=== PATIENT | male | born 1935 | race Caucasian/White ===

== ENCOUNTER → 2016-08-11 | Outpatient (CLI) | payer MEDICARE, BC ==
[2016-08-11 12:25] LABS: ALT 37 U/L (21-72); AST 19 U/L (17-59); Alkaline Phosphatase 63 U/L (38-126); Anion Gap 11 mmol/L; Blood Urea Nitrogen 26 mg/dL (9-20); Calcium 9.8 mg/dL (8.4-10.2); Carbon Dioxide 27 mmol/L (22-30); Chloride 106 mmol/L (98-107); Cholesterol 154 mg/dL (<200); Glucose 106 mg/dL (74-99); HDL Cholesterol 40 mg/dL (40-60); Non-African American GFR(MDRD) >60 (>60 ml/min/1.73 sqM); Sodium 144 mmol/L (137-145); Total Bilirubin 0.6 mg/dL (0.2-1.3); Triglycerides 84 mg/dL (<150)
== END | disposition home or self-care (01) ==
LOC: LABWHC1 11:43
PROVIDERS: ATTEND Internal Medicine Interventional Cardiology
DX: E78.2 Mixed hyperlipidemia (principal)
CPT/HCPCS: 36415; 80053; 80061

== ENCOUNTER → 2017-02-22 | Outpatient (CLI) | payer MEDICARE, BC ==
[2017-02-22 10:30] LABS: ALT 33 U/L (21-72); Cholesterol 152 mg/dL (<200); HDL Cholesterol 39 mg/dL (40-60); Triglycerides 80 mg/dL (<150)
[2017-02-22 11:08] LABS: AST 19 U/L (17-59)
== END | disposition home or self-care (01) ==
LOC: LABWHC1 10:01
PROVIDERS: ATTEND Internal Medicine Interventional Cardiology
DX: E78.2 Mixed hyperlipidemia (principal)
CPT/HCPCS: 36415; 80061; 84450; 84460

== ENCOUNTER → 2018-03-07 | Outpatient (CLI) | payer MEDICARE, BC ==
[2018-03-07 11:34] LABS: Albumin 3.8 g/dL (3.5-5.0); Calcium 9.5 mg/dL (8.4-10.2); Total Bilirubin 0.5 mg/dL (0.2-1.3); Total Protein 6.4 g/dL (6.3-8.2)
[2018-03-07 11:39] LABS: Potassium 5.6 mmol/L (3.5-5.1)
== END | disposition home or self-care (01) ==
LOC: LABWHC1 10:40
PROVIDERS: ATTEND Internal Medicine Interventional Cardiology
DX: E78.2 Mixed hyperlipidemia (principal)
CPT/HCPCS: 36415; 80053; 80061

== ENCOUNTER → 2018-06-26 | Outpatient (CLI) | payer MEDICARE, BC ==
--- NOTE | 2018-06-26 16:39 | US ---
EXAMINATION TYPE: US duplex aorta DATE OF EXAM: 06/26/2018 COMPARISON: Correlation CT 06/06/2017 CLINICAL HISTORY: 83-year-old male I70.0 BLK JKT. Atherosclerosis of Aorta, nonsmoker, No hx ot high cholesterol TECHNIQUE: Multiple sonographic images of the abdominal aorta are obtained. FINDINGS: EXAM MEASUREMENTS: Abdominal Aorta: Proximal: 2.2 x 2.9 cm, ectatic Mid: 2.0 x 2.4 cm Distal: 1.5 x 2.0 cm Bifurcation: Right- 1.0 x 1.3 cm Left- 0.8 x 1.3 cm [employer]r [employer] notes:Portions of the Aorta are not seen due to overlying bowel gas. Atherosclerotic changes seen. Limited exam due to overlying bowel gas IMPRESSION: Bowel gas limits visualization of portions of the abdominal aorta. There is ectasia/borderline aneury sm of the proximal abdominal aorta at 2.9 cm. No visualized AAA.
== END ==
LOC: RADUSWWP 10:09
PROVIDERS: ATTEND Physician Assistant
DX: I71.4 Abdominal aortic aneurysm, without rupture (principal); I77.811 Abdominal aortic ectasia
CPT/HCPCS: 93979

== ENCOUNTER 2018-07-19 04:00 | Observation (INO) | payer MEDICARE, BC ==
[2018-07-19] MEDS ORDERED: ASPIRIN 81 MG PO STA (04:42)
--- NOTE | 2018-07-19 05:02 | ED ---
General Adult HPI - General Chief complaint: Abdominal Pain Stated complaint: Flank Pain Time Seen by Provider: 07/19/18 04:33 Source: patient, EMS Mode of arrival: EMS Limitations: no limitations, language barrier - History of Present Illness Initial comments: Otis is an 83-year-old male with a history of cardiac disease who presents to the emergency department today for evaluation of pain in his left flank and under his ribs on the left side. Patient reports intermittent he came pain in his left chest below his ribs. Patient reports over the past 2 weeks the pain is began occurring more frequently and more severely. Pain is associated with shortness of breath and occasional diaphoresis. Patient cannot identify any exacerbating or relieving factors. Patient reports this morning the pain happened and woke him from sleep which prompted him to come to ER for further evaluation. - Related Data Home Medications Medication Instructions Recorded Confirmed RX: Aspirin 81 mg PO HS 03/11/15 07/19/18 Atorvastatin [Lipitor] 40 mg PO HS 06/06/17 07/19/18 Previous Rx's Medication Instructions Recorded RX: Lisinopril [Zestril] 5 mg PO BID #180 tab 05/22/14 RX: Metoprolol Tartrate [Lopressor] 50 mg PO BID #180 tab 05/22/14 RX: Nitroglycerin Sl Tabs 0.4 mg SUBLINGUAL Q5M PRN #25 tab 05/22/14 [Nitrostat] RX: Spironolactone [Aldactone] 25 mg PO DAILY #90 tab 05/22/14 Allergies Allergy/AdvReac Type Severity Reaction Status Date / Time No Known Allergies Allergy Verified 07/19/18 08:22 Review of Systems ROS Statement: Those systems with pertinent positive or pertinent negative responses have been documented in the HPI. ROS Other: All systems not noted in ROS Statement are negative. Past Medical History Past Medical History: Hyperlipidemia, Hypertension, Myocardial Infarction (MD) Additional Past Medical History / Comment(s): 03/11/15 Pt presented to [facility] ER via EMS for L sided chest pain which has been episodic for about 2 weeks. Sometimes chest and throat pressure. He also notes upper L sided abdominal pain. He also has had headache and SOB as well as diaphoresis. Other HX: Anterior wall MD 05/18/14, ischemic cardiomyopathy with systolic dysfuction, Echo with mild LVH, left ventricular systolic function, moderate-severely impaired with EF 30-35%, mild tri/mitral regurg, A/s hypokinesis, apical anterior L ventricular wall hypokinesis, septal wall hypokinesis, spinal stenosis, numbness to bilateral legs and feet, BPH Last Myocardial Infarction Date:: 05/18/2014 History of Any Multi-Drug Resistant Organisms: None Reported Past Surgical History: Heart Catheterization With Stent Additional Past Surgical History / Comment(s): HEART CATH WITH 3 STENTS (2 stents to LAD) and 06/03/14 (1 stent to obtuse marginal), colonoscopy- normal Past Anesthesia/Blood Transfusion Reactions: No Reported Reaction Additional Past Anesthesia/Blood Transfusion Reaction / Comment(s): Pt states he has never had general anesthesia. He also has never recieved blood. Date of Last Stent Placement:: 06/03/14 Past Psychological History: No Psychological Hx Reported Smoking Status: Never smoker Past Alcohol Use History: None Reported Past Drug Use History: None Reported - Past Family History Father Family Medical History: No Reported History Additional Family Medical History / Comment(s): Father in his 80's. Mother Family Medical History: Coronary Artery Disease (CAD) Additional Family Medical History / Comment(s): Mother at age 63yrs and pt believes it may have been due to a heart problem. General Exam - General Exam Comments Initial Comments: Physical Exam GENERAL: Patient is well-developed and well-nourished. Patient is nontoxic and well- hydrated and is in no distress. HENT: Normocephalic, Atraumatic. EYES: PERRL, EOMI PULMONARY: Unlabored respirations. No audible rales rhonchi or wheezing was noted. CARDIOVASCULAR: There is a regular rate and rhythm Systolic murmur ABDOMEN: Soft and nontender with normal bowel sounds. SKIN: Skin is clear with no lesions or rashes and otherwise unremarkable. : Deferred NEUROLOGIC: Patient is alert and oriented x3. Moving all extremities spontaneously MUSCULOSKELETAL: Normal extremities with adequate strength and full range of motion. No lower extremity swelling or edema. No calf tenderness. PSYCHIATRIC: Normal psychiatric evaluation. Limitations: no limitations Limitations: no limitations, language barrier Course Vital Signs 07/19/18 07/19/18 07/19/18 04:02 06:46 07:49 Temperature 98.3 F 98.4 F 98.4 F Pulse Rate 87 70 70 Respiratory 19 19 18 Rate Blood Pressure 164/82 143/77 145/72 O2 Sat by Pulse 97 96 Oximetry EKG Findings - EKG Comments: EKG Findings:: EEG obtained at 4:10 AM, rate is 80, rhythm is sinus, normal axis , normal intervals, CO 200, QRS 108, QTC 452. No acute ST elevations or depressions no evidence of acute ischemia or infarction. Medical Decision Making - Medical Decision Making Patient was seen and evaluated history was obtained from patient and review of medical record sign patient describes this pain is left lateral flank below his ribs. Patient denies any chest pain but does complain of aching within his ribs. Patient reports his pain becoming more frequent and more severe. Patient does have a significant cardiac history. A cardiac was ordered, chest x-rays no acute findings, labs with no significant abnormalities, patient currently not on any antiplatelet or anticoagulant medication therefore CT pulmonary embolism study was ordered and revealed no acute pulmonary embolism. At this time I do feel there is a high risk of patient's discomfort being related to cardiac etiology therefore we'll plan to admit the patient with a consult to cardiology. Patient agreeable with this plan. - Lab Data Result diagrams: 07/19/18 04:06 07/19/18 04:06 Lab Results 07/19/18 07/19/18 07/19/18 Range/Units 04:06 04:06 04:06 WBC 9.4 (3.8-10.6) k/uL RBC 4.58 (4.30-5.90) m/uL Hgb 13.8 (13.0-17.5) gm/dL Hct 42.6 (39.0-53.0) % MCV 93.0 (80.0-100.0) fL MCH 30.2 (25.0-35.0) pg MCHC 32.4 (31.0-37.0) g/dL RDW 12.8 (11.5-15.5) % Plt Count 210 (150-450) k/uL Neutrophils % 55 % Lymphocytes % 32 % Monocytes % 6 % Eosinophils % 4 % Basophils % 1 % Neutrophils # 5.2 (1.3-7.7) k/uL Lymphocytes # 3.0 (1.0-4.8) k/uL Monocytes # 0.6 (0-1.0) k/uL Eosinophils # 0.4 (0-0.7) k/uL Basophils # 0.1 (0-0.2) k/uL PT (9.0-12.0) sec INR (<1.2) APTT (22.0-30.0) sec D-Dimer (<0.60) mg/L FEU Sodium 141 (137-145) mmol/L Potassium 4.3 (3.5-5.1) mmol/L Chloride 107 (98-107) mmol/L Carbon Dioxide 21 L (22-30) mmol/L Anion Gap 13 mmol/L BUN 36 H (9-20) mg/dL Creatinine 1.15 (0.66-1.25) mg/dL Est GFR (CKD-EPI)AfAm 67 (>60 ml/min/1.73 sqM) Est GFR (CKD-EPI)NonAf 58 (>60 ml/min/1.73 sqM) Glucose 104 H (74-99) mg/dL Calcium 9.1 (8.4-10.2) mg/dL Magnesium 2.0 (1.6-2.3) mg/dL Total Bilirubin 0.6 (0.2-1.3) mg/dL AST 24 (17-59) U/L ALT 38 (21-72) U/L Alkaline Phosphatase 69 (38-126) U/L Total Creatine Kinase 42 L (55-170) U/L CK-MB (CK-2) 0.5 (0.0-2.4) ng/mL CK-MB (CK-2) Rel Index 1.2 Troponin I <0.012 (0.000-0.034) ng/mL Total Protein 6.8 (6.3-8.2) g/dL Albumin 3.9 (3.5-5.0) g/dL Urine Color Urine Appearance (Clear) Urine pH (5.0-8.0) Ur Specific [place] (1.001-1.035) Urine Protein (Negative) Urine Glucose (UA) (Negative) Urine Ketones (Negative) Urine Blood (Negative) Urine Nitrite (Negative) Urine Bilirubin (Negative) Urine Urobilinogen (<2.0) mg/dL Ur Leukocyte Esterase (Negative) 07/19/18 07/19/18 Range/Units 04:06 06:00 WBC (3.8-10.6) k/uL RBC (4.30-5.90) m/uL Hgb (13.0-17.5) gm/dL Hct (39.0-53.0) % MCV (80.0-100.0) fL MCH (25.0-35.0) pg MCHC (31.0-37.0) g/dL RDW (11.5-15.5) % Plt Count (150-450) k/uL Neutrophils % % Lymphocytes % % Monocytes % % Eosinophils % % Basophils % % Neutrophils # (1.3-7.7) k/uL Lymphocytes # (1.0-4.8) k/uL Monocytes # (0-1.0) k/uL Eosinophils # (0-0.7) k/uL Basophils # (0-0.2) k/uL PT 11.0 (9.0-12.0) sec INR 1.0 (<1.2) APTT 24.6 (22.0-30.0) sec D-Dimer 0.54 (<0.60) mg/L FEU Sodium (137-145) mmol/L Potassium (3.5-5.1) mmol/L Chloride (98-107) mmol/L Carbon Dioxide (22-30) mmol/L Anion Gap mmol/L BUN (9-20) mg/dL Creatinine (0.66-1.25) mg/dL Est GFR (CKD-EPI)AfAm (>60 ml/min/1.73 sqM) Est GFR (CKD-EPI)NonAf (>60 ml/min/1.73 sqM) Glucose (74-99) mg/dL Calcium (8.4-10.2) mg/dL Magnesium (1.6-2.3) mg/dL Total Bilirubin (0.2-1.3) mg/dL AST (17-59) U/L ALT (21-72) U/L Alkaline Phosphatase (38-126) U/L Total Creatine Kinase (55-170) U/L CK-MB (CK-2) (0.0-2.4) ng/mL CK-MB (CK-2) Rel Index Troponin I (0.000-0.034) ng/mL Total Protein (6.3-8.2) g/dL Albumin (3.5-5.0) g/dL Urine Color Yellow Urine Appearance Clear (Clear) Urine pH 6.5 (5.0-8.0) Ur Specific [place] 1.015 (1.001-1.035) Urine Protein Negative (Negative) Urine Glucose (UA) Negative (Negative) Urine Ketones 1+ H (Negative) Urine Blood Negative (Negative) Urine Nitrite Negative (Negative) Urine Bilirubin Negative (Negative) Urine Urobilinogen <2.0 (<2.0) mg/dL Ur Leukocyte Esterase Negative (Negative) Disposition Clinical Impression: Chest pain Disposition: ADMITTED IP TO THIS HOSP Condition: Stable Is patient prescribed a controlled substance at d/c from ED?: No Referrals: Travon Larios MD [Primary Care Provider] - 1-2 days
--- NOTE | 2018-07-19 05:11 | XR ---
EXAM: XR Chest, 2 Views CLINICAL HISTORY: ITS.REASON XR Reason: Chest Pain TECHNIQUE: Frontal and lateral views of the chest. COMPARISON: 05/24/16 chest x-ray IMPRESSION: Cardiomegaly. No consolidation or pleural effusion.
[2018-07-19 06:24] LABS: Basophils # (A) 0.1 k/uL (0-0.2); Basophils % (A) 1 %; Eosinophils # (A) 0.4 k/uL (0-0.7); Eosinophils % (A) 4 %; HCT 42.6 % (39.0-53.0); HGB 13.8 gm/dL (13.0-17.5); Lymphocytes % (A) 32 %; MCH 30.2 pg (25.0-35.0); MCHC 32.4 g/dL (31.0-37.0); Mean Platelet Volume 7.9; Monocytes # (A) 0.6 k/uL (0-1.0); Monocytes % (A) 6 %; Neutrophils # (A) 5.2 k/uL (1.3-7.7); Neutrophils % (A) 55 %; Platelet Count 210 k/uL (150-450); RBC 4.58 m/uL (4.30-5.90); RDW 12.8 % (11.5-15.5); WBC 9.4 k/uL (3.8-10.6)
[2018-07-19 06:37] LABS: Albumin 3.9 g/dL (3.5-5.0); Calcium 9.1 mg/dL (8.4-10.2); Potassium 4.3 mmol/L (3.5-5.1); Total Bilirubin 0.6 mg/dL (0.2-1.3); Total Protein 6.8 g/dL (6.3-8.2)
[2018-07-19 06:38] LABS: D-Dimer 0.54 mg/L FEU (<0.60); Partial Thromboplastin Time 24.6 sec (22.0-30.0)
[2018-07-19 06:44] LABS: Appearance,Urine Clear (Clear); Bilirubin,Urine Negative (Negative); Blood,Urine Negative (Negative); Color,Urine Yellow; Glucose,Urine (UA) Negative (Negative); Ketones,Urine 1+ (Negative); Leukocyte Esterase,Urine Negative (Negative); Nitrite,Urine Negative (Negative); PH, Urine 6.5 (5.0-8.0); Protein,Urine Negative (Negative); Specific Gravity,Urine 1.015 (1.001-1.035); Urobilinogen,Urine <2.0 mg/dL (<2.0)
[2018-07-19 06:51] LABS: Creatine Kinase 42 U/L (55-170)
[2018-07-19 07:03] LABS: Creatine Kinase MB 0.5 ng/mL (0.0-2.4); Troponin I <0.012 ng/mL (0.000-0.034)
--- NOTE | 2018-07-19 08:04 | CT ---
CT CHEST FOR PULMONARY EMBOLISM. EXAMINATION TYPE: CT chest angio for PE DATE OF EXAM: 07/19/2018 INDICATION: Pleuritic pain, left side CT DLP: 367.8 mGycm, Automated exposure control for dose reduction was used. CONTRAST: Patient injected with 100 ml mL of Isovue 370. COMPARISON: None TECHNIQUE: CT of the chest is performed on a spiral scan at 2 mm thick sections. Study is performed with intravenous contrast timed for evaluation for pulmonary embolism. This will limit additional po rtions of the evaluation. 3-D MIP images reconstructed by the technologist are reviewed on the compu ter in the coronal and sagittal planes. FINDINGS: No persistent filling defects are evident to suggest an acute pulmonary embolism. No mediastinal or hilar adenopathy enlarged by CT criteria is evident. The ascending aorta diameter at the level of the main pulmonary artery is 3.8 cm. The main pulmonary artery diameter at the bifur cation is 2.7 cm. Very minimal pneumonitis changes are present within the dependent portions of the lungs, likely on th e basis of atelectasis. Limited CT section through the upper abdomen are unremarkable. IMPRESSIONS: 1. No acute pulmonary embolism.
[2018-07-19] MEDS ORDERED: NITROGLYCERIN SL TABS 0.4 MG TAB SUBLINGUAL PRN (08:26)
[2018-07-19] MEDS: METOPROLOL TARTRATE 50 MG TAB PO SCH ×2 (10:18→20:28)
[2018-07-19] MEDS: SPIRONOLACTONE 25 MG TAB PO SCH (10:18)
[2018-07-19] MEDS: LISINOPRIL 5 MG TAB PO SCH ×2 (10:18→20:28)
--- NOTE | 2018-07-19 11:12 | ECHOF ---
Referral Reason:pain MEASUREMENTS -------- HEIGHT: 180.3 cm WEIGHT: 93.0 kg BP: 145/72 RVIDd: 3.5 cm (< 3.3) IVSd: 1.3 cm (0.6 - 1.1) LVIDd: 4.0 cm (3.9 - 5.3) LVPWd: 1.3 cm (0.6 - 1.1) IVSs: 1.7 cm LVIDs: 2.9 cm LVPWs: 1.6 cm LA Diam: 2.8 cm (2.7 - 3.8) LAESV Index (A-L): 24.13 ml/m Ao Diam: 4.6 cm (2.0 - 3.7) AV Cusp: 2.0 cm (1.5 - 2.6) EPSS: 1.8 cm MV E Clay: 0.79 m/s MV DecT: 265 ms MV A Clay: 1.23 m/s MV E/A Ratio: 0.64 AR PHT: 317 ms MV EF SLOPE: 227.24 mm/s (70 - 150) MV EXCURSION: 1.93 cm (> 18.000) FINDINGS -------- Sinus rhythm. This was a technically difficult study with suboptimal views. The left ventricular size is normal. There is mild concentric left ventricular hypertrophy. Overa ll left ventricular systolic function is mild-moderately impaired with, an EF between 40 - 45 %. Mi d anterior LV wall motion is hypokinetic. Apical anterior LV wall motion is hypokinetic. Apical lateral LV wall motion is hypokinetic. Apical inferior LV wall motion is normal. Apical septum LV wall motion is hypokinetic. The right ventricle is mildly enlarged. The left atrial size is normal. The right atrial size is normal. 3 ml of Lumason was utilized for enhancement of images. The aortic valve is trileaflet and appears structurally normal. There is mild aortic regurgitation. Mild mitral annular calcification present. Mild mitral regurgitation is present. The tricuspid valve appears structurally normal. Trace tricuspid regurgitation present. Trace/mild (physiologic) pulmonic regurgitation. 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 IVC Not well visulized. There is no pericardial effusion. CONCLUSIONS -------- 1. Sinus rhythm. 2. This was a technically difficult study with suboptimal views. 3. The left ventricular size is normal. 4. There is mild concentric left ventricular hypertrophy. 5. Overall left ventricular systolic function is mild-moderately impaired with, an EF between 40 - 45 %. 6. Mid anterior LV wall motion is hypokinetic. 7. Apical anterior LV wall motion is hypokinetic. 8. Apical lateral LV wall motion is hypokinetic. 9. Apical inferior LV wall motion is normal. 10. Apical septum LV wall motion is hypokinetic. 11. The right ventricle is mildly enlarged. 12. The left atrial size is normal. 13. 3 ml of Lumason was utilized for enhancement of images. 14. The aortic valve is trileaflet and appears structurally normal. 15. There is mild aortic regurgitation. 16. Mild mitral annular calcification present. 17. Mild mitral regurgitation is present. 18. The tricuspid valve appears structurally normal. 19. Trace/mild (physiologic) pulmonic regurgitation. 20. 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 21. IVC Not well visulized. 22. There is no pericardial effusion. HOG TENDER: LAURENCE Peace
[2018-07-19 12:24] LABS: Creatine Kinase 48 U/L (55-170)
[2018-07-19 12:34] LABS: Creatine Kinase MB 0.5 ng/mL (0.0-2.4); Troponin I <0.012 ng/mL (0.000-0.034)
--- NOTE | 2018-07-19 14:26 | P.CRDCN ---
History of Present Illness History of present illness: This is a pleasant 83-year-old male past medical history significant for coronary artery disease status post multiple angioplasties, ischemic cardiomyopathy, chronic systolic heart failure, hypertension, dyslipidemia, diverticulitis, proximal aortic aneurysm and BPH. He follows with Dr. Alford in the office. We have been asked to see him in consultation for chest pain. He states for the previous 3-4 weeks he has been feeling a pain at the base of his ribs on the left torso/flank region. He denies any trauma or specific reason for the pain to have started. The pain comes when he takes a deep breath or lays a certain way. He states during the day he doesn't feel the pain as much when he is up and moving around. When he lays down at night on his right side is when he feels the pain. When he rolls to his left side the pain subsides. While he is having he pain sometimes he feels mild nausea but no vomiting. He denies shortness of breath, dizziness or palpitations. EKG reveals sinus mechanism with poor R-wave progression, no acute ST or T-wave abnormalities. Chest xray negative for an acute cardiopulmonary process. CTA negative for PE. Laboratory data reviewed, WBC 9.4, hemoglobin 13.8, platelets 210, d-dimer 0.54 , sodium 141, potassium 4.3, magnesium 2.0, creatinine 1.15, GFR 58, cardiac enzymes negative 1. Current cardiac medications include aspirin 81 mg daily, atorvastatin 40 mg daily, lisinopril 5 mg twice a day, Lopressor 50 mg twice a day and Aldactone 25 mg daily. Most recent echocardiogram performed in the office February 2018 reveals mildly impaired left ventricular function with ejection fraction 45%, mild to moderate aortic regurgitation, mild MR and mild TR. Most recent cardiac catheterization performed 2014 revealed a patent stent in the left circumflex and LAD arteries. Prior to that he underwent stenting of the proximal OM, 2 stents to mid LAD in 1 to the proximal LAD in 2013. He also had a 20% lesion noted in the mid RCA at that time. At the time of my exam: CONSTITUTIONAL: Denies fever. Denies chills. EYES: Denies blurred vision. Denies vision changes. Denies eye pain. EARS, NOSE, MOUTH & THROAT: Denies headache. Denies sore throat. Denies ear pain. CARDIOVASCULAR: Denies chest pain. Denies shortness of breath. Denies orthopnea. Denies PND. Denies palpitations. RESPIRATORY: Denies cough. GASTROINTESTINAL: Denies abdominal pain. Denies diarrhea. Denies constipation. Denies nausea. Denies vomiting. MUSCULOSKELETAL: Denies myalgias. INTEGUMENTARY: Denies pruitis. Denies rash. NEUROLOGIC: Denies numbness. Denies tingling. Denies weakness. PSYCHIATRIC: Denies anxiety. Denies depression. ENDOCRINE: Denies fatigue. Denies weight change. Denies polydipsia. Denies polyurina. GENITOURINARY: Denies burning, hematuria or urgency with micturation. HEMATOLOGIC: Denies history of anemia. Denies bleeding. Blood pressure 145/72 heart rate 70 afebrile maintaining oxygen saturation on room air GENERAL: This is a 83-year-old male in no apparent distress at the time of my examination. HEENT: Head is atraumatic, normocephalic. Pupils are equal, round. Sclerae anicteric. Conjunctivae are clear. Mucous membranes of the mouth are moist. Neck is supple. There is no jugular venous distention. No carotid bruit is heard. LUNGS: Clear to auscultation no wheezes, rales or rhonchi. No chest wall tenderness is noted on palpation or with deep breathing. HEART: Regular rate and rhythm with systolic ejection murmur at the base, no rubs or gallops. S1 and S2 heard. ABDOMEN: Soft, nontender. Bowel sounds are heard. No organomegaly noted. EXTREMITIES: No evidence of peripheral edema and no calf tenderness noted. VASCULAR: Radial and dorsalis pedis pulses palpated, no evidence of clubbing. NEUROLOGIC: Patient is awake, alert and oriented x3. ASSESSMENT Pleuritic left torso and flank pain History of coronary artery disease s/p multiple angioplasties 2014, patent stents noted on catheterization in 2015 Ischemic cardiomyopathy Chronic systolic heart failure, currently euvolemic Hypertension Dyslipidemia PLAN Obtain 2D echocardiogram and doppler study to assess cardiac structure and function. Check sedimentation rate and c-reactive protein. Consider possible imaging of the abdomen. Otherwise, pain is atypical for angina and most likely related to muscular type pain. Follow up with Dr. Alford in 2-3 weeks post discharge. Thank you kindly for this consultation. Nurse Practitioner note has been reviewed, I agree with a documented findings and plan of care. Patient was seen and examined. Past Medical History Past Medical History: Hypertension, Myocardial Infarction ([place]) Additional Past Medical History / Comment(s): Anterior wall IN 05/18/14, ischemic cardiomyopathy, spinal stenosis, numbness to bilateral legs and feet, BPH, pt denies hyperlipidemia-takes lipitor. Last Myocardial Infarction Date:: 05/18/2014 History of Any Multi-Drug Resistant Organisms: None Reported Past Surgical History: Heart Catheterization, Heart Catheterization With Stent Additional Past Surgical History / Comment(s): HEART CATH WITH 3 STENTS (2 stents to LAD) and 06/03/14 (1 stent to obtuse marginal), cardiac cath 2014, colonoscopy-normal Past Anesthesia/Blood Transfusion Reactions: No Reported Reaction Additional Past Anesthesia/Blood Transfusion Reaction / Comment(s): Pt states he has never had general anesthesia. He also has never recieved blood. Date of Last Stent Placement:: 06/03/14 Smoking Status: Never smoker - Past Family History Father Family Medical History: No Reported History Additional Family Medical History / Comment(s): Father in his 80's. Mother Family Medical History: Coronary Artery Disease (CAD) Additional Family Medical History / Comment(s): Mother at age 63yrs and pt believes it may have been due to a heart problem. Medications and Allergies Home Medications Medication Instructions Recorded Confirmed Type Lisinopril [Zestril] 5 mg PO BID #180 tab 05/22/14 07/19/18 Rx Metoprolol Tartrate [Lopressor] 50 mg PO BID #180 tab 05/22/14 07/19/18 Rx Nitroglycerin Sl Tabs [Nitrostat] 0.4 mg SUBLINGUAL Q5M PRN #25 tab 05/22/14 Rx Spironolactone [Aldactone] 25 mg PO DAILY #90 tab 05/22/14 07/19/18 Rx Aspirin 81 mg PO HS 03/11/15 07/19/18 History Atorvastatin [Lipitor] 40 mg PO HS 06/06/17 07/19/18 History Allergies Allergy/AdvReac Type Severity Reaction Status Date / Time No Known Allergies Allergy Verified 07/19/18 08:22 Physical Exam Vitals: Vital Signs Temp Pulse Resp BP Pulse Ox 07/19/18 07:49 98.4 F 70 18 145/72 07/19/18 06:46 98.4 F 70 19 143/77 96 07/19/18 04:02 98.3 F 87 19 164/82 97 Intake and Output 07/18/18 07/19/18 07/19/18 22:59 06:59 14:59 Other: Weight 92.986 kg Results 07/19/18 04:06 07/19/18 04:06 Cardiac Enzymes 07/19/18 07/19/18 Range/Units 04:06 04:06 AST 24 (17-59) U/L CK-MB (CK-2) 0.5 (0.0-2.4) ng/mL Troponin I <0.012 (0.000-0.034) ng/mL Coagulation 07/19/18 Range/Units 04:06 PT 11.0 (9.0-12.0) sec APTT 24.6 (22.0-30.0) sec CBC 07/19/18 Range/Units 04:06 WBC 9.4 (3.8-10.6) k/uL RBC 4.58 (4.30-5.90) m/uL Hgb 13.8 (13.0-17.5) gm/dL Hct 42.6 (39.0-53.0) % Plt Count 210 (150-450) k/uL Comprehensive Metabolic Panel 07/19/18 Range/Units 04:06 Sodium 141 (137-145) mmol/L Potassium 4.3 (3.5-5.1) mmol/L Chloride 107 (98-107) mmol/L Carbon Dioxide 21 L (22-30) mmol/L BUN 36 H (9-20) mg/dL Creatinine 1.15 (0.66-1.25) mg/dL Glucose 104 H (74-99) mg/dL Calcium 9.1 (8.4-10.2) mg/dL AST 24 (17-59) U/L ALT 38 (21-72) U/L Alkaline Phosphatase 69 (38-126) U/L Total Protein 6.8 (6.3-8.2) g/dL Albumin 3.9 (3.5-5.0) g/dL Current Medications Generic Name Dose Route Start Last Admin Trade Name Freq PRN Reason Stop Dose Admin Aspirin 325 mg 07/20/18 09:00 Aspirin PO DAILY [facility] Atorvastatin Calcium 40 mg 07/19/18 21:00 Lipitor PO HS MARJAN Lisinopril 5 mg 07/19/18 09:00 Zestril PO BID [facility] Metoprolol Tartrate 50 mg 07/19/18 09:00 Lopressor PO BID [facility] Nitroglycerin 0.4 mg 07/19/18 08:26 Nitrostat SUBLINGUAL Q5M PRN Chest Pain Spironolactone 25 mg 07/19/18 09:00 Aldactone PO DAILY [facility] Intake and Output 07/18/18 07/19/18 07/19/18 22:59 06:59 14:59 Other: Weight 92.986 kg 07/19/18 04:06 07/19/18 04:06
[2018-07-19] MEDS ORDERED: HYDROcodone/APAP 5-325MG 1 EACH TAB PO PRN (15:13)
[2018-07-19 16:54] LABS: Creatine Kinase 67 U/L (55-170)
[2018-07-19 17:07] LABS: Creatine Kinase MB 0.6 ng/mL (0.0-2.4); Troponin I <0.012 ng/mL (0.000-0.034)
[2018-07-19] MEDS ORDERED: ATORVASTATIN 40 MG TAB PO SCH (21:00)
[2018-07-20] MEDS: SODIUM CHLORIDE 0.9% 1,000 ML IV SCH ×2 (04:45→12:20)
[2018-07-20 07:24] LABS: Calcium 8.9 mg/dL (8.4-10.2); Potassium 4.6 mmol/L (3.5-5.1)
[2018-07-20 08:15] VITALS: RESP 16
[2018-07-20] MEDS: LISINOPRIL 5 MG TAB PO SCH (08:21)
[2018-07-20] MEDS: SPIRONOLACTONE 25 MG TAB PO SCH (08:21)
[2018-07-20] MEDS: METOPROLOL TARTRATE 50 MG TAB PO SCH (08:21)
[2018-07-20] MEDS ORDERED: ASPIRIN 325 MG TAB PO SCH (09:00)
[2018-07-20] MEDS ORDERED: ASPIRIN 81 MG PO SCH (09:00)
--- NOTE | 2018-07-20 12:59 | P.HPIM ---
History of Present Illness Date of service 07/19/2018. Patient seen and examined by me at bedside This is a pleasant 83 years old male with past medical history of hypertension, coronary artery disease, spinal stenosis stenosis, numbness in both legs and feet, BPH, hyperlipidemia, who presents because of progressively worsening left side abdominal pain thought processes due to the related to the chest however cost estimating engineer evaluated him and cleared him however he recommended abdominal imaging. Patient states the pain is slowly progressive over 2-3 weeks, and his maximum sutures 7/10. Nonspecific nonradiating but only on the left side. No associated nausea vomiting, no change in bowel or urine habits. Review of Systems CONSTITUTIONAL: No fever, no malaise, no fatigue. HEENT: No recent visual problems or hearing problems. Denied any sore throat. CARDIOVASCULAR: No orthopnea, PND, no palpitations, no syncope. PULMONARY: No shortness of breath, no cough, no hemoptysis. GASTROINTESTINAL: No diarrhea, no nausea, no vomiting, no abdominal pain. Normoactive bowel sounds. NEUROLOGICAL: No headaches, no weakness, no numbness. HEMATOLOGICAL: Denies any bleeding or petechiae. GENITOURINARY: Denies any burning micturition, frequency, or urgency. MUSCULOSKELETAL/RHEUMATOLOGICAL: Denies any joint pain, swelling, or any muscle pain. ENDOCRINE: Denies any polyuria or polydipsia. Past Medical History Past Medical History: Hypertension, Myocardial Infarction (PA) Additional Past Medical History / Comment(s): Anterior wall PA 05/18/14, ischemic cardiomyopathy, spinal stenosis, numbness to bilateral legs and feet, BPH, pt denies hyperlipidemia-takes lipitor. Last Myocardial Infarction Date:: 05/18/2014 History of Any Multi-Drug Resistant Organisms: None Reported Past Surgical History: Heart Catheterization, Heart Catheterization With Stent Additional Past Surgical History / Comment(s): HEART CATH WITH 3 STENTS (2 stents to LAD) and 06/03/14 (1 stent to obtuse marginal), cardiac cath 2014, colonoscopy-normal Past Anesthesia/Blood Transfusion Reactions: No Reported Reaction Additional Past Anesthesia/Blood Transfusion Reaction / Comment(s): Pt states he has never had general anesthesia. He also has never recieved blood. Date of Last Stent Placement:: 06/03/14 Smoking Status: Never smoker - Past Family History Father Family Medical History: No Reported History Additional Family Medical History / Comment(s): Father in his 80's. Mother Family Medical History: Coronary Artery Disease (CAD) Additional Family Medical History / Comment(s): Mother at age 63yrs and pt believes it may have been due to a heart problem. Medications and Allergies Home Medications Medication Instructions Recorded Confirmed Type RX: Lisinopril [Zestril] 5 mg PO BID #180 tab 05/22/14 07/19/18 Rx RX: Metoprolol Tartrate [Lopressor] 50 mg PO BID #180 tab 05/22/14 07/19/18 Rx RX: Nitroglycerin Sl Tabs 0.4 mg SUBLINGUAL Q5M PRN #25 tab 05/22/14 07/19/18 Rx [Nitrostat] RX: Spironolactone [Aldactone] 25 mg PO DAILY #90 tab 05/22/14 07/19/18 Rx RX: Aspirin 81 mg PO HS 03/11/15 07/19/18 History Atorvastatin [Lipitor] 40 mg PO HS 06/06/17 07/19/18 History Allergies Allergy/AdvReac Type Severity Reaction Status Date / Time No Known Allergies Allergy Verified 07/19/18 08:22 Physical Exam Vitals: Vital Signs Temp Pulse Pulse Resp BP BP Pulse Ox 07/20/18 12:00 97.6 F 59 L 16 103/56 97 07/20/18 08:00 98.3 F 66 16 142/74 95 07/20/18 04:00 97.6 F 64 18 119/66 96 07/20/18 00:00 97.7 F 71 18 116/65 96 07/19/18 20:00 76 18 07/19/18 19:59 98.4 F 76 18 128/67 96 07/19/18 14:14 98.4 F 79 18 143/69 97 07/19/18 13:47 98 F 77 20 106/76 97 Intake and Output 07/19/18 07/20/18 07/20/18 22:59 06:59 14:59 Intake Total 200 Balance 200 Intake: Oral 200 Other: Voiding Method Toilet Toilet Toilet # Voids 1 1 Weight 100.1 kg GENERAL: The patient is alert and oriented x3, not in any acute distress. Well developed, well nourished. HEENT: Pupils are round and equally reacting to light. EOMI. No scleral icterus. No conjunctival pallor. Normocephalic, atraumatic. No pharyngeal erythema. No thyromegaly. CARDIOVASCULAR: S1 and S2 present. No murmurs, rubs, or gallops. PULMONARY: Chest is clear to auscultation, no wheezing or crackles. ABDOMEN: Soft, nontender, nondistended, normoactive bowel sounds. No palpable organomegaly. MUSCULOSKELETAL: No joint swelling or deformity. EXTREMITIES: No cyanosis, clubbing, or pedal edema. NEUROLOGICAL: Gross neurological examination did not reveal any focal deficits. SKIN: No rashes. Results CBC & Chem 7: 07/19/18 04:06 07/20/18 06:42 Labs: Abnormal Lab Results - Last 24 Hours (Table) 07/20/18 Range/Units 06:42 Chloride 108 H (98-107) mmol/L BUN 28 H (9-20) mg/dL HDL Cholesterol 26 L (40-60) mg/dL Thrombosis Risk Factor Assmnt - Choose All That Apply Any of the Below Risk Factors Present?: Yes Each Factor Represents 1 point: Obesity (BMI >25) Each Risk Factor Represents 3 Points: Age 75 years or older Other congenital or acquired thrombophilia - If yes, enter type in comment: No Thrombosis Risk Factor Assessment Total Risk Factor Score: 4 Thrombosis Risk Factor Assessment Level: Moderate Risk Assessment and Plan Assessment: Left sided abdominal pain Left-sided chest pain, cardiology cleared the patient for discharge and follow- up in 3 weeks History of coronary artery disease History of ischemic cardiomyopathy History of hypertension Hyperlipidemia Numbness in both lower extremities. Plan: This is a pleasant 83 years old male who presents because of the left side abdominal pain. Continue with IV fluids, continue with pain medication. Cardiology consult is appreciated. Monitoring Labs and medication were reviewed.. Continue same treatment. Continue with symptomatic treatment. Resume home medication. Monitor lytes and vitals. DVT and GI prophylaxis. Further recommendations of the clinical course of the patient Prognosis is guarded
--- NOTE | 2018-07-20 13:07 | P.PN ---
Subjective This is a pleasant 83 years old male with past medical history of hypertension, coronary artery disease, spinal stenosis stenosis, numbness in both legs and feet, BPH, hyperlipidemia, who presents because of progressively worsening left side abdominal pain thought processes due to the related to the chest however hydro station operator evaluated him and cleared him however he recommended abdominal imaging. Patient states the pain is slowly progressive over 2-3 weeks, and his maximum sutures 7/10. Nonspecific nonradiating but only on the left side. No associated nausea vomiting, no change in bowel or urine habits. 07/20/2018, date of service Patient is seen and examined by me at bedside. Patient states that he has this pain last night about 7/10 in severity, however it came down to 3/10 this morning. However patient, first immediate is a slowly progressive over 2-3 weeks. Patient recommended to have a CAT scan of the abdomen without contrast. Patient preferred to be without contrast for now. Also we will call Surgical evaluation. We checked ESR today and is 8. Creatinine is 1.0. Sodium and potassium are within normal limits. Objective - Vital Signs Vital signs: Vital Signs Temp 97.6 F 07/20/18 12:00 Pulse 59 L 07/20/18 12:00 Resp 16 07/20/18 12:00 BP 103/56 07/20/18 12:00 Pulse Ox 97 07/20/18 12:00 Intake & Output 07/19/18 07/20/18 07/20/18 18:59 06:59 18:59 Intake Total 200 Balance 200 Weight 100.1 kg 100.1 kg Intake: Oral 200 Other: Voiding Method Toilet Toilet # Voids 1 1 - Exam GENERAL: The patient is alert and oriented x3, not in any acute distress. Well developed, well nourished. HEENT: Pupils are round and equally reacting to light. EOMI. No scleral icterus. No conjunctival pallor. Normocephalic, atraumatic. No pharyngeal erythema. No thyromegaly. CARDIOVASCULAR: S1 and S2 present. No murmurs, rubs, or gallops. PULMONARY: Chest is clear to auscultation, no wheezing or crackles. ABDOMEN: Soft, nontender, nondistended, normoactive bowel sounds. No palpable organomegaly. MUSCULOSKELETAL: No joint swelling or deformity. EXTREMITIES: No cyanosis, clubbing, or pedal edema. NEUROLOGICAL: Gross neurological examination did not reveal any focal deficits. SKIN: No rashes. - Labs CBC & Chem 7: 07/19/18 04:06 07/20/18 06:42 Labs: Abnormal Lab Results - Last 24 Hours (Table) 07/20/18 Range/Units 06:42 Chloride 108 H (98-107) mmol/L BUN 28 H (9-20) mg/dL HDL Cholesterol 26 L (40-60) mg/dL Assessment and Plan Assessment: Left sided abdominal pain Left-sided chest pain, cardiology cleared the patient for discharge and follow- up in 3 weeks History of coronary artery disease History of ischemic cardiomyopathy History of hypertension Hyperlipidemia Numbness in both lower extremities. Plan: This is a pleasant 83 years old male who presents because of the left side abdominal pain. Continue with IV fluids, continue with pain medication. Cardiology consult is appreciated. keep Monitoring. Call surgical consult. CAT scan of the abdomen Labs and medication were reviewed.. Continue same treatment. Continue with symptomatic treatment. Resume home medication. Monitor lytes and vitals. DVT and GI prophylaxis. Further recommendations of the clinical course of the patient Prognosis is guarded
--- NOTE | 2018-07-20 14:22 | CT ---
EXAMINATION TYPE: CT abdomen pelvis w con DATE OF EXAM: 07/20/2018 COMPARISON: 06/06/2017 HISTORY: Left sided flank pain CT DLP: 1313.6 mGycm Automated exposure control for dose reduction was used. TECHNIQUE: Helical acquisition of images was performed from the lung bases through the pelvis. CONTRAST: Performed without Oral Contrast and with IV Contrast, patient injected with 80 mL of Isovue 300. FINDINGS: There is mild subsegmental atelectasis at the left lung base. There is no pleural effusion. Heart siz e is normal. There is no pericardial effusion. Liver shows no focal defect. Gallbladder appears normal. Bile ducts are not dilated. There is 1 0 m c yst in the superior spleen. Stomach appears normal. There is no adrenal mass. There is no evidence of pancreatic mass. There is vascular calcification. There is no hydronephrosis. Kidneys show satisfactory contrast opacification. Ureters are not dilated . There is no retroperitoneal adenopathy. Bladder distends smoothly. Prostate is enlarged and measure s 5 cm. There is no inguinal hernia. There is no free fluid in the pelvis. There are multiple sigmoid diverticula. There is no sign of diverticulitis. There is no evidence of a bowel obstruction. Append ix appears normal. There is no mesenteric edema or adenopathy. There is no evidence of a bowel obstruction. There is spondylotic changes in the lumbar spine and multilevel severe lumbar spinal stenosis from L1 to L5. 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 IMPRESSION: MILD SIGMOID DIVERTICULOSIS WITHOUT DIVERTICULITIS. MULTILEVEL LUMBAR MODERATELY SEVERE SPINAL STENOS IS. NO SIGNIFICANT CHANGE COMPARED TO OLD EXAM.
[2018-07-20] MEDS ORDERED: ACETAMINOPHEN TAB 325 MG TAB PO PRN (15:41)
[2018-07-20] MEDS ORDERED: LIDOCAINE 5% PATCH TOPICAL SCH (16:00)
[2018-07-20 16:15] VITALS: BP 132/69; PULSE 67; TEMP 97.5
[2018-07-20] MEDS ORDERED: FAMOTIDINE 20 MG/2 ML VIAL IV SCH (21:00)
[2018-07-20] MEDS ORDERED: HEPARIN SODIUM,PORCINE 5,000 UNIT/ML 1 ML VIAL SQ SCH (21:00)
--- NOTE | 2018-07-26 07:31 | P.DS ---
Providers Date of admission: 07/19/18 08:26 Attending physician: Tiesha Landin Consults: 07/19/18 08:26 Consult Physician Urgent Consulting Provider: [facility] Consult Reason/Comments: chest pain Do you want consulting provider notified?: Yes 07/20/18 15:27 Consult Physician Routine Consulting Provider: Travon Eddy Consult Reason/Comments: flank pain Do you want consulting provider notified?: Already Contacted Primary care physician: Travon Larios [facility] Course: This is a pleasant 83 years old male with past medical history of hypertension, coronary artery disease, spinal stenosis stenosis, numbness in both legs and feet, BPH, hyperlipidemia, who presents because of progressively worsening left side abdominal pain thought processes due to the related to the chest however lead fire protection engineer evaluated him and cleared him however he recommended abdominal imaging. Patient states the pain is slowly progressive over 2-3 weeks, pain was Nonspecific nonradiating but only on the left side on both chest and abdomen, the pain it self got worse with movement , and when pt was lying on one side. No associated nausea vomiting, no change in bowel or urine habits. pain was 7/10 in severity, however it came down to 3/10, and it was improving. we consulted surgeon who recommended CT of contrast, pt initially rejected to do contrast for risk of nephrotoxicity , however he agreed after the surgeon also recommended it. risks , including but not limited to risk of nephrotoxicity , benefits and alternative are explained for the pt and he verbalized understanding and acceptance. i also contacted the radioliologist who reviewed the case with me and he recommended benefits are more than risks to do the new CT with iv contrast. the CT of abd/Pelvis is reviewed in detail with the surgeon , it is very unlikely for the spleenic cyst to cause pt s/s. pain medication is provided for the pt upon discharge he was improving, he wanted to be discharged home and he agrees to do the follow up. pt also states he is aware of his spinal stenosis and back pain problem and that he is going to f/u with the orthopedic and contact info is provided for him as ravindra. he was cleared for discharge by all consultants, problems and management plan was discussed with the pt and he verbalized understanding and acceptance. pt is found stable and could be discharged however he needs follow up as outpt. he agrees with appointmetn that was made with his pcp. Discharge exam Gen.: Patient alert awake and oriented X 3, NOT IN DISTRESS CVS: s1-s2, RRR, no murmur CHEST:bilateral CTA, no wheezing or crepitation Abdomen: Soft, no tenderness, no distention, positive bowel sounds Extremities: No leg edema or induration time spent : more than 35 min Patient Condition at Discharge: Stable Plan - Discharge Summary Discharge Rx Participant: No New Discharge Prescriptions: New Acetaminophen Tab [Tylenol] 650 mg PO Q6HR PRN #50 tab PRN Reason: Fever And/ Or Pain Lidocaine 5% Patch [Lidoderm 5% Patch] 1 patch TOPICAL DAILY #30 patch Continue Lisinopril [Zestril] 5 mg PO BID #180 tab Metoprolol Tartrate [Lopressor] 50 mg PO BID #180 tab Nitroglycerin Sl Tabs [Nitrostat] 0.4 mg SUBLINGUAL Q5M PRN #25 tab PRN Reason: Chest Pain Spironolactone [Aldactone] 25 mg PO DAILY #90 tab Aspirin 81 mg PO HS Atorvastatin [Lipitor] 40 mg PO HS Discharge Medication List Lisinopril [Zestril] 5 mg PO BID #180 tab 05/22/14 [Rx] Metoprolol Tartrate [Lopressor] 50 mg PO BID #180 tab 05/22/14 [Rx] Nitroglycerin Sl Tabs [Nitrostat] 0.4 mg SUBLINGUAL Q5M PRN #25 tab 05/22/14 [Rx ] Spironolactone [Aldactone] 25 mg PO DAILY #90 tab 05/22/14 [Rx] Aspirin 81 mg PO HS 03/11/15 [History] Atorvastatin [Lipitor] 40 mg PO HS 06/06/17 [History] Acetaminophen Tab [Tylenol] 650 mg PO Q6HR PRN #50 tab 07/20/18 [Rx] Lidocaine 5% Patch [Lidoderm 5% Patch] 1 patch TOPICAL DAILY #30 patch 07/20/18 [Rx] Follow up Appointment(s)/Referral(s): Travon Larios MD [Primary Care Provider] - 07/26/18 9:30 am Angelina Alford MD [STAFF PHYSICIAN] - 2 Weeks ([employer] Custodian) Dick Martin DO [Doctor of Osteopathic Medicine] - 1 Week (spinal stenosis) Activity/Diet/Wound Care/Special Instructions: cardiac diet activity is limited till you see your doctor avoid NSAIDS, like abuprofbrynn gregorio ponstan Discharge Disposition: HOME SELF-CARE
== END 2018-07-20 17:30 | disposition home or self-care (01) ==
LOC: EC 04:00 → 1SOBS 08:26
PROVIDERS: ADMIT Hospitalist; ATTEND Hospitalist
DX: R07.89 Other chest pain (principal); R10.9 Unspecified abdominal pain; R11.0 Nausea; R20.0 Anesthesia of skin; R61 Generalized hyperhidrosis; K57.30 Diverticulosis of large intestine without perforation or abscess without bleeding; I11.0 Hypertensive heart disease with heart failure; I50.22 Chronic systolic (congestive) heart failure; I25.10 Atherosclerotic heart disease of native coronary artery without angina pectoris; E78.5 Hyperlipidemia, unspecified; N40.0 Benign prostatic hyperplasia without lower urinary tract symptoms; I25.5 Ischemic cardiomyopathy; I08.3 Combined rheumatic disorders of mitral, aortic and tricuspid valves; I71.9 Aortic aneurysm of unspecified site, without rupture; M48.061 Spinal stenosis, lumbar region without neurogenic claudication; E66.9 Obesity, unspecified; Z68.30 Body mass index [BMI] 30.0-30.9, adult; Z79.82 Long term (current) use of aspirin; Z79.899 Other long term (current) drug therapy; I25.2 Old myocardial infarction; Z95.5 Presence of coronary angioplasty implant and graft; Z82.49 Family history of ischemic heart disease and other diseases of the circulatory system
CPT/HCPCS: 99285; 36415; 93005; 85379; 80061; 80053; 80048; 85652; 82550; 82553; 83735; 84484; 85025; 85610; 85730; 86140; 81003; 71046; 71275; 74177; G0378 ×2; C8929; Q9950; Q9967 ×2; 93306

== ENCOUNTER → 2018-09-26 | Outpatient (CLI) | payer MEDICARE, BC ==
[2018-09-26 18:23] LABS: Albumin 3.9 g/dL (3.80-4.90); Albumin/Globulin Ratio 1.95 (1.60-3.17); Anion Gap 10.7 mmol/L (4.00-12.00); Calcium 9.3 mg/dL (8.7-10.3); Carbon Dioxide 22.3 mmol/L (21.6-31.8); LDL Cholesterol,Calculated 50.6 mg/dL (0.0-131.0); Potassium 4.7 mmol/L (3.5-5.5); Total Bilirubin 0.6 mg/dL (0.2-1.2); Total Protein 5.9 g/dL (6.2-8.2); VLDL Calculation 12.4 mg/dL (5.00-40.00)
== END ==
LOC: LABWHC1 11:19
PROVIDERS: ATTEND Internal Medicine Interventional Cardiology
DX: E78.2 Mixed hyperlipidemia (principal)
CPT/HCPCS: 36415; 80053; 80061

== ENCOUNTER → 2019-04-05 | Outpatient (CLI) | payer MEDICARE, BC ==
[2019-04-05 17:19] LABS: Chol/HDL Ratio 2.9; LDL Cholesterol,Calculated 45.6 mg/dL (0.0-131.0); VLDL Calculation 13.4 mg/dL (5.00-40.00)
== END | disposition home or self-care (01) ==
LOC: LABWHC1 11:15
PROVIDERS: ATTEND Nurse Practitioner Adult Health
DX: E78.2 Mixed hyperlipidemia (principal)
CPT/HCPCS: 36415; 80061; 84450; 84460

== ENCOUNTER → 2019-06-12 | Outpatient (CLI) | payer MEDICARE, BC ==
--- NOTE | 2019-06-12 14:03 | MR ---
EXAMINATION TYPE: MR lumbar spine wo/w con DATE OF EXAM: 06/12/2019 COMPARISON: CT abdomen and pelvis July 20, 2018. HISTORY: Spinal stenosis TECHNIQUE: Multiplanar, multisequence images of the lumbar spine is performed without and with IV contrast, util izing 10 mL intravenous Gadavist FINDINGS: Sagittal images of the lumbar spine show vertebral body heights to remain satisfactory. Spi ne is straightened on sagittal images. There is dextro convex scoliotic curvature centered near lumbo sacral junction redemonstrated. Multilevel disc desiccation and disc space narrowing more prominent L 2-L3 and L5-S1 levels. Moderate 2 severe multilevel anterior spurring is redemonstrated. The bone mar row signal intensity is overall heterogeneous with some endplate Modic type II changes L3-L4 level. N o suspicious enhancement. Hemangioma noted involving L1 vertebra sagittal image 5. Axial images at T12-L1 level shows mild/moderate broad-based disc bulge effacing the anterior thecal sac with mild facet degenerative changes and ligamentum flavum hypertrophy effacing right posterior l ateral thecal sac. Bilateral neural foramina are patent. Axial images L1-L2 level show moderate broad disc bulge effacing the anterior thecal sac with moderat e facet degenerative changes and ligament hypertrophy effacing posterior lateral thecal sac. Diminish ed AP diameter spinal canal. [id number] left-sided anterior inferior neural foraminal narrowing . Axial images at the L2-L3 level show moderate to advanced broad disc bulge and moderate to advanced f acet degenerative changes and ligamentum flavum hypertrophy effacing the anterior and posterior later al thecal sac on axial image 17 with [id number] bilateral anterior inferior neural foraminal na rrowing. Axial images at L3-L4 level show severe facet arthropathy and ligament flavum hypertrophy effacing la teral thecal sac axial image 13 with advanced broad disc bulge effacing the anterior thecal sac. Spin al canal stenosis thought present. Moderate to severe bilateral neural foraminal narrowing encroachin g on both L3 nerves most prominent on the left sagittal image 7. Axial images at L4-L5 level show advanced facet arthropathy and ligament flavum hypertrophy effacing posterior lateral thecal sac axial image 7 with advanced broad disc bulge effacing anterior thecal sa c. There is advanced left sided neural foraminal narrowing. Right-sided neural foramina is patent wit h inferior positioning of the exiting right L4 nerve noted on sagittal images. Axial images at L5-S1 level show moderate to advanced facet degenerative changes. There is moderate b road disc bulge. Spinal canal is preserved. There is moderate left-sided neural foraminal narrowing. Right-sided neural foramen is patent. No suspicious incidental retroperitoneal finding. IMPRESSION: Multilevel fairly advanced degenerative changes with most prominent spinal canal stenosis noted L3-L4 level as detailed above.
== END | disposition home or self-care (01) ==
LOC: RADMRIMAIN 12:37
PROVIDERS: ATTEND Family Medicine
DX: M48.061 Spinal stenosis, lumbar region without neurogenic claudication (principal); M47.816 Spondylosis without myelopathy or radiculopathy, lumbar region
CPT/HCPCS: 72158; A9585

== ENCOUNTER → 2019-08-27 | Outpatient (CLI) | payer MEDICARE, BC ==
--- NOTE | 2019-08-27 23:28 | MR ---
EXAMINATION TYPE: MR cspine/tspine wo con DATE OF EXAM: 08/27/2019 COMPARISON: None HISTORY: Stenosis of thoracic and cervical spine Multiplanar multiecho imaging of the cervical and thoracic spine was performed without contrast. There is apparent old anterior fusion surgery at C4-5. There is posterior endplate spur formation and disc herniation at C3-4 and C5-6 with narrowing of the spinal canal. There is flattening of the cerv ical spinal cord and the spinal canal is 3 mm at C3-4. Canal measures 5 mm at C5-6. There is very mi nimal edema in the cord at C3-4. The brainstem is intact. There is no compression fracture. There is hypertrophic multilevel facet arthropathy. There is no cervical paraspinal mass. Thoracic vertebra have normal alignment. Disc spaces are fairly normal. There is no compression fract ure. There is posterior endplate spur formation at T10-11 with narrowing of the spinal canal. There i s small disc herniation and endplate spur formation at T12-L1. Thoracic spinal cord shows no evidence of a mass. There is no thoracic compression fracture. Posterior elements are intact. There is no tho racic paraspinal mass. There is no focal bone destruction. IMPRESSION: There is very severe cervical spinal stenosis due to posterior disc herniation and spur formation at C3-4. There is moderately severe spinal stenosis at C5-6 due to disc herniation and posterior spur formatio n. Mild posterior disc herniations at T10-11 and T12-L1 with a mild relative spinal stenosis. No fracture seen.
== END | disposition home or self-care (01) ==
LOC: RADMRIMAIN 10:23
PROVIDERS: ATTEND Neurological Surgery
DX: M48.02 Spinal stenosis, cervical region (principal); M48.04 Spinal stenosis, thoracic region; M48.05 Spinal stenosis, thoracolumbar region; M50.21 Other cervical disc displacement, high cervical region; M51.24 Other intervertebral disc displacement, thoracic region; M51.25 Other intervertebral disc displacement, thoracolumbar region
CPT/HCPCS: 72141; 72146

== ENCOUNTER 2020-02-07 09:59 | Emergency (ER) | payer MEDICARE, BC ==
[2020-02-07 10:11] VITALS: RESP 18; TEMP 98.7
[2020-02-07] MEDS ORDERED: ASPIRIN 81 MG PO STA (10:40)
[2020-02-07] MEDS ORDERED: NITROGLYCERIN OINT 1 INCH/GM PACKET TOPICAL STA (10:40)
--- NOTE | 2020-02-07 10:43 | ED ---
General Adult HPI - General Chief complaint: Arrhythmia/Palpitations Stated complaint: rapid heart/SOB/cough Time Seen by Provider: 02/07/20 10:00 Source: patient, family, RN notes reviewed, old records reviewed Mode of arrival: wheelchair Limitations: no limitations - History of Present Illness Initial comments: This is an 84-year-old male who presents emergency Department complaining of multiple complaints. Patient states yesterday he exerted himself which she doesn't a daily basis and he became very short of breath and had some chest pressure. Patient states when he rests it dissipated. Patient states this morning an episode of a rapid heart rate greater than 100 beats a minute for about 20 minutes and then subsided. Patient also states since beginning of October is a very bad dry cough and he has had no fevers and only minimal sputum production. Patient currently denies any chest pain or shortness of breath while in bed. Patient denies any increase in swelling of the legs even though he always has some swelling the right is always greater than the left. Patient denies any lightheadedness dizziness. Patient denies any headache patient denies numbness weakness. - Related Data Home Medications Medication Instructions Recorded Confirmed Aspirin 81 mg PO HS 03/11/15 07/19/18 Atorvastatin [Lipitor] 40 mg PO HS 06/06/17 07/19/18 Previous Rx's Medication Instructions Recorded Lisinopril [Zestril] 5 mg PO BID #180 tab 05/22/14 Metoprolol Tartrate [Lopressor] 50 mg PO BID #180 tab 05/22/14 Nitroglycerin Sl Tabs [Nitrostat] 0.4 mg SUBLINGUAL Q5M PRN #25 tab 05/22/14 Spironolactone [Aldactone] 25 mg PO DAILY #90 tab 05/22/14 Acetaminophen Tab [Tylenol] 650 mg PO Q6HR PRN #50 tab 07/20/18 Lidocaine 5% Patch [Lidoderm 5% 1 patch TOPICAL DAILY #30 patch 07/20/18 Patch] Allergies Allergy/AdvReac Type Severity Reaction Status Date / Time No Known Allergies Allergy Verified 02/07/20 10:07 Review of Systems ROS Statement: Those systems with pertinent positive or pertinent negative responses have been documented in the HPI. ROS Other: All systems not noted in ROS Statement are negative. 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 Last Myocardial Infarction Date:: 05/18/2014 History of Any Multi-Drug Resistant Organisms: None Reported Past Surgical History: Heart Catheterization, Heart Catheterization With Stent Additional Past Surgical History / Comment(s): HEART CATH WITH 3 STENTS 05/18/14 (2 stents to LAD) and 06/03/14 (1 stent to obtuse marginal), cardiac cath 2014, colonoscopy-normal Past Anesthesia/Blood Transfusion Reactions: No Reported Reaction Additional Past Anesthesia/Blood Transfusion Reaction / Comment(s): Pt states he has never had general anesthesia. He also has never recieved blood. Date of Last Stent Placement:: 06/03/14 Past Psychological History: No Psychological Hx Reported Smoking Status: Never smoker Past Alcohol Use History: None Reported Past Drug Use History: None Reported - Past Family History Father Family Medical History: No Reported History Additional Family Medical History / Comment(s): Father in his 80's. Mother Family Medical History: Coronary Artery Disease (CAD) Additional Family Medical History / Comment(s): Mother at age 63yrs and pt believes it may have been due to a heart problem. General Exam - General Exam Comments Initial Comments: GENERAL: Patient is well-developed and well-nourished. Patient is nontoxic and well- hydrated and is in mild distress. ENT: Neck is soft and supple. No significant lymphadenopathy is noted. Oropharynx is clear. Moist mucous membranes. Neck has full range of motion without eliciting any pain. EYES: The sclera were anicteric and conjunctiva were pink and moist. Extraocular movements were intact and pupils were equal round and reactive to light. Eyelids were unremarkable. PULMONARY: Unlabored respirations. Good breath sounds bilaterally. No audible rales rhonchi or wheezing was noted. CARDIOVASCULAR: There is a regular rate and rhythm without any murmurs gallops or rubs. ABDOMEN: Soft and nontender with normal bowel sounds. SKIN: Skin is clear with no lesions or rashes and otherwise unremarkable. NEUROLOGIC: Patient is alert and oriented x3. Cranial nerves II through XII are grossly intact. Motor and sensory are also intact. Normal speech, volume and content. Symmetrical smile. MUSCULOSKELETAL: Normal extremities with adequate strength and full range of motion. 2+ left smaller than right LYMPHATICS: No significant lymphadenopathy is noted PSYCHIATRIC: Normal psychiatric evaluation. Limitations: no limitations Course Vital Signs 02/07/20 02/07/20 02/07/20 10:07 11:02 12:00 Temperature 98.7 F Pulse Rate 64 60 58 L Respiratory 18 18 18 Rate Blood Pressure 139/73 117/59 126/101 O2 Sat by Pulse 98 98 98 Oximetry Medical Decision Making - Medical Decision Making EKG shows sinus rhythm at a rate of 65 bpm TX interval is 240 QRS is under 10 Q- T intervals 400 QTC is 416. Patient's EKG shows no ST segment elevation or depression. Chest x-ray shows no acute abnormality. I spoke with the patient and his daughter. I indicated to the patient I think he should stay because of the palpitations as well as the chest pain he had while working out yesterday but after thinking about it he decided to follow-up as an outpatient and did not want to stay. - Lab Data Result diagrams: 02/07/20 10:55 02/07/20 10:55 Lab Results 02/07/20 02/07/20 02/07/20 Range/Units 10:55 10:55 10:55 WBC 8.3 (3.8-10.6) k/uL RBC 4.64 (4.30-5.90) m/uL Hgb 13.8 (13.0-17.5) gm/dL Hct 43.2 (39.0-53.0) % MCV 93.2 (80.0-100.0) fL MCH 29.8 (25.0-35.0) pg MCHC 32.0 (31.0-37.0) g/dL RDW 12.7 (11.5-15.5) % Plt Count 214 (150-450) k/uL Neutrophils % 66 % Lymphocytes % 21 % Monocytes % 7 % Eosinophils % 4 % Basophils % 1 % Neutrophils # 5.4 (1.3-7.7) k/uL Lymphocytes # 1.7 (1.0-4.8) k/uL Monocytes # 0.5 (0-1.0) k/uL Eosinophils # 0.3 (0-0.7) k/uL Basophils # 0.1 (0-0.2) k/uL PT 10.3 (9.0-12.0) sec INR 1.0 (<1.2) APTT 23.7 (22.0-30.0) sec D-Dimer 0.68 H (<0.60) mg/L FEU Sodium 139 (137-145) mmol/L Potassium 5.1 (3.5-5.1) mmol/L Chloride 108 H (98-107) mmol/L Carbon Dioxide 23 (22-30) mmol/L Anion Gap 8 mmol/L BUN 30 H (9-20) mg/dL Creatinine 1.10 (0.66-1.25) mg/dL Est GFR (CKD-EPI)AfAm 70 (>60 ml/min/1.73 sqM) Est GFR (CKD-EPI)NonAf 61 (>60 ml/min/1.73 sqM) Glucose 120 H (74-99) mg/dL Calcium 9.5 (8.4-10.2) mg/dL Magnesium 1.9 (1.6-2.3) mg/dL Total Bilirubin 0.5 (0.2-1.3) mg/dL AST 30 (17-59) U/L ALT 36 (4-49) U/L Alkaline Phosphatase 70 (38-126) U/L Troponin I (0.000-0.034) ng/mL NT-Pro-B Natriuret Pep pg/mL Total Protein 6.6 (6.3-8.2) g/dL Albumin 3.7 (3.5-5.0) g/dL 02/07/20 02/07/20 Range/Units 10:55 10:55 WBC (3.8-10.6) k/uL RBC (4.30-5.90) m/uL Hgb (13.0-17.5) gm/dL Hct (39.0-53.0) % MCV (80.0-100.0) fL MCH (25.0-35.0) pg MCHC (31.0-37.0) g/dL RDW (11.5-15.5) % Plt Count (150-450) k/uL Neutrophils % % Lymphocytes % % Monocytes % % Eosinophils % % Basophils % % Neutrophils # (1.3-7.7) k/uL Lymphocytes # (1.0-4.8) k/uL Monocytes # (0-1.0) k/uL Eosinophils # (0-0.7) k/uL Basophils # (0-0.2) k/uL PT (9.0-12.0) sec INR (<1.2) APTT (22.0-30.0) sec D-Dimer (<0.60) mg/L FEU Sodium (137-145) mmol/L Potassium (3.5-5.1) mmol/L Chloride (98-107) mmol/L Carbon Dioxide (22-30) mmol/L Anion Gap mmol/L BUN (9-20) mg/dL Creatinine (0.66-1.25) mg/dL Est GFR (CKD-EPI)AfAm (>60 ml/min/1.73 sqM) Est GFR (CKD-EPI)NonAf (>60 ml/min/1.73 sqM) Glucose (74-99) mg/dL Calcium (8.4-10.2) mg/dL Magnesium (1.6-2.3) mg/dL Total Bilirubin (0.2-1.3) mg/dL AST (17-59) U/L ALT (4-49) U/L Alkaline Phosphatase (38-126) U/L Troponin I <0.012 (0.000-0.034) ng/mL NT-Pro-B Natriuret Pep 237 pg/mL Total Protein (6.3-8.2) g/dL Albumin (3.5-5.0) g/dL Disposition Clinical Impression: Chest pain, Palpitations, Chronic cough Disposition: HOME SELF-CARE Instructions (If sedation given, give patient instructions): Heart Palpitations (ED), Chronic Cough (ED) Is patient prescribed a controlled substance at d/c from ED?: No Referrals: Travon Larios MD [Primary Care Provider] - 1-2 days Time of Disposition: 12:31
[2020-02-07 11:03] LABS: Basophils # (A) 0.1 k/uL (0-0.2); Basophils % (A) 1 %; Eosinophils # (A) 0.3 k/uL (0-0.7); Eosinophils % (A) 4 %; HCT 43.2 % (39.0-53.0); HGB 13.8 gm/dL (13.0-17.5); Lymphocytes # (A) 1.7 k/uL (1.0-4.8); Lymphocytes % (A) 21 %; MCH 29.8 pg (25.0-35.0); MCV 93.2 fL (80.0-100.0); Mean Platelet Volume 7.8; Monocytes # (A) 0.5 k/uL (0-1.0); Monocytes % (A) 7 %; Neutrophils # (A) 5.4 k/uL (1.3-7.7); Neutrophils % (A) 66 %; Platelet Count 214 k/uL (150-450); RBC 4.64 m/uL (4.30-5.90); RDW 12.7 % (11.5-15.5); WBC 8.3 k/uL (3.8-10.6)
[2020-02-07 11:16] LABS: Partial Thromboplastin Time 23.7 sec (22.0-30.0); Prothrombin Time 10.3 sec (9.0-12.0)
[2020-02-07 11:17] LABS: Albumin 3.7 g/dL (3.5-5.0); Calcium 9.5 mg/dL (8.4-10.2); Magnesium 1.9 mg/dL (1.6-2.3); Potassium 5.1 mmol/L (3.5-5.1); Total Bilirubin 0.5 mg/dL (0.2-1.3); Total Protein 6.6 g/dL (6.3-8.2)
[2020-02-07 11:22] LABS: D-Dimer 0.68 mg/L FEU (<0.60)
--- NOTE | 2020-02-07 11:25 | XR ---
EXAMINATION TYPE: XR chest 2V DATE OF EXAM: 02/07/2020 COMPARISON: 07/19/2018 INDICATION: Chest pain, cough x4 days TECHNIQUE: Frontal and lateral views of the chest are obtained. FINDINGS: The heart size is normal. The pulmonary vasculature is normal. The lungs are clear. IMPRESSION: 1. No acute pulmonary process.
[2020-02-07 12:54] VITALS: BP 115/60; PULSE 72
== END 2020-02-07 12:50 | disposition home or self-care (01) ==
LOC: EC 09:59
DX: R00.2 Palpitations (principal); R05 Cough; R07.9 Chest pain, unspecified; R06.02 Shortness of breath; I10 Essential (primary) hypertension; I25.2 Old myocardial infarction; Z79.82 Long term (current) use of aspirin; Z79.899 Other long term (current) drug therapy; Z95.5 Presence of coronary angioplasty implant and graft
CPT/HCPCS: 36415; 71046; 80053; 83735; 83880; 84484; 85025; 85379; 85610; 85730; 93005; 99285

== ENCOUNTER 2021-03-20 04:59 | Inpatient (IN) | payer MEDICARE, BC ==
[2021-03-20] MEDS ORDERED: SODIUM CHLORIDE 0.9% 1,000 ML IV STA (05:01)
[2021-03-20] MEDS ORDERED: SODIUM CHLORIDE 0.9% 500 ML 500 ML IV STA (05:01)
--- NOTE | 2021-03-20 05:04 | ED ---
Weakness HPI - General Stated complaint: Dizziness Time Seen by Provider: 03/20/21 05:01 Source: RN notes reviewed, old records reviewed Limitations: no limitations - History of Present Illness Initial comments: This is an 85-year-old male who presents today for evaluation regards to severe episode of dizziness lightheadedness diaphoresis shortness of breath and felt like his heart was racing. Patient like he may pass out. Symptoms are still going on here in the ER although improving. He has no travel history no sick contacts no fevers currently no chest pain or shortness of breath he still rohan ins nauseous with vomiting and symptoms that he may pass out. Feels very dizzy lightheaded and continually puking. Patient does have history of heart disease MD Complaint: generalized weakness, lack of energy -: days(s) Location: generalized Severity: moderate Severity scale (1-10): 4 Quality: tingling, aching Consistency: constant Improves with: none Worsens with: none Context: recent illness Associated Symptoms: loss of appetite, nausea/vomiting - Related Data Home Medications Medication Instructions Recorded Confirmed Atorvastatin [Lipitor] 40 mg PO HS 06/06/17 03/20/21 Fluticasone Nasal [place] [Flonase 2 spr EA NOSTRIL DAILY 03/20/21 03/20/21 Nasal [place]] Losartan Potassium [Cozaar] 25 mg PO BID 03/20/21 03/20/21 Previous Rx's Medication Instructions Recorded Metoprolol Tartrate [Lopressor] 50 mg PO BID #180 tab 05/22/14 Nitroglycerin Sl Tabs [Nitrostat] 0.4 mg SUBLINGUAL Q5M PRN #25 tab 05/22/14 Spironolactone [Aldactone] 25 mg PO DAILY #90 tab 05/22/14 Amoxicillin/Potassium Clav 1 tab PO BID 5 Days #10 tab 03/23/21 [Augmentin 875-125 Tablet] Allergies Allergy/AdvReac Type Severity Reaction Status Date / Time No Known Allergies Allergy Verified 03/20/21 09:54 Review of Systems ROS Statement: Those systems with pertinent positive or pertinent negative responses have been documented in the HPI. ROS Other: All systems not noted in ROS Statement are negative. Past Medical History Past Medical History: Hypertension, Myocardial Infarction (AK) Additional Past Medical History / Comment(s): Anterior wall [place] 05/18/14, ischemic cardiomyopathy, spinal stenosis, numbness to bilateral legs and feet, BPH, pt denies hyperlipidemia-takes lipitor. Last Myocardial Infarction Date:: 05/18/2014 History of Any Multi-Drug Resistant Organisms: None Reported Past Surgical History: Heart Catheterization, Heart Catheterization With Stent Additional Past Surgical History / Comment(s): HEART CATH WITH 3 STENTS 05/18/14 (2 stents to LAD) and 06/03/14 (1 stent to obtuse marginal), cardiac cath 2014, colonoscopy-normal Past Anesthesia/Blood Transfusion Reactions: No Reported Reaction Additional Past Anesthesia/Blood Transfusion Reaction / Comment(s): Pt states he has never had general anesthesia. He also has never recieved blood. Date of Last Stent Placement:: 06/03/14 Past Psychological History: No Psychological Hx Reported Past Alcohol Use History: None Reported Past Drug Use History: None Reported - Past Family History Father Family Medical History: No Reported History Additional Family Medical History / Comment(s): Father in his 80's. Mother Family Medical History: Coronary Artery Disease (CAD) Additional Family Medical History / Comment(s): Mother at age 63yrs and pt believes it may have been due to a heart problem. General Exam General appearance: alert, in no apparent distress Head exam: Present: atraumatic, normocephalic, normal inspection Eye exam: Present: normal appearance, PERRL, EOMI. Absent: scleral icterus, conjunctival injection, periorbital swelling ENT exam: Present: normal exam, mucous membranes moist Neck exam: Present: normal inspection. Absent: tenderness, meningismus, ly mphadenopathy Respiratory exam: Present: normal lung sounds bilaterally. Absent: respiratory distress, wheezes, rales, rhonchi, stridor Cardiovascular Exam: Present: regular rate, normal rhythm, normal heart sounds. Absent: systolic murmur, diastolic murmur, rubs, gallop, clicks GI/Abdominal exam: Present: soft, normal bowel sounds. Absent: distended, tenderness, guarding, rebound, rigid Extremities exam: Present: normal inspection, full ROM, normal capillary refill. Absent: tenderness, pedal edema, joint swelling, calf tenderness Back exam: Present: normal inspection Neurological exam: Present: alert, oriented X3, CN II-XII intact Psychiatric exam: Present: normal affect, normal mood Skin exam: Present: warm, dry, intact, normal color. Absent: rash Course Vital Signs 03/20/21 03/20/21 03/20/21 05:05 06:53 07:00 Temperature 97.6 F 96.1 F L Pulse Rate 99 108 H Pulse Rate [ 103 H Right] Respiratory 20 18 17 Rate Blood Pressure 136/77 150/82 Blood Pressure 157/82 [Right Arm] O2 Sat by Pulse 97 97 97 Oximetry - Reevaluation(s) Reevaluation #1: 03/20/21 05:32 medical record is reviewed Reevaluation #2: 03/20/21 06:41 Has no improvement in symptoms here in the ER Reevaluation #3: Patient informed of results and questions answered Patient is in no acute distress Medical Decision Making - Medical Decision Making 85 male to the ER with weakness and heart racing. Patient is found to have significant dehydration persistent symptoms of vertigo and dizziness, patient does not fill comfortable on a single be admitted for resuscitation - Lab Data Result diagrams: 03/23/21 08:17 03/23/21 08:17 Lab Results 03/20/21 03/20/21 03/20/21 Range/Units 05:13 05:13 05:13 WBC 9.7 (3.8-10.6) k/uL RBC 4.13 L (4.30-5.90) m/uL Hgb 13.2 (13.0-17.5) gm/dL Hct 39.9 (39.0-53.0) % MCV 96.6 (80.0-100.0) fL MCH 31.9 (25.0-35.0) pg MCHC 33.0 (31.0-37.0) g/dL RDW 13.1 (11.5-15.5) % Plt Count 232 (150-450) k/uL MPV 8.3 Neutrophils % 49 % Lymphocytes % 37 % Monocytes % 7 % Eosinophils % 3 % Basophils % 1 % Neutrophils # 4.7 (1.3-7.7) k/uL Lymphocytes # 3.6 (1.0-4.8) k/uL Monocytes # 0.7 (0-1.0) k/uL Eosinophils # 0.3 (0-0.7) k/uL Basophils # 0.1 (0-0.2) k/uL Hypochromasia PT 10.7 (9.0-12.0) sec INR 1.0 (<1.2) APTT 20.3 L (22.0-30.0) sec Sodium (137-145) mmol/L Potassium (3.5-5.1) mmol/L Chloride (98-107) mmol/L Carbon Dioxide (22-30) mmol/L Anion Gap mmol/L BUN (9-20) mg/dL Creatinine (0.66-1.25) mg/dL Est GFR (CKD-EPI)AfAm (>60 ml/min/1.73 sqM) Est GFR (CKD-EPI)NonAf (>60 ml/min/1.73 sqM) Glucose (74-99) mg/dL Lactic Ac Sepsis Rflx Plasma Lactic Acid Geraldo (0.7-2.0) mmol/L Calcium (8.4-10.2) mg/dL Phosphorus (2.5-4.5) mg/dL Magnesium (1.6-2.3) mg/dL Total Bilirubin (0.2-1.3) mg/dL AST (17-59) U/L ALT (4-49) U/L Alkaline Phosphatase (38-126) U/L Creatine Kinase (55-170) U/L Troponin I (0.000-0.034) ng/mL Total Protein (6.3-8.2) g/dL Albumin (3.5-5.0) g/dL TSH (0.465-4.680) mIU/L Free T4 (0.78-2.19) ng/dL Urine Color Light Yellow Urine Appearance Clear (Clear) Urine pH 5.5 (5.0-8.0) Ur Specific [place] 1.012 (1.001-1.035) Urine Protein Negative (Negative) Urine Glucose (UA) 3+ H (Negative) Urine Ketones 1+ H (Negative) Urine Blood Negative (Negative) Urine Nitrite Negative (Negative) Urine Bilirubin Negative (Negative) Urine Urobilinogen <2.0 (<2.0) mg/dL Ur Leukocyte Esterase Negative (Negative) 03/20/21 03/20/21 03/20/21 Range/Units 05:13 05:13 05:13 WBC (3.8-10.6) k/uL RBC (4.30-5.90) m/uL Hgb (13.0-17.5) gm/dL Hct (39.0-53.0) % MCV (80.0-100.0) fL MCH (25.0-35.0) pg MCHC (31.0-37.0) g/dL RDW (11.5-15.5) % Plt Count (150-450) k/uL MPV Neutrophils % % Lymphocytes % % Monocytes % % Eosinophils % % Basophils % % Neutrophils # (1.3-7.7) k/uL Lymphocytes # (1.0-4.8) k/uL Monocytes # (0-1.0) k/uL Eosinophils # (0-0.7) k/uL Basophils # (0-0.2) k/uL Hypochromasia PT (9.0-12.0) sec INR (<1.2) APTT (22.0-30.0) sec Sodium 140 (137-145) mmol/L Potassium 3.4 L (3.5-5.1) mmol/L Chloride 111 H (98-107) mmol/L Carbon Dioxide 17 L (22-30) mmol/L Anion Gap 12 mmol/L BUN 27 H (9-20) mg/dL Creatinine 0.95 (0.66-1.25) mg/dL Est GFR (CKD-EPI)AfAm 83 (>60 ml/min/1.73 sqM) Est GFR (CKD-EPI)NonAf 72 (>60 ml/min/1.73 sqM) Glucose 207 H (74-99) mg/dL Lactic Ac Sepsis Rflx Plasma Lactic Acid Geraldo 4.3 H* (0.7-2.0) mmol/L Calcium 9.1 (8.4-10.2) mg/dL Phosphorus 3.0 (2.5-4.5) mg/dL Magnesium 1.7 (1.6-2.3) mg/dL Total Bilirubin 0.3 (0.2-1.3) mg/dL AST 37 (17-59) U/L ALT 42 (4-49) U/L Alkaline Phosphatase 70 (38-126) U/L Creatine Kinase 37 L (55-170) U/L Troponin I <0.012 (0.000-0.034) ng/mL Total Protein 5.9 L (6.3-8.2) g/dL Albumin 3.3 L (3.5-5.0) g/dL TSH (0.465-4.680) mIU/L Free T4 (0.78-2.19) ng/dL Urine Color Urine Appearance (Clear) Urine pH (5.0-8.0) Ur Specific [place] (1.001-1.035) Urine Protein (Negative) Urine Glucose (UA) (Negative) Urine Ketones (Negative) Urine Blood (Negative) Urine Nitrite (Negative) Urine Bilirubin (Negative) Urine Urobilinogen (<2.0) mg/dL Ur Leukocyte Esterase (Negative) 03/20/21 03/20/21 03/20/21 Range/Units 07:54 08:05 08:05 WBC (3.8-10.6) k/uL RBC (4.30-5.90) m/uL Hgb (13.0-17.5) gm/dL Hct (39.0-53.0) % MCV (80.0-100.0) fL MCH (25.0-35.0) pg MCHC (31.0-37.0) g/dL RDW (11.5-15.5) % Plt Count (150-450) k/uL MPV Neutrophils % % Lymphocytes % % Monocytes % % Eosinophils % % Basophils % % Neutrophils # (1.3-7.7) k/uL Lymphocytes # (1.0-4.8) k/uL Monocytes # (0-1.0) k/uL Eosinophils # (0-0.7) k/uL Basophils # (0-0.2) k/uL Hypochromasia PT (9.0-12.0) sec INR (<1.2) APTT (22.0-30.0) sec Sodium (137-145) mmol/L Potassium (3.5-5.1) mmol/L Chloride (98-107) mmol/L Carbon Dioxide (22-30) mmol/L Anion Gap mmol/L BUN (9-20) mg/dL Creatinine (0.66-1.25) mg/dL Est GFR (CKD-EPI)AfAm (>60 ml/min/1.73 sqM) Est GFR (CKD-EPI)NonAf (>60 ml/min/1.73 sqM) Glucose (74-99) mg/dL Lactic Ac Sepsis Rflx Y Plasma Lactic Acid Geraldo 6.1 H* (0.7-2.0) mmol/L Calcium (8.4-10.2) mg/dL Phosphorus (2.5-4.5) mg/dL Magnesium (1.6-2.3) mg/dL Total Bilirubin (0.2-1.3) mg/dL AST (17-59) U/L ALT (4-49) U/L Alkaline Phosphatase (38-126) U/L Creatine Kinase (55-170) U/L Troponin I <0.012 (0.000-0.034) ng/mL Total Protein (6.3-8.2) g/dL Albumin (3.5-5.0) g/dL TSH (0.465-4.680) mIU/L Free T4 (0.78-2.19) ng/dL Urine Color Urine Appearance (Clear) Urine pH (5.0-8.0) Ur Specific [place] (1.001-1.035) Urine Protein (Negative) Urine Glucose (UA) (Negative) Urine Ketones (Negative) Urine Blood (Negative) Urine Nitrite (Negative) Urine Bilirubin (Negative) Urine Urobilinogen (<2.0) mg/dL Ur Leukocyte Esterase (Negative) 03/20/21 03/20/21 03/20/21 Range/Units 09:03 11:58 11:58 WBC (3.8-10.6) k/uL RBC (4.30-5.90) m/uL Hgb (13.0-17.5) gm/dL Hct (39.0-53.0) % MCV (80.0-100.0) fL MCH (25.0-35.0) pg MCHC (31.0-37.0) g/dL RDW (11.5-15.5) % Plt Count (150-450) k/uL MPV Neutrophils % % Lymphocytes % % Monocytes % % Eosinophils % % Basophils % % Neutrophils # (1.3-7.7) k/uL Lymphocytes # (1.0-4.8) k/uL Monocytes # (0-1.0) k/uL Eosinophils # (0-0.7) k/uL Basophils # (0-0.2) k/uL Hypochromasia PT (9.0-12.0) sec INR (<1.2) APTT (22.0-30.0) sec Sodium (137-145) mmol/L Potassium (3.5-5.1) mmol/L Chloride (98-107) mmol/L Carbon Dioxide (22-30) mmol/L Anion Gap mmol/L BUN (9-20) mg/dL Creatinine (0.66-1.25) mg/dL Est GFR (CKD-EPI)AfAm (>60 ml/min/1.73 sqM) Est GFR (CKD-EPI)NonAf (>60 ml/min/1.73 sqM) Glucose (74-99) mg/dL Lactic Ac Sepsis Rflx Y Plasma Lactic Acid Geraldo 7.5 H* (0.7-2.0) mmol/L Calcium (8.4-10.2) mg/dL Phosphorus (2.5-4.5) mg/dL Magnesium (1.6-2.3) mg/dL Total Bilirubin (0.2-1.3) mg/dL AST (17-59) U/L ALT (4-49) U/L Alkaline Phosphatase (38-126) U/L Creatine Kinase (55-170) U/L Troponin I 0.069 H* (0.000-0.034) ng/mL Total Protein (6.3-8.2) g/dL Albumin (3.5-5.0) g/dL TSH (0.465-4.680) mIU/L Free T4 (0.78-2.19) ng/dL Urine Color Urine Appearance (Clear) Urine pH (5.0-8.0) Ur Specific [place] (1.001-1.035) Urine Protein (Negative) Urine Glucose (UA) (Negative) Urine Ketones (Negative) Urine Blood (Negative) Urine Nitrite (Negative) Urine Bilirubin (Negative) Urine Urobilinogen (<2.0) mg/dL Ur Leukocyte Esterase (Negative) 03/20/21 03/20/21 03/20/21 Range/Units 12:40 15:12 15:12 WBC 14.0 H (3.8-10.6) k/uL RBC 4.20 L (4.30-5.90) m/uL Hgb 13.4 (13.0-17.5) gm/dL Hct 41.0 (39.0-53.0) % MCV 97.6 (80.0-100.0) fL MCH 31.8 (25.0-35.0) pg MCHC 32.6 (31.0-37.0) g/dL RDW 13.0 (11.5-15.5) % Plt Count 205 (150-450) k/uL MPV 8.3 Neutrophils % % Lymphocytes % % Monocytes % % Eosinophils % % Basophils % % Neutrophils # (1.3-7.7) k/uL Lymphocytes # (1.0-4.8) k/uL Monocytes # (0-1.0) k/uL Eosinophils # (0-0.7) k/uL Basophils # (0-0.2) k/uL Hypochromasia Slight PT (9.0-12.0) sec INR (<1.2) APTT (22.0-30.0) sec Sodium 140 (137-145) mmol/L Potassium 4.3 (3.5-5.1) mmol/L Chloride 108 H (98-107) mmol/L Carbon Dioxide 16 L (22-30) mmol/L Anion Gap 16 mmol/L BUN 20 (9-20) mg/dL Creatinine 0.87 (0.66-1.25) mg/dL Est GFR (CKD-EPI)AfAm 90 (>60 ml/min/1.73 sqM) Est GFR (CKD-EPI)NonAf 78 (>60 ml/min/1.73 sqM) Glucose 138 H (74-99) mg/dL Lactic Ac Sepsis Rflx Y Plasma Lactic Acid Geraldo (0.7-2.0) mmol/L Calcium 8.4 (8.4-10.2) mg/dL Phosphorus (2.5-4.5) mg/dL Magnesium (1.6-2.3) mg/dL Total Bilirubin 0.2 (0.2-1.3) mg/dL AST 43 (17-59) U/L ALT 47 (4-49) U/L Alkaline Phosphatase 77 (38-126) U/L Creatine Kinase (55-170) U/L Troponin I (0.000-0.034) ng/mL Total Protein 6.1 L (6.3-8.2) g/dL Albumin 3.4 L (3.5-5.0) g/dL TSH (0.465-4.680) mIU/L Free T4 (0.78-2.19) ng/dL Urine Color Urine Appearance (Clear) Urine pH (5.0-8.0) Ur Specific [place] (1.001-1.035) Urine Protein (Negative) Urine Glucose (UA) (Negative) Urine Ketones (Negative) Urine Blood (Negative) Urine Nitrite (Negative) Urine Bilirubin (Negative) Urine Urobilinogen (<2.0) mg/dL Ur Leukocyte Esterase (Negative) 03/20/21 03/20/21 03/20/21 Range/Units 15:12 15:57 18:53 WBC (3.8-10.6) k/uL RBC (4.30-5.90) m/uL Hgb (13.0-17.5) gm/dL Hct (39.0-53.0) % MCV (80.0-100.0) fL MCH (25.0-35.0) pg MCHC (31.0-37.0) g/dL RDW (11.5-15.5) % Plt Count (150-450) k/uL MPV Neutrophils % % Lymphocytes % % Monocytes % % Eosinophils % % Basophils % % Neutrophils # (1.3-7.7) k/uL Lymphocytes # (1.0-4.8) k/uL Monocytes # (0-1.0) k/uL Eosinophils # (0-0.7) k/uL Basophils # (0-0.2) k/uL Hypochromasia PT (9.0-12.0) sec INR (<1.2) APTT (22.0-30.0) sec Sodium (137-145) mmol/L Potassium (3.5-5.1) mmol/L Chloride (98-107) mmol/L Carbon Dioxide (22-30) mmol/L Anion Gap mmol/L BUN (9-20) mg/dL Creatinine (0.66-1.25) mg/dL Est GFR (CKD-EPI)AfAm (>60 ml/min/1.73 sqM) Est GFR (CKD-EPI)NonAf (>60 ml/min/1.73 sqM) Glucose (74-99) mg/dL Lactic Ac Sepsis Rflx Y Plasma Lactic Acid Geraldo 6.8 H* 3.7 H* (0.7-2.0) mmol/L Calcium (8.4-10.2) mg/dL Phosphorus (2.5-4.5) mg/dL Magnesium (1.6-2.3) mg/dL Total Bilirubin (0.2-1.3) mg/dL AST (17-59) U/L ALT (4-49) U/L Alkaline Phosphatase (38-126) U/L Creatine Kinase (55-170) U/L Troponin I (0.000-0.034) ng/mL Total Protein (6.3-8.2) g/dL Albumin (3.5-5.0) g/dL TSH (0.465-4.680) mIU/L Free T4 (0.78-2.19) ng/dL Urine Color Urine Appearance (Clear) Urine pH (5.0-8.0) Ur Specific [place] (1.001-1.035) Urine Protein (Negative) Urine Glucose (UA) (Negative) Urine Ketones (Negative) Urine Blood (Negative) Urine Nitrite (Negative) Urine Bilirubin (Negative) Urine Urobilinogen (<2.0) mg/dL Ur Leukocyte Esterase (Negative) 03/20/21 03/20/21 03/20/21 Range/Units 19:47 22:19 22:44 WBC (3.8-10.6) k/uL RBC (4.30-5.90) m/uL Hgb (13.0-17.5) gm/dL Hct (39.0-53.0) % MCV (80.0-100.0) fL MCH (25.0-35.0) pg MCHC (31.0-37.0) g/dL RDW (11.5-15.5) % Plt Count (150-450) k/uL MPV Neutrophils % % Lymphocytes % % Monocytes % % Eosinophils % % Basophils % % Neutrophils # (1.3-7.7) k/uL Lymphocytes # (1.0-4.8) k/uL Monocytes # (0-1.0) k/uL Eosinophils # (0-0.7) k/uL Basophils # (0-0.2) k/uL Hypochromasia PT (9.0-12.0) sec INR (<1.2) APTT (22.0-30.0) sec Sodium (137-145) mmol/L Potassium (3.5-5.1) mmol/L Chloride (98-107) mmol/L Carbon Dioxide (22-30) mmol/L Anion Gap mmol/L BUN (9-20) mg/dL Creatinine (0.66-1.25) mg/dL Est GFR (CKD-EPI)AfAm (>60 ml/min/1.73 sqM) Est GFR (CKD-EPI)NonAf (>60 ml/min/1.73 sqM) Glucose (74-99) mg/dL Lactic Ac Sepsis Rflx Y Y Plasma Lactic Acid Geraldo 2.6 H* (0.7-2.0) mmol/L Calcium (8.4-10.2) mg/dL Phosphorus (2.5-4.5) mg/dL Magnesium (1.6-2.3) mg/dL Total Bilirubin (0.2-1.3) mg/dL AST (17-59) U/L ALT (4-49) U/L Alkaline Phosphatase (38-126) U/L Creatine Kinase (55-170) U/L Troponin I (0.000-0.034) ng/mL Total Protein (6.3-8.2) g/dL Albumin (3.5-5.0) g/dL TSH (0.465-4.680) mIU/L Free T4 (0.78-2.19) ng/dL Urine Color Urine Appearance (Clear) Urine pH (5.0-8.0) Ur Specific [place] (1.001-1.035) Urine Protein (Negative) Urine Glucose (UA) (Negative) Urine Ketones (Negative) Urine Blood (Negative) Urine Nitrite (Negative) Urine Bilirubin (Negative) Urine Urobilinogen (<2.0) mg/dL Ur Leukocyte Esterase (Negative) 03/21/21 03/21/21 03/21/21 Range/Units 03:06 03:06 03:06 WBC 11.4 H (3.8-10.6) k/uL RBC 3.95 L (4.30-5.90) m/uL Hgb 13.1 (13.0-17.5) gm/dL Hct 37.5 L (39.0-53.0) % MCV 95.1 (80.0-100.0) fL MCH 33.2 (25.0-35.0) pg MCHC 34.9 (31.0-37.0) g/dL RDW 13.4 (11.5-15.5) % Plt Count 206 (150-450) k/uL MPV 7.3 Neutrophils % 84 % Lymphocytes % 9 % Monocytes % 4 % Eosinophils % 2 % Basophils % 0 % Neutrophils # 9.6 H (1.3-7.7) k/uL Lymphocytes # 1.0 (1.0-4.8) k/uL Monocytes # 0.4 (0-1.0) k/uL Eosinophils # 0.2 (0-0.7) k/uL Basophils # 0.0 (0-0.2) k/uL Hypochromasia PT (9.0-12.0) sec INR (<1.2) APTT (22.0-30.0) sec Sodium 134 L (137-145) mmol/L Potassium 4.9 (3.5-5.1) mmol/L Chloride 109 H (98-107) mmol/L Carbon Dioxide 19 L (22-30) mmol/L Anion Gap 6 mmol/L BUN 21 H (9-20) mg/dL Creatinine 0.89 (0.66-1.25) mg/dL Est GFR (CKD-EPI)AfAm 89 (>60 ml/min/1.73 sqM) Est GFR (CKD-EPI)NonAf 77 (>60 ml/min/1.73 sqM) Glucose 142 H (74-99) mg/dL Lactic Ac Sepsis Rflx Plasma Lactic Acid Geraldo 2.5 H* (0.7-2.0) mmol/L Calcium 8.3 L (8.4-10.2) mg/dL Phosphorus 2.4 L (2.5-4.5) mg/dL Magnesium 1.5 L (1.6-2.3) mg/dL Total Bilirubin 0.3 (0.2-1.3) mg/dL AST 41 (17-59) U/L ALT 35 (4-49) U/L Alkaline Phosphatase 63 (38-126) U/L Creatine Kinase (55-170) U/L Troponin I (0.000-0.034) ng/mL Total Protein 5.5 L (6.3-8.2) g/dL Albumin 2.9 L (3.5-5.0) g/dL TSH (0.465-4.680) mIU/L Free T4 (0.78-2.19) ng/dL Urine Color Urine Appearance (Clear) Urine pH (5.0-8.0) Ur Specific [place] (1.001-1.035) Urine Protein (Negative) Urine Glucose (UA) (Negative) Urine Ketones (Negative) Urine Blood (Negative) Urine Nitrite (Negative) Urine Bilirubin (Negative) Urine Urobilinogen (<2.0) mg/dL Ur Leukocyte Esterase (Negative) 03/21/21 03/21/21 03/21/21 Range/Units 03:06 03:32 07:28 WBC (3.8-10.6) k/uL RBC (4.30-5.90) m/uL Hgb (13.0-17.5) gm/dL Hct (39.0-53.0) % MCV (80.0-100.0) fL MCH (25.0-35.0) pg MCHC (31.0-37.0) g/dL RDW (11.5-15.5) % Plt Count (150-450) k/uL MPV Neutrophils % % Lymphocytes % % Monocytes % % Eosinophils % % Basophils % % Neutrophils # (1.3-7.7) k/uL Lymphocytes # (1.0-4.8) k/uL Monocytes # (0-1.0) k/uL Eosinophils # (0-0.7) k/uL Basophils # (0-0.2) k/uL Hypochromasia PT (9.0-12.0) sec INR (<1.2) APTT (22.0-30.0) sec Sodium (137-145) mmol/L Potassium (3.5-5.1) mmol/L Chloride (98-107) mmol/L Carbon Dioxide (22-30) mmol/L Anion Gap mmol/L BUN (9-20) mg/dL Creatinine (0.66-1.25) mg/dL Est GFR (CKD-EPI)AfAm (>60 ml/min/1.73 sqM) Est GFR (CKD-EPI)NonAf (>60 ml/min/1.73 sqM) Glucose (74-99) mg/dL Lactic Ac Sepsis Rflx Y Plasma Lactic Acid Geraldo 2.0 (0.7-2.0) mmol/L Calcium (8.4-10.2) mg/dL Phosphorus (2.5-4.5) mg/dL Magnesium (1.6-2.3) mg/dL Total Bilirubin (0.2-1.3) mg/dL AST (17-59) U/L ALT (4-49) U/L Alkaline Phosphatase (38-126) U/L Creatine Kinase (55-170) U/L Troponin I (0.000-0.034) ng/mL Total Protein (6.3-8.2) g/dL Albumin (3.5-5.0) g/dL TSH 0.382 L (0.465-4.680) mIU/L Free T4 1.03 (0.78-2.19) ng/dL Urine Color Urine Appearance (Clear) Urine pH (5.0-8.0) Ur Specific [place] (1.001-1.035) Urine Protein (Negative) Urine Glucose (UA) (Negative) Urine Ketones (Negative) Urine Blood (Negative) Urine Nitrite (Negative) Urine Bilirubin (Negative) Urine Urobilinogen (<2.0) mg/dL Ur Leukocyte Esterase (Negative) - Radiology Data Radiology results: report reviewed (Chest x-ray and CT brain are negative for acute disease, CT abdomen and pelvis are negative for acute disease), image reviewed Disposition Clinical Impression: Chest pain, Dehydration, Vertigo, Dizziness Disposition: ADMITTED IP TO THIS [facility] Condition: Fair
[2021-03-20 05:23] LABS: Basophils # (A) 0.1 k/uL (0-0.2); Basophils % (A) 1 %; Eosinophils # (A) 0.3 k/uL (0-0.7); Eosinophils % (A) 3 %; HCT 39.9 % (39.0-53.0); HGB 13.2 gm/dL (13.0-17.5); Lymphocytes # (A) 3.6 k/uL (1.0-4.8); Lymphocytes % (A) 37 %; MCH 31.9 pg (25.0-35.0); MCV 96.6 fL (80.0-100.0); Mean Platelet Volume 8.3; Monocytes # (A) 0.7 k/uL (0-1.0); Monocytes % (A) 7 %; Neutrophils # (A) 4.7 k/uL (1.3-7.7); Neutrophils % (A) 49 %; Platelet Count 232 k/uL (150-450); RBC 4.13 m/uL (4.30-5.90); RDW 13.1 % (11.5-15.5); WBC 9.7 k/uL (3.8-10.6)
[2021-03-20 05:31] LABS: Prothrombin Time 10.7 sec (9.0-12.0)
[2021-03-20 05:38] LABS: Partial Thromboplastin Time 20.3 sec (22.0-30.0)
[2021-03-20 05:45] LABS: Albumin 3.3 g/dL (3.5-5.0); Calcium 9.1 mg/dL (8.4-10.2); Magnesium 1.7 mg/dL (1.6-2.3); Potassium 3.4 mmol/L (3.5-5.1); Total Bilirubin 0.3 mg/dL (0.2-1.3); Total Protein 5.9 g/dL (6.3-8.2)
--- NOTE | 2021-03-20 06:02 | XR ---
EXAMINATION TYPE: XR chest 2V DATE OF EXAM: 03/20/2021 COMPARISON: 02/07/2020 HISTORY: Weakness TECHNIQUE: 2 view FINDINGS: There is some mild atelectasis at the lung bases. There is no gross heart failure. Heart si ze is fairly normal. Thoracic aorta is atheromatous. There is no pleural effusion. IMPRESSION: Mild subsegmental atelectasis at the lung bases increased compared to old exam. No heart failure.
[2021-03-20] MEDS ORDERED: ONDANSETRON 4 MG/2 ML VIAL IVP STA (06:11)
[2021-03-20] MEDS ORDERED: diphenhydrAMINE 50 MG/ML 1 ML VIAL IVP STA (06:11)
[2021-03-20] MEDS ORDERED: MORPHINE SULFATE 4 MG/ML SYRINGE IV PRN (06:38)
[2021-03-20] MEDS ORDERED: NALOXONE 0.4 MG/ML 1 ML VIAL IV PRN (06:38)
[2021-03-20] MEDS ORDERED: ONDANSETRON 4 MG/2 ML VIAL IVP PRN (06:39)
[2021-03-20] MEDS ORDERED: diphenhydrAMINE 50 MG/ML 1 ML VIAL IVP PRN (06:39)
[2021-03-20] MEDS: SODIUM CHLORIDE 0.9% 1,000 ML IV SCH ×2 (06:48→15:10)
--- NOTE | 2021-03-20 07:20 | CT ---
EXAMINATION TYPE: CT brain wo con DATE OF EXAM: 03/20/2021 COMPARISON: None HISTORY: nausea and vomiting TECHNIQUE: CT scan of the brain without contrast CT DLP: 1200.4 mGycm Automated exposure control for dose reduction was used. FINDINGS: No evidence of acute intracranial hemorrhage midline shift or mass effect. Valdes-white matter differen tiation is preserved. Patchy low-attenuation in the deep white matter periventricular region. Low attenuating foci scattere d in the bilateral basal ganglia. Bilateral basal ganglia calcifications. Brain volume atrophy with associated prominence of the CSF spaces and ventricular system. There are sclerotic calcifications in the internal carotid arteries and vertebral arteries. No acute intraorbital, osseous or soft tissue abnormality. Surgical changes are seen in both orbits. Paranasal sinuses and mastoid air cells are radiated. Mild mucosal sinus disease noted. IMPRESSION: NO EVIDENCE OF ACUTE INTRACRANIAL HEMORRHAGE OR MASS EFFECT. BRAIN VOLUME LOSS AND LACUNAR INFARCTS. MILD MUCOSAL SINUS DISEASE.
[2021-03-20] MEDS ORDERED: PANTOPRAZOLE 40 MG/10 ML VIAL IV SCH (09:00)
[2021-03-20] MEDS ORDERED: POTASSIUM CHLORIDE ER 20 MEQ TAB.ER PO STA (09:59)
[2021-03-20 10:13] LABS: Appearance,Urine Clear (Clear); Bilirubin,Urine Negative (Negative); Blood,Urine Negative (Negative); Color,Urine Light Yellow; Glucose,Urine (UA) 3+ (Negative); Ketones,Urine 1+ (Negative); Leukocyte Esterase,Urine Negative (Negative); Nitrite,Urine Negative (Negative); PH, Urine 5.5 (5.0-8.0); Protein,Urine Negative (Negative); Specific Gravity,Urine 1.012 (1.001-1.035); Urobilinogen,Urine <2.0 mg/dL (<2.0)
[2021-03-20] MEDS ORDERED: SODIUM CHLORIDE 0.9% 1,000 ML IV ONE (10:27)
[2021-03-20] MEDS ORDERED: NITROGLYCERIN SL TABS 0.4 MG TAB SUBLINGUAL PRN (10:45)
--- NOTE | 2021-03-20 10:54 | P.HPIM ---
History of Present Illness 03/20/2021 Patient is a pleasant 85-year-old male came in with compensative severe dizziness and extreme fatigue which started yesterday patient was also having nausea vomiting. Patient the doesn't have any fevers but was hypothermic at the 96 patient is also found to have lactic is doses of 6. Patient was also complained of palpitations. Patient denied any dysuria denied any cough chest x-ray showed mild atelectasis urine analysis is not available. Blood cultures will be obtained UA and urine cultures will be up and patient will be started empirically on Rocephin although there is no clear source of infection or evidence of infection. Patient's dizziness is extremely lightheadedness denied any vertigo. Patient was also complaining of a crampy abdominal pain. 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 REVIEW OF SYSTEMS: CONSTITUTIONAL: As mentioned in HPI HEENT: No recent visual problems or hearing problems. Denied any sore throat. CARDIOVASCULAR: No chest pain, orthopnea, PND, no palpitations, no syncope. PULMONARY: No shortness of breath, no cough, no hemoptysis. GASTROINTESTINAL: No diarrhea, no nausea, no vomiting, no abdominal pain. NEUROLOGICAL: No headaches, no weakness, no numbness. HEMATOLOGICAL: Denies any bleeding or petechiae. GENITOURINARY: Denies any burning micturition, frequency, or urgency. MUSCULOSKELETAL/RHEUMATOLOGICAL: Denies any joint pain, swelling, or any muscle pain. ENDOCRINE: Denies any polyuria or polydipsia. The rest of the 14-point review of systems is negative. PHYSICAL EXAMINATION: GENERAL: The patient is alert and oriented x3, not in any acute distress. Well developed, well nourished. Patient is extremely fatigued cold and clammy extremities HEENT: Pupils are round and equally reacting to light. EOMI. No scleral icterus. No conjunctival pallor. Normocephalic, atraumatic. No pharyngeal erythema. No thyromegaly. CARDIOVASCULAR: S1 and S2 present. No murmurs, rubs, or gallops. PULMONARY: Chest is clear to auscultation, no wheezing or crackles. ABDOMEN: Soft, nontender, nondistended, normoactive bowel sounds. No palpable organomegaly. MUSCULOSKELETAL: No joint swelling or deformity. EXTREMITIES: No cyanosis, clubbing, or pedal edema. NEUROLOGICAL: Gross neurological examination did not reveal any focal deficits. SKIN: No rashes. Assessment and plan -Hypothermia, dizziness and extreme fatigue: Sepsis cannot be ruled out although source is not clear at this time patient will be started empirically on Rocephin after obtaining blood cultures, urinalysis and urine cultures. Patient is complaining of abdominal pain do a CT of the abdomen to rule out any intra- abdominal source of infection. Chest x-ray showed atelectasis will use incentive spirometry. -Tachycardia: Probably secondary to systemic inflammatory response -Lactic acidosis as mentioned above sepsis cannot be ruled out patient will be given a bolus of IV fluids and after that patient will be continued on normal saline at 1 30 mL per hour patient is not on metformin . -Hypertension -Coronary artery disease with stents in the past DVT prophylaxis: Lovenox Past Medical History Past Medical History: Hypertension, Myocardial Infarction ([place]) Additional Past Medical History / Comment(s): Anterior wall [place] 05/18/14, ischemic cardiomyopathy, spinal stenosis, numbness to bilateral legs and feet, BPH, pt denies hyperlipidemia-takes lipitor. Last Myocardial Infarction Date:: 05/18/2014 History of Any Multi-Drug Resistant Organisms: None Reported Past Surgical History: Heart Catheterization, Heart Catheterization With Stent Additional Past Surgical History / Comment(s): HEART CATH WITH 3 STENTS 05/18/14 (2 stents to LAD) and 06/03/14 (1 stent to obtuse marginal), cardiac cath 2014, colonoscopy-normal Past Anesthesia/Blood Transfusion Reactions: No Reported Reaction Additional Past Anesthesia/Blood Transfusion Reaction / Comment(s): Pt states he has never had general anesthesia. He also has never recieved blood. Date of Last Stent Placement:: 06/03/14 Past Psychological History: No Psychological Hx Reported Additional Psychological History / Comment(s): Pt resides alone. He is independent. He uses a walker to ambulate due to spinal stenosis making bi lateral legs and feet numb. He performs his own ADLs and no longer has any home care. He did use [facility] after his [place] discharge 05/19. He drives. Smoking Status: Never smoker Past Alcohol Use History: None Reported Past Drug Use History: None Reported - Past Family History Father Family Medical History: No Reported History Additional Family Medical History / Comment(s): Father in his 80's. Mother Family Medical History: Coronary Artery Disease (CAD) Additional Family Medical History / Comment(s): Mother at age 63yrs and pt believes it may have been due to a heart problem. Medications and Allergies Home Medications Medication Instructions Recorded Confirmed Type Metoprolol Tartrate [Lopressor] 50 mg PO BID #180 tab 05/22/14 03/20/21 Rx Nitroglycerin Sl Tabs [Nitrostat] 0.4 mg SUBLINGUAL Q5M PRN #25 tab 05/22/14 03/20/21 Rx Spironolactone [Aldactone] 25 mg PO DAILY #90 tab 05/22/14 03/20/21 Rx Atorvastatin [Lipitor] 40 mg PO HS 06/06/17 03/20/21 History Fluticasone Nasal [place] [Flonase 2 spr EA NOSTRIL DAILY 03/20/21 03/20/21 History Nasal [place]] Losartan Potassium [Cozaar] 25 mg PO BID 03/20/21 03/20/21 History Allergies Allergy/AdvReac Type Severity Reaction Status Date / Time No Known Allergies Allergy Verified 03/20/21 09:54 Physical Exam Vitals: Vital Signs Temp Pulse Pulse Resp BP BP Pulse Ox 03/20/21 10:32 97.3 F L 109 H 17 170/84 97 03/20/21 07:00 96.1 F L 103 H 17 157/82 97 03/20/21 06:53 108 H 18 150/82 97 03/20/21 05:05 97.6 F 99 20 136/77 97 Intake and Output 03/19/21 03/20/21 03/20/21 22:59 06:59 14:59 Other: Voiding Method Urinal Weight 92.986 kg 92.986 kg Results CBC & Chem 7: 03/20/21 05:13 03/20/21 05:13 Labs: Abnormal Lab Results - Last 24 Hours (Table) 03/20/21 03/20/21 03/20/21 Range/Units 05:13 05:13 05:13 RBC 4.13 L (4.30-5.90) m/uL APTT 20.3 L (22.0-30.0) sec Potassium (3.5-5.1) mmol/L Chloride (98-107) mmol/L Carbon Dioxide (22-30) mmol/L BUN (9-20) mg/dL Glucose (74-99) mg/dL Plasma Lactic Acid Geraldo (0.7-2.0) mmol/L Creatine Kinase (55-170) U/L Total Protein (6.3-8.2) g/dL Albumin (3.5-5.0) g/dL Urine Glucose (UA) 3+ H (Negative) Urine Ketones 1+ H (Negative) 03/20/21 03/20/21 03/20/21 Range/Units 05:13 05:13 08:05 RBC (4.30-5.90) m/uL APTT (22.0-30.0) sec Potassium 3.4 L (3.5-5.1) mmol/L Chloride 111 H (98-107) mmol/L Carbon Dioxide 17 L (22-30) mmol/L BUN 27 H (9-20) mg/dL Glucose 207 H (74-99) mg/dL Plasma Lactic Acid Geraldo 4.3 H* 6.1 H* (0.7-2.0) mmol/L Creatine Kinase 37 L (55-170) U/L Total Protein 5.9 L (6.3-8.2) g/dL Albumin 3.3 L (3.5-5.0) g/dL Urine Glucose (UA) (Negative) Urine Ketones (Negative) Thrombosis Risk Factor Assmnt - Choose All That Apply Any of the Below Risk Factors Present?: No Other Risk Factors: Yes Each Risk Factor Represents 3 Points: Age 75 years or older Thrombosis Risk Factor Assessment Total Risk Factor Score: 3 Thrombosis Risk Factor Assessment Level: Moderate Risk
[2021-03-20] MEDS: METOPROLOL TARTRATE 50 MG TAB PO SCH ×2 (11:09→20:24)
--- NOTE | 2021-03-20 12:56 | CT ---
EXAMINATION TYPE: CT abdomen pelvis w con DATE OF EXAM: 03/20/2021 COMPARISON: 07/20/2018 HISTORY: generalized pain CT DLP: 2211.4 mGycm, Automated Exposure Control for Dose Reduction was Utilized. CONTRAST: CT scan of the abdomen and pelvis is performed with oral and with IV Contrast, patient injected with 100 mL of Isovue 300. FINDINGS: LUNG BASES: Subsegmental atelectasis. Trace left pleural effusion. INCLUDED CARDIAC STRUCTURES: Intracardiac calcifications. No cardiomegaly. LIVER: No significant abnormality is appreciated. GALLBLADDER : Tiny gallbladder calculus series 4 image 32. BILIARY TREE: No abnormal biliary tree dilation. PANCREAS: No significant abnormality is seen. SPLEEN: No significant abnormality is seen. ADRENALS: No significant abnormality is seen. KIDNEYS AND URETERS: Kidneys are normal in appearance. There is no hydronephrosis. There is a calculu s in the expected location of the distal ureter just proximal to the left ureterovesical junction. Th ere is no dilatation of the left ureter. URINARY BLADDER: Partially distended, unremarkable as seen. PROSTATE: Prominent prostate gland. There is a small right hydrocele ESOPHAGUS: No significant abnormality is seen. STOMACH: High density layering material is seen in the gastric body. Slight irregularity is seen in t he posterior gastric wall seen on series 4 image 16. SMALL BOWEL: There is an apparent element of bowel malrotation as the duodenum does not cross the mid line at the expected location this is likely congenital and has not changed in appearance since prior CT. The small bowel loops are normal in caliber. Lack of oral contrast limits evaluation of the sofie l LARGE BOWEL: There is no evidence of intestinal obstruction. Descending and sigmoid diverticulosis is seen with no evidence of complicated acute diverticulitis. APPENDIX: Normal HERNIAS: No evidence of hernia. PERITONEUM/MESENTRY: No pneumoperitoneum or ascites. LYMPH NODES: No enlarged retroperitoneal or pelvic lymph nodes are appreciated. MAJOR VASCULAR STRUCTURES: Nonaneurysmal aorta. Scattered atherosclerotic calcifications seen in the wall of the aorta and its major branches proximally. OSSEOUS STRUCTURES: Scoliotic curvature seen in the thoracolumbar spine. Moderate to advanced degener ative changes are seen in the thoracic and lumbar spine. Degenerative changes in bilateral hip joints and sacroiliac joints. No acute fracture or dislocation seen. IMPRESSION: 1. HIGH DENSITY MATERIAL LAYERING IN THE GASTRIC LUMEN WITH IRREGULARITY IN THE POSTERIOR GASTRIC WAL L, CORRELATE FOR ACUTE GASTRIC HEMORRHAGE/ULCER. 2. DESCENDING AND SIGMOID DIVERTICULOSIS WITH NO EVIDENCE OF COMPLICATED ACUTE DIVERTICULITIS. EARLY OR VERY MILD DIVERTICULITIS CANNOT BE ENTIRELY EXCLUDED. 3. OTHER INCIDENTAL FINDINGS, SEE BODY OF REPORT 4. QUESTIONABLE 3 MM LEFT DISTAL URETER NONOBSTRUCTING CALCULUS. CRITICAL RESULT : I CALLED DR. SERRA WITH ABOVE RESULTS AT 12:52 PM 03/20/2021. CLINICAL INDICATIONS ACKNOWLEDGED.
[2021-03-20] MEDS ORDERED: VANCOMYCIN IV PER PHARMACY 1 EACH MISC MISCELLANE PRN (14:29)
[2021-03-20] MEDS: VANCOMYCIN 1,500 MG in SODIUM CHLORIDE 0.9% 250 ML IVPB SCH (15:10)
[2021-03-20] MEDS: PIPERACILLIN-TAZOBACTAM 3.375 GM in SODIUM CHLORIDE 0.9% 100 ML IVPB SCH (15:10)
[2021-03-20 15:25] LABS: HGB 13.4 gm/dL (13.0-17.5); Hypochromasia Slight; MCH 31.8 pg (25.0-35.0); MCHC 32.6 g/dL (31.0-37.0); MCV 97.6 fL (80.0-100.0); Mean Platelet Volume 8.3; Platelet Count 205 k/uL (150-450)
[2021-03-20 15:39] LABS: Albumin 3.4 g/dL (3.5-5.0); Calcium 8.4 mg/dL (8.4-10.2); Potassium 4.3 mmol/L (3.5-5.1); Total Bilirubin 0.2 mg/dL (0.2-1.3); Total Protein 6.1 g/dL (6.3-8.2)
[2021-03-20] MEDS: PANTOPRAZOLE 40 MG/10 ML VIAL IV SCH (20:24)
[2021-03-20] MEDS: ATORVASTATIN 40 MG TAB PO SCH (20:24)
[2021-03-20] MEDS ORDERED: LOSARTAN 25 MG TAB PO SCH (21:00)
[2021-03-21] MEDS: PIPERACILLIN-TAZOBACTAM 3.375 GM in SODIUM CHLORIDE 0.9% 100 ML IVPB SCH ×3 (00:31→15:41)
[2021-03-21 03:17] LABS: Basophils % (A) 0 %; Eosinophils # (A) 0.2 k/uL (0-0.7); Eosinophils % (A) 2 %; HCT 37.5 % (39.0-53.0); HGB 13.1 gm/dL (13.0-17.5); Lymphocytes % (A) 9 %; MCH 33.2 pg (25.0-35.0); MCHC 34.9 g/dL (31.0-37.0); MCV 95.1 fL (80.0-100.0); Mean Platelet Volume 7.3; Monocytes # (A) 0.4 k/uL (0-1.0); Monocytes % (A) 4 %; Neutrophils # (A) 9.6 k/uL (1.3-7.7); Neutrophils % (A) 84 %; Platelet Count 206 k/uL (150-450); RBC 3.95 m/uL (4.30-5.90); RDW 13.4 % (11.5-15.5); WBC 11.4 k/uL (3.8-10.6)
[2021-03-21 03:33] LABS: Albumin 2.9 g/dL (3.5-5.0); Calcium 8.3 mg/dL (8.4-10.2); Magnesium 1.5 mg/dL (1.6-2.3); Phosphorus 2.4 mg/dL (2.5-4.5); Potassium 4.9 mmol/L (3.5-5.1); Total Bilirubin 0.3 mg/dL (0.2-1.3); Total Protein 5.5 g/dL (6.3-8.2)
[2021-03-21] MEDS: VANCOMYCIN 1,500 MG in SODIUM CHLORIDE 0.9% 250 ML IVPB SCH ×2 (06:30→22:55)
[2021-03-21] MEDS: SODIUM CHLORIDE 0.9% 1,000 ML IV SCH ×3 (06:30→14:49)
[2021-03-21] MEDS ORDERED: Magnesium Replacement Protocol 1 EACH MISC MISCELLANE PRN (08:29)
[2021-03-21] MEDS: MAGNESIUM SULFATE-D5W PMX 1 GM in DEXTROSE/WATER 1 100ML.BAG IVPB SCH ×2 (09:09→11:29)
[2021-03-21] MEDS: ENOXAPARIN 40 MG/0.4 ML SYRINGE SQ SCH (09:09)
[2021-03-21] MEDS: PANTOPRAZOLE 40 MG/10 ML VIAL IV SCH ×2 (09:10→20:16)
[2021-03-21] MEDS: METOPROLOL TARTRATE 25 MG TAB PO SCH ×2 (09:10→20:16)
--- NOTE | 2021-03-21 10:45 | P.CRDCN ---
History of Present Illness History of present illness: HISTORY OF PRESENTING ILLNESS This is a pleasant 85-year-old male past medical history significant for coronary artery disease s/p PCI LAD and circumflex 2013 and 2014, ischemic cardiomyopathy, chronic systolic heart failure, hypertension and dyslipidemia. He follows in the office with Dr Alford. We have been asked to see in consultation for palpitations and weakness. He states yesterday while laying in bed he started feeling very weak, tired and lightheaded like he was going to pass out. He felt some associated palpitations, nausea and vomiting. He states it felt like his heart was racing. The symptoms continued to progress prompting him to call 911. EKG on arrival revealed sinus mechanism heart rate of 95 inferior Q wave and poor R-wave progression, consistent with previous EKGs. Telemetry tracings reviewed. Last evening he had an episode of paroxysmal atrial fibrillation that was very brief in nature and spontaneously converted to sinus. He does recall feeling dizzy last evening. He states again this morning while laying in bed he had similar episode of dizziness and palpitations. Telemetry tracings this morning were unremarkable and reveal sinus mechanism. He has barely touched his breakfast and he states it is because after he eats he gets epigastric pain. Chest x-ray reveals subsegmental atelectasis at the lung bases. Brain CT unremarkable. CT of abdomen and pelvis revealed high density material layering in the gastric lumen with irregularity in the posterior gastric wall, correlate for acute gastric hemorrhage/ulcer. Laboratory data reviewed, WBC on admission 14 repeat today 11.4, hemoglobin 13.1, platelets 206, sodium 134, potassium 4.9, creatinine 0.89, peak lactic acid 6. 8 repeat today 2.0, 2 troponins negative, third 0.069, TSH 0.382 and magnesium 1.5. Current daily cardiac medications include Aldactone 25 mg daily, Lopressor 50 mg twice a day, losartan 25 mg twice a day and atorvastatin 40 mg daily. Most recent echoc ardiogram obtained July 2018 reveals mildly impaired LV systolic function with ejection fraction 45%, mild mitral regurgitation and mild tricuspid regurgitation. REVIEW OF SYSTEMS At the time of my exam: CONSTITUTIONAL: Denies fever or chills. CARDIOVASCULAR: Denies chest pain, shortness of breath, orthopnea, PND or palpitations. RESPIRATORY: Denies cough. GASTROINTESTINAL: Denies abdominal pain, diarrhea, constipation, nausea or vomiting. MUSCULOSKELETAL: Denies myalgias. NEUROLOGIC: Denies numbness, tingling, headache or weakness. ENDOCRINE: Denies fatigue, weight change, polydipsia or polyurina. GENITOURINARY: Denies burning, hematuria or urgency with micturation. HEMATOLOGIC: Denies history of anemia or bleeding. PHYSICAL EXAMINATION Blood pressure 131/64 heart rate 81 afebrile and maintaining oxygen saturation on room air. CONSTITUTIONAL: No apparent distress. HEENT: Head is normocephalic. Pupils are equal, round. Sclerae anicteric. Mucous membranes of the mouth are moist. No JVD. No carotid bruit. CHEST EXAMINATION: Lungs are clear to auscultation. No chest wall tenderness is noted on palpation or with deep breathing. HEART EXAMINATION: Regular rate and rhythm. S1, S2 heard. Systolic ejection murmur at the base, no gallops or rub. ABDOMEN: Soft, nontender. EXTREMITIES: 2+ peripheral pulses, no lower extremity edema and no calf tenderness. NEUROLOGIC EXAMINATION: Patient is awake, alert and oriented x3. ASSESSMENT Generalized weakness Possible gastric bleeding Paroxysmal atrial fibrillation, brief. New onset Leukocytosis Lactic acidosis Hypomagnesemia Coronary artery disease Chronic systolic heart failure, clinically euvolemic Hypertension Dyslipidemia PLAN Decrease losartan to daily at noontime. Increase lopressor to 75 mg BID. Replace magnesium per protocol. Obtain 2D echocardiogram and doppler study to assess cardiac structure and function. Check for orthostatic changes. Hold on anticoagulation at this time due to possible gastric bleeding. Await GI evaluation. Palpitations and atrial fibrillation do not seem to be the cause for his symptoms. Further medical evaluation by the primary medical team. We will continue to follow and make recommendations accordingly. Thank you kindly for this consultation. Nurse Practitioner note has been reviewed, I agree with a documented findings and plan of care. Patient was seen and examined. Past Medical History Past Medical History: Hypertension, Myocardial Infarction ([place]) Additional Past Medical History / Comment(s): Anterior wall [place] 05/18/14, ischemic cardiomyopathy, spinal stenosis, numbness to bilateral legs and feet, BPH, pt denies hyperlipidemia-takes lipitor. Last Myocardial Infarction Date:: 05/18/2014 History of Any Multi-Drug Resistant Organisms: None Reported Past Surgical History: Heart Catheterization, Heart Catheterization With Stent Additional Past Surgical History / Comment(s): HEART CATH WITH 3 STENTS 05/18/14 (2 stents to LAD) and 06/03/14 (1 stent to obtuse marginal), cardiac cath 2014, colonoscopy-normal Past Anesthesia/Blood Transfusion Reactions: No Reported Reaction Additional Past Anesthesia/Blood Transfusion Reaction / Comment(s): Pt states he has never had general anesthesia. He also has never recieved blood. Date of Last Stent Placement:: 06/03/14 Past Psychological History: No Psychological Hx Reported Additional Psychological History / Comment(s): Pt resides alone. He is independent. He uses a walker to ambulate due to spinal stenosis making bi lateral legs and feet numb. He performs his own ADLs and no longer has any home care. He did use [facility] after his [facility] discharge 05/19. He drives. Smoking Status: Never smoker Past Alcohol Use History: None Reported Past Drug Use History: None Reported - Past Family History Father Family Medical History: No Reported History Additional Family Medical History / Comment(s): Father in his 80's. Mother Family Medical History: Coronary Artery Disease (CAD) Additional Family Medical History / Comment(s): Mother at age 63yrs and pt believes it may have been due to a heart problem. Medications and Allergies Home Medications Medication Instructions Recorded Confirmed Type Metoprolol Tartrate [Lopressor] 50 mg PO BID #180 tab 05/22/14 03/20/21 Rx Nitroglycerin Sl Tabs [Nitrostat] 0.4 mg SUBLINGUAL Q5M PRN #25 tab 05/22/14 03/20/21 Rx Spironolactone [Aldactone] 25 mg PO DAILY #90 tab 05/22/14 03/20/21 Rx Atorvastatin [Lipitor] 40 mg PO HS 06/06/17 03/20/21 History Fluticasone Nasal [place] [Flonase 2 spr EA NOSTRIL DAILY 03/20/21 03/20/21 History Nasal [place]] Losartan Potassium [Cozaar] 25 mg PO BID 03/20/21 03/20/21 History Allergies Allergy/AdvReac Type Severity Reaction Status Date / Time No Known Allergies Allergy Verified 03/20/21 09:54 Physical Exam Vitals: Vital Signs Temp Pulse Resp BP Pulse Ox 03/21/21 04:00 98.5 F 77 18 130/69 93 L 03/20/21 23:16 98.6 F 90 16 117/60 92 L 03/20/21 19:53 97.9 F 98 18 141/80 98 03/20/21 16:00 97.6 F 108 H 16 171/86 96 03/20/21 14:00 110 H 16 03/20/21 12:46 97.8 F 110 H 16 144/72 96 03/20/21 10:32 97.3 F L 109 H 17 170/84 97 Intake and Output 03/20/21 03/21/21 03/21/21 22:59 06:59 14:59 Output Total 425 700 Balance -425 -700 Output: Urine 425 700 Other: Voiding Method Urinal Urinal # Voids 1 # Bowel Movements 1 Weight 81.5 kg Results 03/21/21 03:06 03/21/21 03:06 Cardiac Enzymes 03/20/21 03/20/21 03/20/21 Range/Units 08:05 11:58 15:12 AST 43 (17-59) U/L Troponin I <0.012 0.069 H* (0.000-0.034) ng/mL 03/21/21 Range/Units 03:06 AST 41 (17-59) U/L Troponin I (0.000-0.034) ng/mL CBC 03/20/21 03/21/21 Range/Units 15:12 03:06 WBC 14.0 H 11.4 H (3.8-10.6) k/uL RBC 4.20 L 3.95 L (4.30-5.90) m/uL Hgb 13.4 13.1 (13.0-17.5) gm/dL Hct 41.0 37.5 L (39.0-53.0) % Plt Count 205 206 (150-450) k/uL Comprehensive Metabolic Panel 03/20/21 03/21/21 Range/Units 15:12 03:06 Sodium 140 134 L (137-145) mmol/L Potassium 4.3 4.9 (3.5-5.1) mmol/L Chloride 108 H 109 H (98-107) mmol/L Carbon Dioxide 16 L 19 L (22-30) mmol/L BUN 20 21 H (9-20) mg/dL Creatinine 0.87 0.89 (0.66-1.25) mg/dL Glucose 138 H 142 H (74-99) mg/dL Calcium 8.4 8.3 L (8.4-10.2) mg/dL AST 43 41 (17-59) U/L ALT 47 35 (4-49) U/L Alkaline Phosphatase 77 63 (38-126) U/L Total Protein 6.1 L 5.5 L (6.3-8.2) g/dL Albumin 3.4 L 2.9 L (3.5-5.0) g/dL Current Medications Generic Name Dose Route Start Last Admin Trade Name Freq PRN Reason Stop Dose Admin Atorvastatin Calcium 40 mg 03/20/21 21:00 03/20/21 20:24 Atorvastatin 40 Mg Tab PO 40 mg HS MARJAN Administration Enoxaparin Sodium 40 mg 03/21/21 09:00 Enoxaparin 40 Mg/0.4 Ml Syringe SQ DAILY MARJAN Fluticasone Propionate 2 spray 03/21/21 09:00 Fluticasone 50mcg/[place] Nasal 16gm EA NOSTRIL DAILY MARJAN Sodium Chloride 1,000 mls @ 130 mls/hr 03/20/21 06:45 03/21/21 06:52 Saline 0.9% IV Not Given .[id number] MARJAN Piperacillin Sod/Tazobactam 100 mls @ 25 mls/hr 03/20/21 16:00 03/21/21 00:31 Sod 3.375 gm/ Sodium Chloride IVPB 25 mls/hr Q8HR MARJAN Administration Vancomycin HCl 1,500 mg/ 250 mls @ 125 mls/hr 03/20/21 15:00 03/21/21 06:30 Sodium Chloride IVPB 125 mls/hr Q16H MARJAN Administration Losartan Potassium 25 mg 03/20/21 21:00 03/20/21 20:24 Losartan 25 Mg Tab PO 25 mg BID MARJAN Administration Metoprolol Tartrate 50 mg 03/20/21 11:00 03/20/21 20:24 Metoprolol Tartrate 50 Mg Tab PO 50 mg BID MARJAN Administration Naloxone HCl 0.2 mg 03/20/21 06:38 Naloxone 0.4 Mg/Ml 1 Ml Vial IV Q2M PRN Opioid Reversal Nitroglycerin 0.4 mg 03/20/21 10:45 Nitroglycerin Sl Tabs 0.4 Mg Tab SUBLINGUAL Q5M PRN Chest Pain Ondansetron HCl 4 mg 03/20/21 06:39 Ondansetron 4 Mg/2 Ml Vial IVP Q6HR PRN Nausea And Vomiting Pantoprazole Sodium 40 mg 03/20/21 21:00 03/20/21 20:24 Pantoprazole 40 Mg/10 Ml Vial IV 40 mg BID MARJAN Administration Intake and Output 03/20/21 03/21/21 03/21/21 22:59 06:59 14:59 Output Total 425 700 Balance -425 -700 Output: Urine 425 700 Other: Voiding Method Urinal Urinal # Voids 1 # Bowel Movements 1 Weight 81.5 kg 03/21/21 03:06 03/21/21 03:06
[2021-03-21] MEDS: LOSARTAN 25 MG TAB PO SCH (11:29)
[2021-03-21] MEDS: FLUTICASONE 50MCG/SPRAY NASAL 16GM EA NOSTRIL SCH (11:30)
--- NOTE | 2021-03-21 11:38 | P.PN ---
Subjective 03/20/2021 Patient is a pleasant 85-year-old male came in with compensative severe dizziness and extreme fatigue which started yesterday patient was also having nausea vomiting. Patient the doesn't have any fevers but was hypothermic at the 96 patient is also found to have lactic is doses of 6. Patient was also complained of palpitations. Patient denied any dysuria denied any cough chest x-ray showed mild atelectasis urine analysis is not available. Blood cultures will be obtained UA and urine cultures will be up and patient will be started empirically on Rocephin although there is no clear source of infection or evidence of infection. Patient's dizziness is extremely lightheadedness denied any vertigo. Patient was also complaining of a crampy abdominal pain. 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 03/21/2021 I was called multiple times as yesterday because of his lactic acidosis is a multiple boluses of IV fluids and patient was continued on the normal saline at 1 30 mL per hour. Because of continued lactic acidosis and hyperkalemia I consulted patient has sepsis and patient was started on broad-spectrum a ntibiotic although no source of infection was identified. Patient did tell me that he was in garage sale for 3 days without drinking much water which may have resulted in severe dehydration and lactic acidosis. For now we'll can you with the IV antibiotics until patient is evaluated by infectious disease was consulted.. Patient had a CT of the abdomen which did not show any infection. There is a concern about the possible peptic ulcer disease or drug GI bleed. Although patient doesn't have any blood in the stools or dark stools, attempted NG tube placement we're unable to place an NG tube to evaluate for any retained blood in the stomach. Patient the has orthostatic vitals negative today. Patient to dizziness improved significantly lactic acidosis improved to 2 but patient started retaining fluid of believe because of which are pending a chest x-ray which is showing some pulmonary congestion, holding off IV fluids. Cardiology is following the patient as well. Dehydration does explain all his symptoms and clinical course, antibiotics probably can be discontinued if infectious disease is agreeable with that. Delay will will be obtained Constitutional: Denied any fatigue denied any fever. Cardio vascular: denied any chest pain, palpitations Gastrointestinal denied any nausea vomiting Pulmonary: Denied any shortness of breath cough Neurologic denied any new focal deficits All inpatient medications were reviewed and appropriate changes in these medications as dictated in the interval history and assessment and plan. PHYSICAL EXAMINATION: GENERAL: The patient is alert and oriented x3, not in any acute distress. Well developed, well nourished. HEENT: Pupils are round and equally reacting to light. EOMI. No scleral icterus. No conjunctival pallor. Normocephalic, atraumatic. No pharyngeal erythema. No thyromegaly. CARDIOVASCULAR: S1 and S2 present. No murmurs, rubs, or gallops. PULMONARY: Chest is clear to auscultation, no wheezing or crackles. ABDOMEN: Soft, nontender, nondistended, normoactive bowel sounds. No palpable organomegaly. MUSCULOSKELETAL: No joint swelling or deformity. EXTREMITIES: No cyanosis, clubbing, or pedal edema. NEUROLOGICAL: Gross neurological examination did not reveal any focal deficits. SKIN: No rashes. Assessment and plan -Hypothermia, dizziness and extreme fatigue: Be due to severe dehydration, improved with IV fluids because of some pulmonary congestion I'm stopping the fluids at this time. Lactic acidosis improved at this time. Sepsis cannot be ruled out although source is not clear at this time patient will be started empirically on Rocephin after obtaining blood cultures, urinalysis and urine cultures pending are not significant. Abdomen is mentioned above. Patient has mildly elevated TSH T4 will be obtained. Chest x-ray showed atelectasis will use incentive spirometry. -Tachycardia: Secondary to dehydration improved Mild elevation of troponins probably secondary to dehydration cardiology is evaluating the patient patient probably will get an echocardiogram. -Lactic acidosis improved probably secondary to dehydration. -Hypertension -Coronary artery disease with stents in the past DVT prophylaxis: Lovenox Objective - Vital Signs Vital signs: Vital Signs Temp 97.8 F 03/21/21 11:23 Pulse 74 03/21/21 11:23 Resp 16 03/21/21 11:23 BP 133/64 03/21/21 11:23 Pulse Ox 94 L 03/21/21 11:23 Intake & Output 03/20/21 03/21/21 03/21/21 18:59 06:59 18:59 Intake Total 240 Output Total 525 700 Balance -525 -700 240 Weight 92.986 kg 81.5 kg Intake: Oral 240 Output: Urine 525 700 Other: Voiding Method Urinal Urinal Urinal # Voids 4 1 # Bowel Movements 1 - Labs CBC & Chem 7: 03/21/21 03:06 03/21/21 03:06 Labs: Abnormal Lab Results - Last 24 Hours (Table) 03/20/21 03/20/21 03/20/21 Range/Units 11:58 11:58 15:12 WBC 14.0 H (3.8-10.6) k/uL RBC 4.20 L (4.30-5.90) m/uL Hct (39.0-53.0) % Neutrophils # (1.3-7.7) k/uL Sodium (137-145) mmol/L Chloride (98-107) mmol/L Carbon Dioxide (22-30) mmol/L BUN (9-20) mg/dL Glucose (74-99) mg/dL Plasma Lactic Acid Geraldo 7.5 H* (0.7-2.0) mmol/L Calcium (8.4-10.2) mg/dL Phosphorus (2.5-4.5) mg/dL Magnesium (1.6-2.3) mg/dL Troponin I 0.069 H* (0.000-0.034) ng/mL Total Protein (6.3-8.2) g/dL Albumin (3.5-5.0) g/dL TSH (0.465-4.680) mIU/L 03/20/21 03/20/21 03/20/21 Range/Units 15:12 15:12 18:53 WBC (3.8-10.6) k/uL RBC (4.30-5.90) m/uL Hct (39.0-53.0) % Neutrophils # (1.3-7.7) k/uL Sodium (137-145) mmol/L Chloride 108 H (98-107) mmol/L Carbon Dioxide 16 L (22-30) mmol/L BUN (9-20) mg/dL Glucose 138 H (74-99) mg/dL Plasma Lactic Acid Geraldo 6.8 H* 3.7 H* (0.7-2.0) mmol/L Calcium (8.4-10.2) mg/dL Phosphorus (2.5-4.5) mg/dL Magnesium (1.6-2.3) mg/dL Troponin I (0.000-0.034) ng/mL Total Protein 6.1 L (6.3-8.2) g/dL Albumin 3.4 L (3.5-5.0) g/dL TSH (0.465-4.680) mIU/L 03/20/21 03/21/21 03/21/21 Range/Units 22:19 03:06 03:06 WBC 11.4 H (3.8-10.6) k/uL RBC 3.95 L (4.30-5.90) m/uL Hct 37.5 L (39.0-53.0) % Neutrophils # 9.6 H (1.3-7.7) k/uL Sodium 134 L (137-145) mmol/L Chloride 109 H (98-107) mmol/L Carbon Dioxide 19 L (22-30) mmol/L BUN 21 H (9-20) mg/dL Glucose 142 H (74-99) mg/dL Plasma Lactic Acid Geraldo 2.6 H* (0.7-2.0) mmol/L Calcium 8.3 L (8.4-10.2) mg/dL Phosphorus 2.4 L (2.5-4.5) mg/dL Magnesium 1.5 L (1.6-2.3) mg/dL Troponin I (0.000-0.034) ng/mL Total Protein 5.5 L (6.3-8.2) g/dL Albumin 2.9 L (3.5-5.0) g/dL TSH (0.465-4.680) mIU/L 03/21/21 03/21/21 Range/Units 03:06 03:06 WBC (3.8-10.6) k/uL RBC (4.30-5.90) m/uL Hct (39.0-53.0) % Neutrophils # (1.3-7.7) k/uL Sodium (137-145) mmol/L Chloride (98-107) mmol/L Carbon Dioxide (22-30) mmol/L BUN (9-20) mg/dL Glucose (74-99) mg/dL Plasma Lactic Acid Geraldo 2.5 H* (0.7-2.0) mmol/L Calcium (8.4-10.2) mg/dL Phosphorus (2.5-4.5) mg/dL Magnesium (1.6-2.3) mg/dL Troponin I (0.000-0.034) ng/mL Total Protein (6.3-8.2) g/dL Albumin (3.5-5.0) g/dL TSH 0.382 L (0.465-4.680) mIU/L
[2021-03-21 11:57] LABS: T4, Free (Free Thyroxine) 1.03 ng/dL (0.78-2.19)
--- NOTE | 2021-03-21 12:18 | XR ---
EXAMINATION TYPE: XR chest 1V portable DATE OF EXAM: 03/21/2021 Comparison: 03/20/2021 Clinical History: 85-year-old male crackles auscultated in bilateral lower lobes Findings: Heart borderline to mildly enlarged. Diffuse interstitial density increase. Small left pleural effusi on with patchy left basilar opacity. Impression: 1. Mild cardiomegaly with increased interstitial prominence. Correlate for CHF with mild pulmonary va scular congestion. 2. Small left pleural effusion with adjacent atelectasis and/or consolidation.
[2021-03-21] MEDS: ATORVASTATIN 40 MG TAB PO SCH (20:16)
--- NOTE | 2021-03-21 23:10 | P.CONS ---
History of Present Illness - Reason for Consult Consult date: 03/21/21 sepsis unknown source Requesting physician: Rolando Lainez - Chief Complaint weakness and dizziness x 1 day - History of Present Illness History of present illness : Patient is 85-year-old male presenting to the ER yesterday morning for evaluation of episode of dizziness lightheadedness and diaphoresis and the patient felt like his heart was racing patient felt like he may pass out but he did not passed out with the symptom the patient presented to the hospital on arrival to the ER the patient was afebrile and no fever has been recorded subsequently patient did have a normal white count which was subsequent up to 14,000 yesterday down to 11.4 today did have elevated lactic acid troponins were mildly elevated urine has been negative patient did have a chest x-ray subsegmental atelectasis lung bases compared to old exam patient also have a CT of abdominal pelvis with some normality on the gastric lumen concerning for possible ulcer hemorrhage diverticulosis with no diverticulitis however mild early diverticulitis not excluded patient has been admitted to hospital infectious disease was consulted today with concern for possible sepsis of unknown source patient has been feeling better since being admitted to hospital and currently denies having any headache no chest pain shortness of breath and cough no vomiting or diarrhea Review of system: Positive point has been mentioned in HPI rest of the systems are negative Past medical history : Reviewed, documented below Past surgical history : Reviewed, documented below Social history: Reviewed, documented below Medications: Reviewed, as documented below GENERAL DESCRIPTION: Elderly male lying in bed, no distress. No tachypnea or accessory muscle of respiration use. HEENT: Shows Pallor , no scleral icterus. Oral mucous membrane is dry. NECK: Trachea central, no thyromegaly. LUNGS: Unlabored breathing. Clear to auscultation anteriorly. No wheeze or crackle. HEART: S1, S2, regular rate and rhythm. ABDOMEN: Soft, no tenderness , guarding or rigidity EXTREMITIES: No edema of feet. SKIN: No rash, no masses palpable. NEUROLOGICAL: The patient is awake, alert, oriented x3, mood and affect normal. LABS AND RADIOLOGY: Reviewed results see below Assessment : Patient presented to hospital with dizziness weakness and almost passed out and diaphoresis and this patient did have elevated lactic acid patient did have abnormal CT with concern for possible gastric hemorrhage versus ulcer and mild acute diverticulitis would like to explain his symptomatology and possible source of infection is currently not behaving as a pneumonia no evidence of any cellulitis urine was negative Plan: 1-patient to continue with the Zosyn 3.375 g every 8 hours 2-discontinue vancomycin 3-gentle IV fluid We will follow on clinical condition and cultures to further adjust medication if needed Thank you for this consultation we will follow the patient along with you Past Medical History Past Medical History: Hypertension, Myocardial Infarction ([place]) Additional Past Medical History / Comment(s): Anterior wall [place] 05/18/14, ischemic cardiomyopathy, spinal stenosis, numbness to bilateral legs and feet, BPH, pt denies hyperlipidemia-takes lipitor. Last Myocardial Infarction Date:: 05/18/2014 History of Any Multi-Drug Resistant Organisms: None Reported Past Surgical History: Heart Catheterization, Heart Catheterization With Stent Additional Past Surgical History / Comment(s): HEART CATH WITH 3 STENTS 05/18/14 (2 stents to LAD) and 06/03/14 (1 stent to obtuse marginal), cardiac cath 2014, colonoscopy-normal Past Anesthesia/Blood Transfusion Reactions: No Reported Reaction Additional Past Anesthesia/Blood Transfusion Reaction / Comm: Pt states he has never had general anesthesia. He also has never recieved blood. Date of Last Stent Placement:: 06/03/14 Past Psychological History: No Psychological Hx Reported Additional Psychological History / Comment(s): Pt resides alone. He is independent. He uses a walker to ambulate due to spinal stenosis making bilateral legs and feet numb. He performs his own ADLs and no longer has any home care. He did use [facility] after his [place] discharge 05/19. He drives. Smoking Status: Never smoker Past Alcohol Use History: None Reported Past Drug Use History: None Reported - Past Family History Father Family Medical History: No Reported History Additional Family Medical History / Comment(s): Father in his 80's. Mother Family Medical History: Coronary Artery Disease (CAD) Additional Family Medical History / Comment(s): Mother at age 63yrs and pt believes it may have been due to a heart problem. Medications and Allergies Home Medications Medication Instructions Recorded Confirmed Type Metoprolol Tartrate [Lopressor] 50 mg PO BID #180 tab 05/22/14 03/20/21 Rx Nitroglycerin Sl Tabs [Nitrostat] 0.4 mg SUBLINGUAL Q5M PRN #25 tab 05/22/14 03/20/21 Rx Spironolactone [Aldactone] 25 mg PO DAILY #90 tab 05/22/14 03/20/21 Rx Atorvastatin [Lipitor] 40 mg PO HS 06/06/17 03/20/21 History Fluticasone Nasal [place] [Flonase 2 spr EA NOSTRIL DAILY 03/20/21 03/20/21 History Nasal [place]] Losartan Potassium [Cozaar] 25 mg PO BID 03/20/21 03/20/21 History Allergies Allergy/AdvReac Type Severity Reaction Status Date / Time No Known Allergies Allergy Verified 03/20/21 09:54 Physical Exam Vitals: Vital Signs Temp Pulse Pulse Resp BP BP BP 03/21/21 11:23 97.8 F 74 16 133/64 03/21/21 08:50 77 144/77 03/21/21 08:45 98.4 F 81 16 131/64 03/21/21 04:00 98.5 F 77 18 130/69 03/20/21 23:16 98.6 F 90 16 117/60 03/20/21 19:53 97.9 F 98 18 141/80 03/20/21 16:00 97.6 F 108 H 16 171/86 03/20/21 14:00 110 H 16 03/20/21 12:46 97.8 F 110 H 16 144/72 Pulse Ox 03/21/21 11:23 94 L 03/21/21 08:50 94 L 03/21/21 08:45 94 L 03/21/21 04:00 93 L 03/20/21 23:16 92 L 03/20/21 19:53 98 03/20/21 16:00 96 03/20/21 14:00 03/20/21 12:46 96 Intake and Output 03/20/21 03/21/21 03/21/21 22:59 06:59 14:59 Intake Total 240 Output Total 425 700 Balance -425 -700 240 Intake: Oral 240 Output: Urine 425 700 Other: Voiding Method Urinal Urinal Urinal # Voids 1 # Bowel Movements 1 Weight 81.5 kg Results CBC & Chem 7: 03/21/21 03:06 03/21/21 03:06 Labs: Abnormal Lab Results - Last 24 Hours (Table) 03/20/21 03/20/21 03/20/21 Range/Units 11:58 11:58 15:12 WBC 14.0 H (3.8-10.6) k/uL RBC 4.20 L (4.30-5.90) m/uL Hct (39.0-53.0) % Neutrophils # (1.3-7.7) k/uL Sodium (137-145) mmol/L Chloride (98-107) mmol/L Carbon Dioxide (22-30) mmol/L BUN (9-20) mg/dL Glucose (74-99) mg/dL Plasma Lactic Acid Geraldo 7.5 H* (0.7-2.0) mmol/L Calcium (8.4-10.2) mg/dL Phosphorus (2.5-4.5) mg/dL Magnesium (1.6-2.3) mg/dL Troponin I 0.069 H* (0.000-0.034) ng/mL Total Protein (6.3-8.2) g/dL Albumin (3.5-5.0) g/dL TSH (0.465-4.680) mIU/L 03/20/21 03/20/21 03/20/21 Range/Units 15:12 15:12 18:53 WBC (3.8-10.6) k/uL RBC (4.30-5.90) m/uL Hct (39.0-53.0) % Neutrophils # (1.3-7.7) k/uL Sodium (137-145) mmol/L Chloride 108 H (98-107) mmol/L Carbon Dioxide 16 L (22-30) mmol/L BUN (9-20) mg/dL Glucose 138 H (74-99) mg/dL Plasma Lactic Acid Geraldo 6.8 H* 3.7 H* (0.7-2.0) mmol/L Calcium (8.4-10.2) mg/dL Phosphorus (2.5-4.5) mg/dL Magnesium (1.6-2.3) mg/dL Troponin I (0.000-0.034) ng/mL Total Protein 6.1 L (6.3-8.2) g/dL Albumin 3.4 L (3.5-5.0) g/dL TSH (0.465-4.680) mIU/L 03/20/21 03/21/21 03/21/21 Range/Units 22:19 03:06 03:06 WBC 11.4 H (3.8-10.6) k/uL RBC 3.95 L (4.30-5.90) m/uL Hct 37.5 L (39.0-53.0) % Neutrophils # 9.6 H (1.3-7.7) k/uL Sodium 134 L (137-145) mmol/L Chloride 109 H (98-107) mmol/L Carbon Dioxide 19 L (22-30) mmol/L BUN 21 H (9-20) mg/dL Glucose 142 H (74-99) mg/dL Plasma Lactic Acid Geraldo 2.6 H* (0.7-2.0) mmol/L Calcium 8.3 L (8.4-10.2) mg/dL Phosphorus 2.4 L (2.5-4.5) mg/dL Magnesium 1.5 L (1.6-2.3) mg/dL Troponin I (0.000-0.034) ng/mL Total Protein 5.5 L (6.3-8.2) g/dL Albumin 2.9 L (3.5-5.0) g/dL TSH (0.465-4.680) mIU/L 03/21/21 03/21/21 Range/Units 03:06 03:06 WBC (3.8-10.6) k/uL RBC (4.30-5.90) m/uL Hct (39.0-53.0) % Neutrophils # (1.3-7.7) k/uL Sodium (137-145) mmol/L Chloride (98-107) mmol/L Carbon Dioxide (22-30) mmol/L BUN (9-20) mg/dL Glucose (74-99) mg/dL Plasma Lactic Acid Geraldo 2.5 H* (0.7-2.0) mmol/L Calcium (8.4-10.2) mg/dL Phosphorus (2.5-4.5) mg/dL Magnesium (1.6-2.3) mg/dL Troponin I (0.000-0.034) ng/mL Total Protein (6.3-8.2) g/dL Albumin (3.5-5.0) g/dL TSH 0.382 L (0.465-4.680) mIU/L
[2021-03-22] MEDS: PIPERACILLIN-TAZOBACTAM 3.375 GM in SODIUM CHLORIDE 0.9% 100 ML IVPB SCH ×4 (01:00→23:54)
[2021-03-22] MEDS: SODIUM CHLORIDE 0.9% 1,000 ML IV SCH ×2 (06:38→15:30)
[2021-03-22] MEDS: ENOXAPARIN 40 MG/0.4 ML SYRINGE SQ SCH (08:21)
[2021-03-22] MEDS: METOPROLOL TARTRATE 25 MG TAB PO SCH ×2 (08:21→20:19)
[2021-03-22] MEDS: PANTOPRAZOLE 40 MG/10 ML VIAL IV SCH ×2 (08:21→20:20)
--- NOTE | 2021-03-22 09:00 | ECHOF ---
Referral Reason:palpitations, MEASUREMENTS -------- HEIGHT: 180.3 cm WEIGHT: 81.2 kg BP: 130/69 RVIDd: 3.6 cm (< 3.3) IVSd: 1.4 cm (0.6 - 1.1) LVIDd: 4.7 cm (3.9 - 5.3) LVPWd: 1.4 cm (0.6 - 1.1) IVSs: 2.0 cm LVIDs: 3.3 cm LVPWs: 1.9 cm LA Diam: 3.4 cm (2.7 - 3.8) Ao Diam: 4.6 cm (2.0 - 3.7) AV Cusp: 2.3 cm (1.5 - 2.6) MV EXCURSION: 13.644 mm (> 18.000) MV EF SLOPE: 51 mm/s (70 - 150) EPSS: 1.6 cm MV E Clay: 0.59 m/s MV DecT: 203 ms MV A Clay: 1.02 m/s MV E/A Ratio: 0.58 AR PHT: 456 ms RAP: 5.00 mmHg RVSP: 37.86 mmHg FINDINGS -------- Sinus rhythm. This was a technically difficult study with suboptimal apical views. The left ventricular size is normal. There is moderate concentric left ventricular hypertrophy. O verall left ventricular systolic function is mild-moderately impaired with, an EF between 40 - 45 %. Basal inferior LV wall motion is hypokinetic. Apical anterior LV wall motion is hypokinetic. Apical lateral LV wall motion is hypokinetic. Apical inferior LV wall motion is hypokinetic. Ap ical septum LV wall motion is hypokinetic. The right ventricle is mildly enlarged. The left atrium is normal in size. The right atrium is normal in size. 5 ml of Lumason was utilized for enhancement of images. Interatrial and interventricular septum intact. There is mild aortic valve sclerosis. There is mild aortic regurgitation. Mild mitral annular calcification present. There is trace to mild mitral regurgitation. Mild tricuspid regurgitation present. There is mild pulmonary hypertension. The right ventricular systolic pressure, as measured by Doppler, is 37.86mmHg. Unable to estimate RVSP due to inadequate TR jet spectral doppler profile. There is no pulmonic regurgitation present. 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 IVC Not well visulized. There is no pericardial effusion. CONCLUSIONS -------- 1. The left ventricular size is normal. 2. There is moderate concentric left ventricular hypertrophy. 3. Overall left ventricular systolic function is mild-moderately impaired with, an EF between 40 - 45 %. 4. Basal inferior LV wall motion is hypokinetic. 5. Apical anterior LV wall motion is hypokinetic. 6. Apical lateral LV wall motion is hypokinetic. 7. Apical inferior LV wall motion is hypokinetic. 8. Apical septum LV wall motion is hypokinetic. 9. The right ventricle is mildly enlarged. 10. 5 ml of Lumason was utilized for enhancement of images. 11. There is mild aortic valve sclerosis. 12. There is mild aortic regurgitation. 13. Mild mitral annular calcification present. 14. There is trace to mild mitral regurgitation. 15. Mild tricuspid regurgitation present. 16. The right ventricular systolic pressure, as measured by Doppler, is 37.86mmHg. 17. Unable to estimate RVSP due to inadequate TR jet spectral doppler profile. 18. 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 19. There is no pericardial effusion. RECYCLING PROGRAM MANAGER: Santa Yip RDCS
[2021-03-22 09:07] LABS: Basophils # (A) 0.1 k/uL (0-0.2); Basophils % (A) 1 %; Eosinophils # (A) 0.1 k/uL (0-0.7); Eosinophils % (A) 1 %; HGB 13.3 gm/dL (13.0-17.5); Lymphocytes # (A) 1.1 k/uL (1.0-4.8); Lymphocytes % (A) 12 %; MCH 31.1 pg (25.0-35.0); MCHC 32.5 g/dL (31.0-37.0); MCV 95.6 fL (80.0-100.0); Mean Platelet Volume 7.9; Monocytes # (A) 0.6 k/uL (0-1.0); Monocytes % (A) 6 %; Neutrophils # (A) 7.9 k/uL (1.3-7.7); Neutrophils % (A) 80 %; Platelet Count 203 k/uL (150-450); RBC 4.29 m/uL (4.30-5.90); RDW 13.1 % (11.5-15.5); WBC 9.9 k/uL (3.8-10.6)
[2021-03-22 09:28] LABS: Albumin 3.1 g/dL (3.5-5.0); Calcium 8.7 mg/dL (8.4-10.2); Magnesium 2.1 mg/dL (1.6-2.3); Potassium 4.3 mmol/L (3.5-5.1); Total Bilirubin 0.6 mg/dL (0.2-1.3); Total Protein 5.8 g/dL (6.3-8.2)
--- NOTE | 2021-03-22 09:35 | P.PN ---
Subjective Progress Note Date: 03/22/21 HISTORY OF PRESENT ILLNESS: This is a pleasant 85-year-old male past medical history significant for coronary artery disease s/p PCI LAD and circumflex 2013 and 2014, ischemic cardiomyopathy, chronic systolic heart failure, hypertension and dyslipidemia. He follows in the office with Dr Alford. We have been asked to see in consultation for palpitations and weakness. He states yesterday while laying in bed he started feeling very weak, tired and lightheaded like he was going to pass out. He felt some associated palpitations, nausea and vomiting. He states it felt like his heart was racing. The symptoms continued to progress prompting him to call 911. EKG on arrival revealed sinus mechanism heart rate of 95 inferior Q wave and poor R-wave progression, consistent with previous EKGs. Telemetry tracings reviewed. Last evening he had an episode of paroxysmal atrial fibrillation that was very brief in nature and spontaneously converted to sinus. He does recall feeling dizzy last evening. He states again this morning while laying in bed he had similar episode of dizziness and palpitations. Telemetry tracings this morning were unremarkable and reveal sinus mechanism. He has barely touched his breakfast and he states it is because after he eats he gets epigastric pain. Chest x-ray reveals subsegmental atelectasis at the lung bases. Brain CT unremarkable. CT of abdomen and pelvis revealed high density material layering in the gastric lumen with irregularity in the posterior gastric wall, correlate for acute gastric hemorrhage/ulcer. Laboratory data reviewed, WBC on admission 14 repeat today 11.4, hemoglobin 13.1, platelets 206, sodium 134, potassium 4.9, creatinine 0.89, peak lactic acid 6. 8 repeat today 2.0, 2 troponins negative, third 0.069, TSH 0.382 and magnesium 1.5. Current daily cardiac medications include Aldactone 25 mg daily, Lopressor 50 mg twice a day, losartan 25 mg twice a day and atorvastatin 40 mg daily. Most recent echocardiogram obtained July 2018 reveals mildly impaired LV systolic function with ejection fraction 45%, mild mitral regurgitation and mild tricuspid regurgitation. 03/22/2021 Patient examined this morning at the bedside. Patient denies chest pain or pressure. Denies shortness of breath. Telemetry reveals sinus mechanism. No further episodes of atrial fibrillation. No signs of bleeding. Hemoglobin stable. Blood pressure 145/71. Echocardiogram completed revealed ejection fraction 40-45%, basal inferior, apical anterior, apical lateral, apical inferior, and apical septal LV wall hypokinesis. Trace to mild mitral regurgitation. Mild tricuspid regurgitation. PHYSICAL EXAM: VITAL SIGNS: Reviewed. GENERAL: Well-developed in no acute distress. NECK: Supple. No JVD or thyromegaly LUNGS: Respirations even and unlabored. Lungs essentially clear to auscultation bilaterally. HEART: Regular rate and rhythm. S1 and S2 heard. Systolic murmur noted. EXTREMITIES: Normal range of motion. No clubbing or cyanosis. Peripheral pulses intact. No lower extremity edema ASSESSMENT: Generalized weakness Possible gastric bleeding Paroxysmal atrial fibrillation, brief. New onset Leukocytosis Lactic acidosis Hypomagnesemia Coronary artery disease with previous PCI to LAD and circumflex Ischemic cardiomyopathy Chronic systolic heart failure, clinically euvolemic Hypertension Dyslipidemia PLAN: Continue telemetry monitoring Continue metoprolol 75 mg twice a day Continue Cozaar 25 mg daily Continue Lipitor 40 mg at night Continue to monitor hemoglobin No anticoagulation at this time secondary to abnormal CT results. Patient is on Protonix twice a day. Further recommendations pending patient's course Nurse practitioner note has been reviewed by physician. Signing provider agrees with the documented findings, assessment, and plan of care. Objective - Vital Signs Vital signs: Vital Signs Temp 98.7 F 03/22/21 04:37 Pulse 87 03/22/21 04:37 Resp 18 03/22/21 04:37 BP 145/71 03/22/21 04:37 Pulse Ox 96 03/22/21 04:37 Intake & Output 03/21/21 03/22/21 03/22/21 18:59 06:59 18:59 Intake Total 1410 240 Output Total 800 2020 Balance 610 -2020 240 Weight 80.5 kg Intake: Intake, IV Titration 690 Amount Magnesium Sulfate-D5w Pmx 200 1 gm In Dextrose/Water 1 100ml.bag @ 100 mls/hr IVPB Q1H [facility] Rx#: [id number] Piperacillin-Tazobactam 3 100 .375 gm In Sodium Chloride 0.9% 100 ml @ 25 mls/hr IVPB Q8HR [facility] Rx# :[id number] Sodium Chloride 0.9% 1, 390 000 ml @ 75 mls/hr IV . [id number] [facility] Rx#:[id number] Oral 720 240 Output: Urine 800 2020 Other: Voiding Method Urinal Urinal # Voids 2 - Labs CBC & Chem 7: 03/22/21 08:25 03/21/21 03:06 Labs: Abnormal Lab Results - Last 24 Hours (Table) 03/21/21 03/21/21 03/22/21 Range/Units 18:20 18:20 08:25 RBC 4.29 L (4.30-5.90) m/uL Neutrophils # 7.9 H (1.3-7.7) k/uL C-Reactive Protein 2.2 H (<1.0) mg/dL Procalcitonin 0.15 H (0.02-0.09) ng/mL Microbiology - Last 24 Hours (Table) 03/20/21 11:58 Blood Culture - Preliminary Blood No Growth after 24 hours 03/20/21 12:04 Blood Culture - Preliminary Blood No Growth after 24 hours
[2021-03-22] MEDS: FLUTICASONE 50MCG/SPRAY NASAL 16GM EA NOSTRIL SCH (11:10)
[2021-03-22] MEDS: LOSARTAN 25 MG TAB PO SCH (12:52)
[2021-03-22] MEDS ORDERED: VANCOMYCIN TROUGH DUE 1 EACH MISC MISCELLANE ONE (14:00)
--- NOTE | 2021-03-22 17:34 | P.PN ---
Subjective Progress Note Date: 03/22/21 Principal diagnosis: Lactic acidosis Dehydration 85-year-old male was admitted to the hospital for severe lactacidosis, dehydration, elevated troponins, and generalized weakness. Patient has significant medical history of hypertension, history of myocardial infarction, ischemic cardiomyopathy, spinal stenosis, BPH, hyperlipidemia, coronary artery disease with history of cardiac stents 3, and several other comorbidities. Patient was initiated on broad-spectrum IV antibiotics, syntonic fluid boluses for elevated lactic acids. Blood cultures and urine culture was obtained with no growth at this time. CT abdomen and pelvis shows possible mild diverticulitis. Several consultants following patient's care. 03/22/2021 Patient seen and examined at bedside. Patient resting comfortably in bed with no acute signs of distress. Patient endorses generalized weakness and ex ertional shortness of breath. Reviewed vital signs and diagnostic testing. Awaiting on a.m. labs. Vital signs stable throughout the night. Objective - Vital Signs Vital signs: Vital Signs Temp 97.4 F L 03/22/21 16:00 Pulse 67 03/22/21 16:00 Resp 18 03/22/21 16:00 BP 124/57 03/22/21 16:00 Pulse Ox 94 L 03/22/21 16:00 Intake & Output 03/21/21 03/22/21 03/22/21 18:59 06:59 18:59 Intake Total 1410 480 Output Total 800 2020 700 Balance 610 -2020 -220 Weight 80.5 kg Intake: Intake, IV Titration 690 Amount Magnesium Sulfate-D5w Pmx 200 1 gm In Dextrose/Water 1 100ml.bag @ 100 mls/hr IVPB Q1H [facility] Rx#: [id number] Piperacillin-Tazobactam 3 100 .375 gm In Sodium Chloride 0.9% 100 ml @ 25 mls/hr IVPB Q8HR [facility] Rx# :[id number] Sodium Chloride 0.9% 1, 390 000 ml @ 75 mls/hr IV . [id number] [facility] Rx#:[id number] Oral 720 480 Output: Urine 800 2020 700 Other: Voiding Method Urinal Urinal Urinal # Voids 2 - Constitutional General appearance: Present: cooperative, no acute distress - EENT Eyes: Present: EOMI, PERRLA ENT: Present: hard of hearing Ears: bilateral: normal - Neck Carotids: bilateral: upstroke normal Thyroid: bilateral: normal size - Respiratory Respiratory: bilateral: CTA (Anterior posterior lung lopez) - Cardiovascular Heart rate: 87 Rhythm: regular Heart sounds: normal: S1, S2 - Peripheral pulses radial pulse Peripheral Pulses: bilateral: Normal dorsalis pedis Peripheral Pulses: bilateral: Normal - Gastrointestinal General gastrointestinal: Present: normal bowel sounds - Integumentary Integumentary: Present: normal turgor - Neurologic Neurologic: Present: CNII-XII intact - Musculoskeletal Musculoskeletal: Present: generalized weakness - Psychiatric Psychiatric: Present: A&O x's 3, appropriate affect, intact judgment & insight - Allied health notes Allied health notes reviewed: nursing - Labs CBC & Chem 7: 03/22/21 08:25 03/22/21 08:25 Labs: Abnormal Lab Results - Last 24 Hours (Table) 03/21/21 03/21/21 03/22/21 Range/Units 18:20 18:20 08:25 RBC 4.29 L (4.30-5.90) m/uL Neutrophils # 7.9 H (1.3-7.7) k/uL Chloride (98-107) mmol/L Glucose (74-99) mg/dL C-Reactive Protein 2.2 H (<1.0) mg/dL Total Protein (6.3-8.2) g/dL Albumin (3.5-5.0) g/dL Procalcitonin 0.15 H (0.02-0.09) ng/mL 03/22/21 Range/Units 08:25 RBC (4.30-5.90) m/uL Neutrophils # (1.3-7.7) k/uL Chloride 108 H (98-107) mmol/L Glucose 130 H (74-99) mg/dL C-Reactive Protein (<1.0) mg/dL Total Protein 5.8 L (6.3-8.2) g/dL Albumin 3.1 L (3.5-5.0) g/dL Procalcitonin (0.02-0.09) ng/mL Microbiology - Last 24 Hours (Table) 03/20/21 11:58 Blood Culture - Preliminary Blood No Growth after 48 hours 03/20/21 12:04 Blood Culture - Preliminary Blood No Growth after 48 hours Assessment and Plan Assessment: Lactic acidosis Dehydration Generalized weakness Possible mild diverticulitis Mildly elevated troponins Hypertension History of myocardial infarction History of ischemic cardiomyopathy with recent echocardiogram ejection fraction of 40-45% History of spinal stenosis Dyslipidemia Coronary artery disease with history of cardiac cath 3 stents Full code Plan: Lactic acidosis, continue isotonic fluids at 75 ML's an hour Dehydration/generalized weakness continue isotonic fluids at 75 ML's an hour Possible mild diverticulitis continue Zosyn Continue home medications Continue medical management Further recommendations to come based on patient's clinical condition Hopeful discharge in 24-48 hours Time with Patient: Greater than 30
--- NOTE | 2021-03-22 18:42 | PN ---
PROGRESS NOTE DATE OF SERVICE: 03/22/2021 REASON FOR FOLLOWUP: Possible pneumonia/diverticulitis. INTERVAL HISTORY: The patient is afebrile. The patient is currently feeling better. He is breathing comfortably on room air. Patient denies having any chest pain, shortness continue or cough. No abdominal pain or diarrhea. PHYSICAL EXAMINATION: Blood pressure 124/57, pulse of 67, temperature 97.4. He is 94% on room air. General description is an elderly male up in the bed in no distress. Respiratory system: Unlabored breathing, decreased breath sounds at the base, no wheeze. Heart S1, S2. Regular rate and rhythm. Abdomen soft, no tenderness. LABS: Hemoglobin 13, white count 9.9, BUN of 17 and creatinine 1.04, ( ) 0.15. DIAGNOSTIC IMPRESSION AND PLAN: Patient with leukocytosis, fever, weakness, concern for possible diverticulitis and pneumonia ( ) . The patient is covered with Zosyn, has shown overall improvement, to continue while inpatient. Transition to oral antibiotic on discharge. Continue supportive care. MMODL / IJN: [id number] /
[2021-03-22] MEDS: ATORVASTATIN 40 MG TAB PO SCH (20:20)
[2021-03-23 09:44] LABS: Calcium 8.7 mg/dL (8.4-10.2); Total Bilirubin 0.5 mg/dL (0.2-1.3); Total Protein 5.7 g/dL (6.3-8.2)
[2021-03-23 09:48] LABS: Basophils # (A) 0.1 k/uL (0-0.2); Basophils % (A) 1 %; Eosinophils # (A) 0.2 k/uL (0-0.7); Eosinophils % (A) 2 %; HCT 40.1 % (39.0-53.0); HGB 13.2 gm/dL (13.0-17.5); Lymphocytes # (A) 1.3 k/uL (1.0-4.8); Lymphocytes % (A) 17 %; MCH 31.5 pg (25.0-35.0); MCV 95.5 fL (80.0-100.0); Mean Platelet Volume 7.8; Monocytes # (A) 0.4 k/uL (0-1.0); Monocytes % (A) 5 %; Neutrophils # (A) 5.8 k/uL (1.3-7.7); Neutrophils % (A) 73 %; Platelet Count 212 k/uL (150-450); RDW 13.7 % (11.5-15.5); WBC 7.9 k/uL (3.8-10.6)
[2021-03-23] MEDS: PANTOPRAZOLE 40 MG/10 ML VIAL IV SCH (09:49)
[2021-03-23] MEDS: METOPROLOL TARTRATE 25 MG TAB PO SCH (09:49)
[2021-03-23] MEDS: PIPERACILLIN-TAZOBACTAM 3.375 GM in SODIUM CHLORIDE 0.9% 100 ML IVPB SCH (09:49)
[2021-03-23] MEDS: ENOXAPARIN 40 MG/0.4 ML SYRINGE SQ SCH (09:50)
[2021-03-23] MEDS: FLUTICASONE 50MCG/SPRAY NASAL 16GM EA NOSTRIL SCH (09:50)
--- NOTE | 2021-03-23 11:38 | P.PN ---
Subjective Progress Note Date: 03/23/21 HISTORY OF PRESENT ILLNESS: This is a pleasant 85-year-old male past medical history significant for coronary artery disease s/p PCI LAD and circumflex 2013 and 2014, ischemic cardiomyopathy, chronic systolic heart failure, hypertension and dyslipidemia. He follows in the office with Dr Alford. We have been asked to see in consultation for palpitations and weakness. He states yesterday while laying in bed he started feeling very weak, tired and lightheaded like he was going to pass out. He felt some associated palpitations, nausea and vomiting. He states it felt like his heart was racing. The symptoms continued to progress prompting him to call 911. EKG on arrival revealed sinus mechanism heart rate of 95 inferior Q wave and poor R-wave progression, consistent with previous EKGs. Telemetry tracings reviewed. Last evening he had an episode of paroxysmal atrial fibrillation that was very brief in nature and spontaneously converted to sinus. He does recall feeling dizzy last evening. He states again this morning while laying in bed he had similar episode of dizziness and palpitations. Telemetry tracings this morning were unremarkable and reveal sinus mechanism. He has barely touched his breakfast and he states it is because after he eats he gets epigastric pain. Chest x-ray reveals subsegmental atelectasis at the lung bases. Brain CT unremarkable. CT of abdomen and pelvis revealed high density material layering in the gastric lumen with irregularity in the posterior gastric wall, correlate for acute gastric hemorrhage/ulcer. Laboratory data reviewed, WBC on admission 14 repeat today 11.4, hemoglobin 13.1, platelets 206, sodium 134, potassium 4.9, creatinine 0.89, peak lactic acid 6. 8 repeat today 2.0, 2 troponins negative, third 0.069, TSH 0.382 and magnesium 1.5. Current daily cardiac medications include Aldactone 25 mg daily, Lopressor 50 mg twice a day, losartan 25 mg twice a day and atorvastatin 40 mg daily. Most recent echocardiogram obtained July 2018 reveals mildly impaired LV systolic function with ejection fraction 45%, mild mitral regurgitation and mild tricuspid regurgitation. 03/22/2021 Patient examined this morning at the bedside. Patient denies chest pain or pressure. Denies shortness of breath. Telemetry reveals sinus mechanism. No further episodes of atrial fibrillation. No signs of bleeding. Hemoglobin stable. Blood pressure 145/71. Echocardiogram completed revealed ejection fraction 40-45%, basal inferior, apical anterior, apical lateral, apical inferior, and apical septal LV wall hypokinesis. Trace to mild mitral regurgitation. Mild tricuspid regurgitation. 03/23/2021 Patient examined this morning. He is sitting on the side of the bed. He denies chest pain or pressure. Denies shortness of breath. Telemetry reveals sinus mechanism. No signs of GI bleeding noted. Hemoglobin 13.3. Blood pressure improved today. 136/65. PHYSICAL EXAM: VITAL SIGNS: Reviewed. GENERAL: Well-developed in no acute distress. NECK: Supple. No JVD or thyromegaly LUNGS: Respirations even and unlabored. Lungs essentially clear to auscultation bilaterally. HEART: Regular rate and rhythm. S1 and S2 heard. Systolic murmur noted. EXTREMITIES: Normal range of motion. No clubbing or cyanosis. Peripheral pulses intact. No lower extremity edema ASSESSMENT: Generalized weakness Possible gastric bleeding Paroxysmal atrial fibrillation, brief. New onset Leukocytosis Lactic acidosis Hypomagnesemia Coronary artery disease with previous PCI to LAD and circumflex Ischemic cardiomyopathy Chronic systolic heart failure, clinically euvolemic Hypertension Dyslipidemia PLAN: Continue telemetry monitoring Continue Cozaar, metoprolol, and Lipitor No anticoagulation at this time secondary to abnormal CT results. Patient is on Protonix twice a day. Stable for discharge home today from a cardiac standpoint Follow up outpatient with Dr. Alford We will sign off. Please reconsult if needed. Nurse practitioner note has been reviewed by physician. Signing provider agrees with the documented findings, assessment, and plan of care. Objective - Vital Signs Vital signs: Vital Signs Temp 98.3 F 03/23/21 04:00 Pulse 72 03/23/21 04:00 Resp 17 03/23/21 04:00 BP 136/65 03/23/21 04:00 Pulse Ox 94 L 03/23/21 04:00 Intake & Output 03/22/21 03/23/21 03/23/21 18:59 06:59 18:59 Intake Total 480 Output Total 700 850 Balance -220 -850 Weight 82 kg Intake: Oral 480 Output: Urine 700 850 Other: Voiding Method Urinal Urinal - Labs CBC & Chem 7: 03/23/21 08:17 03/23/21 08:17 Labs: Microbiology - Last 24 Hours (Table) 03/20/21 11:58 Blood Culture - Preliminary Blood No Growth after 48 hours 03/20/21 12:04 Blood Culture - Preliminary Blood No Growth after 48 hours
[2021-03-23 13:05] VITALS: BP 126/60; PULSE 61; RESP 18; TEMP 97.8
[2021-03-23] MEDS: LOSARTAN 25 MG TAB PO SCH (13:08)
--- NOTE | 2021-03-23 16:32 | CDI ---
Documentation Clarification Form Date: 03/23/2021 04:15:47 PM From: Laly Brar RN, CCDS Admit Date: 03/21/2021 07:41:00 AM Patient Name: Otis Andres Visit Number: [id number] Discharge Date: ATTENTION: The Clinical Documentation Specialists (CDI) and [facility] Coding Staff appreciate your assistance in clarifying documentation. Please respond to the clarification below the line at the bottom and electronically sign. The CDI & [facility] Coding staff will review the response and follow-up if needed. Please note: Queries are made part of the Legal Health Record. If you have any questions, please contact the author of this message via ITS. Dr. Travon Larios The patient presented with severe dizziness and extreme fatigue, lactic acidosis. H/P assessment Sepsis cannot be ruled out although source is not clear. Additional clarification regarding the etiology/cause of the clinical indicators is requested. History/Risk Factors: Hypertension [place] BPH, Clinical Indicators: 85-year-old female present to ED with complaints of extremely fatigued cold and clammy extremities. She was having nausea and vomiting. 03/20 WBC: 9.7, 14.0 03/20 Lactic acid: 4.3, 7.5, 6.8, 3.7, and 2.6 03/20 Blood cultures: No growth after 144 hours 03/20 @ 07:00 Vital signs: 157/82 103 17 96.1 97 % RA Treatment: 03/22 ID progress note Leukocytosis fever, weakness concern for possible diverticulitis and pneumonia. Zosyn 3.375 GM IV Q 8 HR Incentive spirometry per protocol .9NS 1,000 IV Bolus x2 Vancomycin 1,500MG IVPB Q 16 H (PTD) 03/20-03/21) Rocephin 2 GM IVPB (03/20) In your professional opinion, please clarify if these findings signify one of the following conditions: [ ] Sepsis POA [ ] Sepsis ruled out [ ] Other, please specify [ x ] Unable to determine SIRS Criteria: 2 or more of the following may indicate SIRS -Temperature < 96.8F (36C) or > 101.0F (38.3C) -Heart Rate > 90 bpm -Respiratory Rate > 20 breaths/min or PaCO2 < 32 mmHg -White Blood Cell Count > 12,000 or < 4,000 cells/mm3 or > 10% bands (Template Last Reviewed: September 2020) MTDD
--- NOTE | 2021-03-23 17:40 | PN ---
PROGRESS NOTE DATE OF SERVICE: 03/23/2021 REASON FOR FOLLOWUP: Possible diverticulitis. INTERVAL HISTORY: The patient is afebrile. The patient is feeling better, breathing comfortably. The patient denies having any chest pain or shortness of breath or cough. No abdominal pain or vomiting or diarrhea. PHYSICAL EXAMINATION: On examination, blood pressure is 123/73 with a pulse of 61, temperature 97.8. He is 95% on room air. GENERAL DESCRIPTION: Elderly male up in the bed in no distress. RESPIRATORY SYSTEM: Unlabored breathing. Clear to auscultation. HEART: S1, S2. Regular rate and rhythm. ABDOMEN: Soft. No tenderness. LABS: Hemoglobin is 13.1, white count 7.9 with a BUN of 14, creatinine 1.09. DIAGNOSTIC IMPRESSION AND PLAN: Patient admitted to hospital with sweats and weakness in this patient with abnormal CT concerning for possible diverticulitis. Overall improvement on Zosyn; to continue. Transition to oral Augmentin on discharge for a short course and close outpatient followup. MMODL / IJN: [id number] /
--- NOTE | 2021-03-24 06:45 | P.DS ---
Providers Date of admission: 03/21/21 07:41 Expected date of discharge: 03/23/21 Attending physician: Travon Larios Consults: 03/20/21 13:27 Consult Physician Urgent Consulting Provider: Joselito Thao Consult Reason/Comments: positive trop Do you want consulting provider notified?: Yes 03/21/21 11:09 Consult Physician Routine Consulting Provider: Van Majano Consult Reason/Comments: Possible sepsis source unknown Do you want consulting provider notified?: Yes Primary care physician: Travon Larios Hospital Course: 85-year-old male was admitted to the hospital for severe lactacidosis, dehydration, elevated troponins, and generalized weakness. Patient has significant medical history of hypertension, history of myocardial infarction, ischemic cardiomyopathy, spinal stenosis, BPH, hyperlipidemia, coronary artery disease with history of cardiac stents 3, and several other comorbidities. Patient was initiated on broad-spectrum IV antibiotics, syntonic fluid boluses for elevated lactic acids. Blood cultures and urine culture was obtained with no growth at this time. CT abdomen and pelvis shows possible mild diverticulitis. Several consultants follow patient's case throughout hospital stay. Patient lactic acidosis was improved with IV hydration, dehydration was resolved as well, elevated troponins secondary to lactic acidosis. Patient will be discharged home with guarded prognosis due to multiple comorbidities Assessment: Lactic acidosis Dehydration Generalized weakness Possible mild diverticulitis Mildly elevated troponins Hypertension History of myocardial infarction History of ischemic cardiomyopathy with recent echocardiogram ejection fraction of 40-45% History of spinal stenosis Dyslipidemia Coronary artery disease with history of cardiac cath 3 stents Full code Final diagnosis Lactic acidosis Dehydration Generalized weakness Mild diverticulitis Health Concerns: Multiple comorbidities Complexity of medical treatment plan Pertinent Studies: Serial chest x-rays CT abdomen and pelvis Echocardiogram Procedures: No procedures performed during hospital stay Patient Condition at Discharge: Fair Plan - Discharge Summary Discharge Rx Participant: No New Discharge Prescriptions: New Amoxicillin/Potassium Clav [Augmentin 875-125 Tablet] 1 tab PO BID 5 Days #10 tab Continue Metoprolol Tartrate [Lopressor] 50 mg PO BID #180 tab Nitroglycerin Sl Tabs [Nitrostat] 0.4 mg SUBLINGUAL Q5M PRN #25 tab PRN Reason: Chest Pain Spironolactone [Aldactone] 25 mg PO DAILY #90 tab Atorvastatin [Lipitor] 40 mg PO HS Fluticasone Nasal [place] [Flonase Nasal [place]] 2 spr EA NOSTRIL DAILY Losartan Potassium [Cozaar] 25 mg PO BID Discharge Medication List Metoprolol Tartrate [Lopressor] 50 mg PO BID #180 tab 05/22/14 [Rx] Nitroglycerin Sl Tabs [Nitrostat] 0.4 mg SUBLINGUAL Q5M PRN #25 tab 05/22/14 [Rx] Spironolactone [Aldactone] 25 mg PO DAILY #90 tab 05/22/14 [Rx] Atorvastatin [Lipitor] 40 mg PO HS 06/06/17 [History] Fluticasone Nasal [place] [Flonase Nasal [place]] 2 spr EA NOSTRIL DAILY 03/20/21 [History] Losartan Potassium [Cozaar] 25 mg PO BID 03/20/21 [History] Amoxicillin/Potassium Clav [Augmentin 875-125 Tablet] 1 tab PO BID 5 Days #10 tab 03/23/21 [Rx] Follow up Appointment(s)/Referral(s): Travon Larios MD [Primary Care Provider] - 03/28/21 1:20 pm [facility], [NON-STAFF] - Patient Instructions/Handouts: Chest Pain (GEN), Dehydration (GEN), Lactic Acidosis (GEN) Discharge Disposition: HOME WITH HOME HEALTH SERVICES
== END 2021-03-23 16:40 | disposition home health service (06) | DRG 392 ==
LOC: EC 04:59 → 6NMEDSUR 06:39 → 3SCARD 12:37 → OBSVTOIN 03-21 07:41
PROVIDERS: ADMIT Family Medicine; ATTEND Family Medicine
DX: K57.92 Diverticulitis of intestine, part unspecified, without perforation or abscess without bleeding (principal); I50.22 Chronic systolic (congestive) heart failure; J98.11 Atelectasis; E87.2 Acidosis; E86.0 Dehydration; I25.2 Old myocardial infarction; I25.10 Atherosclerotic heart disease of native coronary artery without angina pectoris; Z95.5 Presence of coronary angioplasty implant and graft; I25.5 Ischemic cardiomyopathy; Z82.49 Family history of ischemic heart disease and other diseases of the circulatory system; I11.0 Hypertensive heart disease with heart failure; I48.0 Paroxysmal atrial fibrillation; E83.42 Hypomagnesemia; E78.5 Hyperlipidemia, unspecified; N40.0 Benign prostatic hyperplasia without lower urinary tract symptoms; M48.00 Spinal stenosis, site unspecified; R00.2 Palpitations; E87.5 Hyperkalemia; Z79.82 Long term (current) use of aspirin; Z79.899 Other long term (current) drug therapy
CPT/HCPCS: 36415; 70450; 71045; 71046; 74177; 80053; 81003; 82550; 83605; 83735; 84100; 84145; 84439; 84443; 84484; 85025; 85027; 85610; 85652; 85730; 86140; 87040; 93005; 93306; 96361; 96374; 96375; 99285

== ENCOUNTER 2022-05-25 16:30 | Inpatient (IN) | payer MEDICARE, BC ==
[2022-05-25] MEDS ORDERED: DILTIAZEM 125 MG in SODIUM CHLORIDE 0.9% 100 ML IV SCH (16:45)
[2022-05-25] MEDS ORDERED: SODIUM CHLORIDE 0.9% 1,000 ML IV STA (16:45)
[2022-05-25] MEDS ORDERED: ASPIRIN 81 MG PO STA (16:49)
[2022-05-25] MEDS ORDERED: ENOXAPARIN 100 MG/ML SYRINGE SQ STA (16:57)
--- NOTE | 2022-05-25 17:37 | XR ---
EXAMINATION TYPE: XR chest 2V DATE OF EXAM: 05/25/2022 COMPARISON: Chest x-ray March 21, 2021 HISTORY: Dysrhythmia. TECHNIQUE: Frontal and lateral views of the chest are obtained. FINDINGS: There is chronic parenchymal changes bilaterally without suspicious focal air space opacit y, pleural effusion, or pneumothorax seen. Cardiomegaly is redemonstrated. 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 IMPRESSION: Chronic changes and cardiomegaly without acute pulmonary process. No significant change from prior.
[2022-05-25 17:39] LABS: Basophils # (A) 0.1 k/uL (0-0.2); Basophils % (A) 1 %; Eosinophils # (A) 0.2 k/uL (0-0.7); Eosinophils % (A) 3 %; HCT 42.4 % (39.0-53.0); HGB 14.2 gm/dL (13.0-17.5); Lymphocytes # (A) 1.7 k/uL (1.0-4.8); Lymphocytes % (A) 20 %; MCH 31.2 pg (25.0-35.0); MCHC 33.6 g/dL (31.0-37.0); MCV 92.9 fL (80.0-100.0); Monocytes # (A) 0.6 k/uL (0-1.0); Monocytes % (A) 7 %; Neutrophils # (A) 5.8 k/uL (1.3-7.7); Neutrophils % (A) 67 %; Platelet Count 210 k/uL (150-450); RBC 4.56 m/uL (4.30-5.90); RDW 13.1 % (11.5-15.5); WBC 8.6 k/uL (3.8-10.6)
[2022-05-25 17:50] LABS: Calcium 9.3 mg/dL (8.4-10.2); Magnesium 1.7 mg/dL (1.6-2.3); Potassium 4.1 mmol/L (3.5-5.1); Total Bilirubin 0.3 mg/dL (0.2-1.3); Total Protein 6.7 g/dL (6.3-8.2)
[2022-05-25 17:53] LABS: Appearance,Urine Clear (Clear); Bilirubin,Urine Negative (Negative); Blood,Urine Small (Negative); Color,Urine Light Yellow; Glucose,Urine (UA) Trace (Negative); Ketones,Urine Negative (Negative); Leukocyte Esterase,Urine Moderate (Negative); Mucus,Urine Rare /hpf; Nitrite,Urine Negative (Negative); Protein,Urine Trace (Negative); RBC,Urine 7 /hpf (0-5); Specific Gravity,Urine 1.012 (1.001-1.035); Urobilinogen,Urine <2.0 mg/dL (<2.0); WBC,Urine 24 /hpf (0-5)
[2022-05-25 17:59] LABS: Partial Thromboplastin Time 22.9 sec (22.0-30.0); Prothrombin Time 10.6 sec (9.0-12.0)
--- NOTE | 2022-05-25 18:16 | ED ---
Arrhythmia/Palpitations HPI - General Chief Complaint: Arrhythmia/Palpitations Stated Complaint: AFIB Time Seen by Provider: 05/25/22 16:34 Source: EMS Mode of arrival: EMS Limitations: no limitations - History of Present Illness Initial Comments: Patient is a 87-year-old male presenting to the emergency room via EMS with complaints of palpitations and racing heart rate. He reports that he was doing some stair exercises at home when the palpitations began. EMS found him to be in atrial fibrillation with a rapid heart rate of approximately 160; he did not receive any intervention in the ambulance however his heart rate has reduced to a variable rate between 120s and 140s since arrival. He denies any other associated symptoms including any chest pain, shortness of breath, headaches, dizziness, abdominal pain, nausea, vomiting, diarrhea, fevers or chills. He states that he has never been in atrial fibrillation before and does not take any anticoagulants. He has a cardiovascular history significant for CAD with multiple stents and follows with cardiology regularly. In addition to his CAD history he has a past medical history significant for hypertension and hyperlipidemia. - Related Data Home Medications Medication Instructions Recorded Confirmed Atorvastatin [Lipitor] 40 mg PO HS 06/06/17 05/25/22 Losartan Potassium [Cozaar] 25 mg PO BID 03/20/21 05/25/22 Aspirin EC [Ecotrin Low Dose] 81 mg PO HS 05/25/22 05/25/22 Cholecalciferol [Vitamin D3 (25 25 mcg PO DAILY 05/25/22 05/25/22 Mcg = 1000 Iu)] Previous Rx's Medication Instructions Recorded Metoprolol Tartrate [Lopressor] 50 mg PO BID #180 tab 05/22/14 Nitroglycerin Sl Tabs [Nitrostat] 0.4 mg SUBLINGUAL Q5M PRN #25 tab 05/22/14 Spironolactone [Aldactone] 25 mg PO DAILY #90 tab 05/22/14 Allergies Allergy/AdvReac Type Severity Reaction Status Date / Time No Known Allergies Allergy Verified 05/25/22 18:12 Review of Systems ROS Statement: Those systems with pertinent positive or pertinent negative responses have been documented in the HPI. ROS Other: All systems not noted in ROS Statement are negative. Past Medical History Past Medical History: Coronary Artery Disease (CAD), Hyperlipidemia, Hypertension, Myocardial Infarction ([place]) Additional Past Medical History / Comment(s): Anterior wall [place] 05/18/14, isc hemic cardiomyopathy, spinal stenosis, numbness to bilateral legs and feet, BPH, pt denies hyperlipidemia-takes lipitor. Last Myocardial Infarction Date:: 05/18/2014 History of Any Multi-Drug Resistant Organisms: None Reported Past Surgical History: Heart Catheterization, Heart Catheterization With Stent Additional Past Surgical History / Comment(s): HEART CATH WITH 3 STENTS 05/18/14 (2 stents to LAD) and 06/03/14 (1 stent to obtuse marginal), cardiac cath 2014, colonoscopy-normal Past Anesthesia/Blood Transfusion Reactions: No Reported Reaction Additional Past Anesthesia/Blood Transfusion Reaction / Comment(s): Pt states he has never had general anesthesia. He also has never recieved blood. Date of Last Stent Placement:: 06/03/14 Past Psychological History: No Psychological Hx Reported Smoking Status: Never smoker Past Alcohol Use History: None Reported Past Drug Use History: None Reported - Past Family History Father Family Medical History: No Reported History Additional Family Medical History / Comment(s): Father in his 80's. Mother Family Medical History: Coronary Artery Disease (CAD) Additional Family Medical History / Comment(s): Mother at age 63yrs and pt believes it may have been due to a heart problem. General Exam Limitations: no limitations General appearance: alert, in no apparent distress Head exam: Present: atraumatic, normocephalic, normal inspection Eye exam: Present: normal appearance, PERRL, EOMI. Absent: scleral icterus, conjunctival injection, periorbital swelling ENT exam: Present: normal exam, mucous membranes moist Neck exam: Present: normal inspection. Absent: lymphadenopathy Respiratory exam: Present: normal lung sounds bilaterally. Absent: respiratory distress, wheezes, rales, rhonchi, stridor Cardiovascular Exam: Present: tachycardia, irregular rhythm, normal heart sounds. Absent: systolic murmur, diastolic murmur, rubs, gallop, clicks GI/Abdominal exam: Present: soft, normal bowel sounds. Absent: distended, tenderness, guarding, rebound, rigid Extremities exam: Present: normal inspection. Absent: pedal edema, joint swelling Back exam: Present: normal inspection Neurological exam: Present: alert, oriented X3, CN II-XII intact Psychiatric exam: Present: normal affect, normal mood Skin exam: Present: warm, dry, intact, normal color. Absent: rash Course Vital Signs 05/25/22 05/25/22 05/25/22 16:31 17:00 17:30 Pulse Rate 120 H 110 H 112 H Respiratory 20 16 18 Rate Blood Pressure 94/75 94/75 132/73 O2 Sat by Pulse 98 96 98 Oximetry 05/25/22 18:00 Pulse Rate 111 H Respiratory 20 Rate Blood Pressure 129/70 O2 Sat by Pulse 97 Oximetry Medical Decision Making - Medical Decision Making 87-year-old male presenting to the emergency room via EMS with palpitations and new onset atrial fibrillation with rapid ventricular rate. No acute distress blood pressure lower but stable with a systolic BP of 94. Will start workup for infectious process or electrolyte derangement for underlining etiology of atrial fibrillation along with coagulated and troponin. Will check CBC, CMP, troponin, d-dimer, and TSH along with repeat EKG and chest x-ray. Will start on Cardizem drip with cautious titration for a heart rate goal less than 110 and give a subcutaneous dose of Lovenox 1 mg/kg. CBC normal, coags normal, and d-dimer negative, troponin negative, TSH still pending, CMP reveals mild dehydration with a BUN of 31 and creatinine of 1.34. Will give gentle hydration. Chest x-ray negative for acute cardiopulmonary disease. No indication for further diagnostic testing or imaging. Heart rate continues to be variable with Cardizem titrated to 5 mg to keep rate consistently less than 110. Blood pressure improved with gentle hydration. No need for further boluses are continued IV fluids. Patient will need admission for observation for audiology evaluation and rate control along with determination regarding continuation of anticoagulation. Patient's primary care provider Dr. Travon Larios with [facility] covering for admissions. Dr. Gabriel media sales consultant for [facility] notified of patient in findings as reviewed above. Admission for new onset atrial fibrillation with RVR. Orders placed for cardiology consult along with admission orders to Dr. Gabriel. Case discussed with Dr. Hancock - Lab Data Result diagrams: 05/25/22 17:25 05/25/22 17:25 Lab Results 05/25/22 05/25/22 05/25/22 Range/Units 17:25 17:25 17:25 WBC 8.6 (3.8-10.6) k/uL RBC 4.56 (4.30-5.90) m/uL Hgb 14.2 (13.0-17.5) gm/dL Hct 42.4 (39.0-53.0) % MCV 92.9 (80.0-100.0) fL MCH 31.2 (25.0-35.0) pg MCHC 33.6 (31.0-37.0) g/dL RDW 13.1 (11.5-15.5) % Plt Count 210 (150-450) k/uL MPV 9.0 Neutrophils % 67 % Lymphocytes % 20 % Monocytes % 7 % Eosinophils % 3 % Basophils % 1 % Neutrophils # 5.8 (1.3-7.7) k/uL Lymphocytes # 1.7 (1.0-4.8) k/uL Monocytes # 0.6 (0-1.0) k/uL Eosinophils # 0.2 (0-0.7) k/uL Basophils # 0.1 (0-0.2) k/uL PT 10.6 (9.0-12.0) sec INR 1.0 (<1.2) APTT 22.9 (22.0-30.0) sec D-Dimer 0.53 (<0.60) mg/L FEU Sodium (137-145) mmol/L Potassium (3.5-5.1) mmol/L Chloride (98-107) mmol/L Carbon Dioxide (22-30) mmol/L Anion Gap mmol/L BUN (9-20) mg/dL Creatinine (0.66-1.25) mg/dL Est GFR (CKD-EPI)AfAm (>60 ml/min/1.73 sqM) Est GFR (CKD-EPI)NonAf (>60 ml/min/1.73 sqM) Glucose (74-99) mg/dL Calcium (8.4-10.2) mg/dL Magnesium (1.6-2.3) mg/dL Total Bilirubin (0.2-1.3) mg/dL AST (17-59) U/L ALT (4-49) U/L Alkaline Phosphatase (38-126) U/L Troponin I (0.000-0.034) ng/mL Total Protein (6.3-8.2) g/dL Albumin (3.5-5.0) g/dL TSH (0.465-4.680) mIU/L Urine Color Light Yellow Urine Appearance Clear (Clear) Urine pH 6.0 (5.0-8.0) Ur Specific [place] 1.012 (1.001-1.035) Urine Protein Trace H (Negative) Urine Glucose (UA) Trace H (Negative) Urine Ketones Negative (Negative) Urine Blood Small H (Negative) Urine Nitrite Negative (Negative) Urine Bilirubin Negative (Negative) Urine Urobilinogen <2.0 (<2.0) mg/dL Ur Leukocyte Esterase Moderate H (Negative) Urine RBC 7 H (0-5) /hpf Urine WBC 24 H (0-5) /hpf Urine Mucus Rare H (None) /hpf 05/25/22 05/25/22 Range/Units 17:25 17:25 WBC (3.8-10.6) k/uL RBC (4.30-5.90) m/uL Hgb (13.0-17.5) gm/dL Hct (39.0-53.0) % MCV (80.0-100.0) fL MCH (25.0-35.0) pg MCHC (31.0-37.0) g/dL RDW (11.5-15.5) % Plt Count (150-450) k/uL MPV Neutrophils % % Lymphocytes % % Monocytes % % Eosinophils % % Basophils % % Neutrophils # (1.3-7.7) k/uL Lymphocytes # (1.0-4.8) k/uL Monocytes # (0-1.0) k/uL Eosinophils # (0-0.7) k/uL Basophils # (0-0.2) k/uL PT (9.0-12.0) sec INR (<1.2) APTT (22.0-30.0) sec D-Dimer (<0.60) mg/L FEU Sodium 139 (137-145) mmol/L Potassium 4.1 (3.5-5.1) mmol/L Chloride 101 (98-107) mmol/L Carbon Dioxide 24 (22-30) mmol/L Anion Gap 14 mmol/L BUN 31 H (9-20) mg/dL Creatinine 1.34 H (0.66-1.25) mg/dL Est GFR (CKD-EPI)AfAm 54 (>60 ml/min/1.73 sqM) Est GFR (CKD-EPI)NonAf 47 (>60 ml/min/1.73 sqM) Glucose 159 H (74-99) mg/dL Calcium 9.3 (8.4-10.2) mg/dL Magnesium 1.7 (1.6-2.3) mg/dL Total Bilirubin 0.3 (0.2-1.3) mg/dL AST 36 (17-59) U/L ALT 40 (4-49) U/L Alkaline Phosphatase 84 (38-126) U/L Troponin I <0.012 (0.000-0.034) ng/mL Total Protein 6.7 (6.3-8.2) g/dL Albumin 4.0 (3.5-5.0) g/dL TSH 1.750 (0.465-4.680) mIU/L Urine Color Urine Appearance (Clear) Urine pH (5.0-8.0) Ur Specific [place] (1.001-1.035) Urine Protein (Negative) Urine Glucose (UA) (Negative) Urine Ketones (Negative) Urine Blood (Negative) Urine Nitrite (Negative) Urine Bilirubin (Negative) Urine Urobilinogen (<2.0) mg/dL Ur Leukocyte Esterase (Negative) Urine RBC (0-5) /hpf Urine WBC (0-5) /hpf Urine Mucus (None) /hpf - EKG Data EKG Comments: Atrial fibrillation with rapid ventricular response, probable anterior myocardial infarction probably old, probable inferior myocardial infarction, pr obably old, ventricular rate 129 bpm, ID interval * ms, QRS duration 116 ms, QT/QT 300/376 ms, PRT axes*, 74, -21 - Radiology Data Radiology results: report reviewed, image reviewed Two-view chest x-ray impression chronic changes and cardiomegaly without acute pulmonary process. No significant change from prior exam 03/26/2021 Disposition Clinical Impression: Atrial fibrillation with rapid ventricular response Disposition: ADMITTED IP TO THIS HOSP Condition: Stable Is patient prescribed a controlled substance at d/c from ED?: No Referrals: Travon Larios MD [Primary Care Provider] - 1-2 days Time of Disposition: 18:50
[2022-05-25] MEDS ORDERED: NALOXONE 0.4 MG/ML 1 ML VIAL IV PRN (18:49)
[2022-05-25] MEDS ORDERED: NITROGLYCERIN SL TABS 0.4 MG TAB SUBLINGUAL PRN (21:35)
[2022-05-25] MEDS ORDERED: METOPROLOL TARTRATE 25 MG TAB PO STA (21:37)
[2022-05-25] MEDS ORDERED: METOPROLOL TARTRATE 50 MG TAB PO SCH (21:45)
--- NOTE | 2022-05-26 08:24 | P.HPIM ---
History of Present Illness This is a plea presents with palpitation perry 87 years old male with past medical history of Coronary Artery Disease status post stent, Hyperlipidemia, Hypertension,, ischemic cardiomyopathy, spinal stenosis, numbness to bilateral legs and feet, BPH, he is a patient of Dr. Larios Patient states he came to the hospital because his heart rate was beating fast. Patient says his been having this problem for about a week, yesterday he thought of checking his pulse and noticed that there are skipped beats. He got concerned and decided to come to the hospital. Patient has mild lightheadedness on admission but no overt dizziness or syncope. No chest pain. Also patient has chronic increased frequency of urination every 2 hours over the last 2 days he notices every 10 minutes he has to go to [facility]. No dysuria. No abdominal symptoms like pain or vomiting or diarrhea. No fever or weakness or numbness No smoking, alcohol or illicit drugs On admission heart rate was elevated at 120, blood pressure was on the low side thank you 94/75. Currently blood pressure 129/75. On admission creatinine mildly elevated 1.3 compared to baseline 0.8-1.0. Other labs are unremarkable including CBC, INR, liver enzymes and rest of bpm. D-dimer is -0.53. Chest x-ray: Chronic changes with cardiomegaly. No acute process. EKG showing atrial fibrillation's with RVR at 129 Review of Systems Review of systems CONSTITUTIONAL: No fever, no malaise, no fatigue. HEENT: No recent visual problems or hearing problems. Denied any sore throat. CARDIOVASCULAR: No orthopnea, PND, no palpitations, no syncope. PULMONARY: No shortness of breath, no cough, no hemoptysis. GASTROINTESTINAL: No diarrhea, no nausea, no vomiting, no abdominal pain. Normoactive bowel sounds. NEUROLOGICAL: No headaches, no weakness, no numbness. HEMATOLOGICAL: Denies any bleeding or petechiae. GENITOURINARY: Denies any burning micturition, or urgency. MUSCULOSKELETAL/RHEUMATOLOGICAL: Denies any joint pain, swelling, or any muscle pain. ENDOCRINE: Denies any polyuria or polydipsia. Past Medical History Past Medical History: Coronary Artery Disease (CAD), Hyperlipidemia, Hypertension, Myocardial Infarction ([place]) Additional Past Medical History / Comment(s): Anterior wall [place] 05/18/14, ischemic cardiomyopathy, spinal stenosis, numbness to bilateral legs and feet, BPH, pt denies hyperlipidemia-takes lipitor. Last Myocardial Infarction Date:: 05/18/2014 History of Any Multi-Drug Resistant Organisms: None Reported Past Surgical History: Heart Catheterization, Heart Catheterization With Stent Additional Past Surgical History / Comment(s): HEART CATH WITH 3 STENTS 05/18/14 (2 stents to LAD) and 06/03/14 (1 stent to obtuse marginal), cardiac cath 2014, colonoscopy-normal Past Anesthesia/Blood Transfusion Reactions: No Reported Reaction Additional Past Anesthesia/Blood Transfusion Reaction / Comment(s): Pt states he has never had general anesthesia. He also has never recieved blood. Date of Last Stent Placement:: 06/03/14 Past Psychological History: No Psychological Hx Reported Additional Psychological History / Comment(s): Pt resides alone. He is independent. He uses a walker to ambulate due to spinal stenosis making bilateral legs and feet numb. He performs his own ADLs and no longer has any home care. He did use [place] [facility] after his [place] discharge 05/19. He driv [place]. Smoking Status: Never smoker Past Alcohol Use History: None Reported Past Drug Use History: None Reported - Past Family History Father Family Medical History: No Reported History Additional Family Medical History / Comment(s): Father in his 80's. Mother Family Medical History: Coronary Artery Disease (CAD) Additional Family Medical History / Comment(s): Mother at age 63yrs and pt believes it may have been due to a heart problem. Medications and Allergies Home Medications Medication Instructions Recorded Confirmed Type Metoprolol Tartrate [Lopressor] 50 mg PO BID #180 tab 05/22/14 05/25/22 Rx Nitroglycerin Sl Tabs [Nitrostat] 0.4 mg SUBLINGUAL Q5M PRN #25 tab 05/22/14 05/25/22 Rx Spironolactone [Aldactone] 25 mg PO DAILY #90 tab 05/22/14 05/25/22 Rx Atorvastatin [Lipitor] 40 mg PO HS 06/06/17 05/25/22 History Losartan Potassium [Cozaar] 25 mg PO BID 03/20/21 05/25/22 History Aspirin EC [Ecotrin Low Dose] 81 mg PO HS 05/25/22 05/25/22 History Cholecalciferol [Vitamin D3 (25 25 mcg PO DAILY 05/25/22 05/25/22 History Mcg = 1000 Iu)] Allergies Allergy/AdvReac Type Severity Reaction Status Date / Time No Known Allergies Allergy Verified 05/25/22 18:12 Physical Exam Vitals: Vital Signs Temp Pulse Pulse Resp BP BP Pulse Ox 05/26/22 04:30 98 F 91 18 129/75 93 L 05/25/22 23:10 130 H 18 130/81 96 05/25/22 21:30 97.3 F L 110 H 18 149/93 96 05/25/22 18:00 111 H 20 129/70 97 05/25/22 17:30 112 H 18 132/73 98 05/25/22 17:00 110 H 16 94/75 96 05/25/22 16:31 120 H 20 94/75 98 Intake and Output 05/25/22 05/25/22 05/26/22 14:59 22:59 06:59 Intake Total 1.75 Balance 1.75 Intake: Intake, IV Titration 1.75 Amount Diltiazem 125 mg In 1.75 Sodium Chloride 0.9% 100 ml @ 5 MG/HR 5 mls/hr IV .Q24H [facility] Rx#:[id number] Other: Voiding Method Urinal Urinal # Voids 2 2 Weight 92.986 kg GENERAL: The patient is alert and oriented x3, not in any acute distress. Well developed, well nourished. HEENT: Pupils are round and equally reacting to light. EOMI. No scleral icterus. No conjunctival pallor. Normocephalic, atraumatic. No pharyngeal erythema. No thyromegaly. CARDIOVASCULAR: S1 and S2 present. No murmurs, rubs, or gallops. PULMONARY: Chest is clear to auscultation, no wheezing or crackles. ABDOMEN: Soft, nontender, nondistended, normoactive bowel sounds. No palpable organomegaly. MUSCULOSKELETAL: No joint swelling or deformity. EXTREMITIES: No cyanosis, clubbing, or pedal edema. NEUROLOGICAL: Gross neurological examination did not reveal any focal deficits. SKIN: No rashes. no petechiae. Results CBC & Chem 7: 05/25/22 17:25 05/25/22 17:25 Labs: Abnormal Lab Results - Last 24 Hours (Table) 10/20/22 10/20/22 Range/Units 17:25 17:25 BUN 31 H (9-20) mg/dL Creatinine 1.34 H (0.66-1.25) mg/dL Glucose 159 H (74-99) mg/dL Urine Protein Trace H (Negative) Urine Glucose (UA) Trace H (Negative) Urine Blood Small H (Negative) Ur Leukocyte Esterase Moderate H (Negative) Urine RBC 7 H (0-5) /hpf Urine WBC 24 H (0-5) /hpf Urine Mucus Rare H (None) /hpf Microbiology - Last 24 Hours (Table) 05/25/22 17:25 Urine Culture - Preliminary Urine,Voided Thrombosis Risk Factor Assmnt - Choose All That Apply Any of the Below Risk Factors Present?: Yes Each Factor Represents 1 point: Obesity (BMI >25) Other Risk Factors: Yes Each Risk Factor Represents 3 Points: Age 75 years or older Other congenital or acquired thrombophilia - If yes, enter type in comment: Yes Thrombosis Risk Factor Assessment Total Risk Factor Score: 4 Thrombosis Risk Factor Assessment Level: Moderate Risk Assessment and Plan Assessment: A. fib and RVR acute coronary tract infection Acute urinary tract infection Old acute kidney injury History of coronary artery disease status post stenting Disc history of ischemic cardiomyopathy History of spinal stenosis and numbness in bilateral legs and feet History of BPH Start ceftriaxone follow-up urine culture Plan: This is a pleasant 57 years old male who presents with A. fib and RVR, UTI Continue with metoprolol Continue with Cardizem drip patient received 1 dose of Lovenox in ER, we will defer the decision for anticoagulation to cardiology team Check a bladder scan Continue with antibiotic ceftriaxone Labs and medication were reviewed.. Continue same treatment. Continue with symptomatic treatment. Resume home medication. Monitor lytes and vitals. DVT and GI prophylaxis. Further recommendations as per clinical course of the patient DVT prophylaxis: Subcutaneous Lovenox GI Prophylaxis: Pepcid PT/OT: Pending Prognosis is guarded
[2022-05-26] MEDS: METOPROLOL TARTRATE 50 MG TAB PO SCH ×2 (09:14→21:42)
[2022-05-26] MEDS: APIXABAN 5 MG TAB PO SCH ×2 (09:14→21:41)
[2022-05-26] MEDS: CHOLECALCIFEROL 25 MCG (1000 IU) TABLET PO SCH (09:14)
[2022-05-26] MEDS: FAMOTIDINE 20 MG TAB PO SCH ×2 (09:15→09:23)
--- NOTE | 2022-05-26 11:05 | P.CRDCN ---
History of Present Illness Consult date: 05/26/22 History of present illness: HISTORY OF PRESENT ILLNESS: This is a 87-year-old male with a past medical history significant for hypertension, hyperlipidemia, coronary artery disease with previous stenting, and mild cardiomyopathy. Patient follows in the office with Dr. Alford. We have been asked to see the patient in consultation for afib. Patient examined at the bedside. Patient presented to the hospital with a chief complaint of palpitations. He reports he has been feeling these over the past week. Patient was found to be in A. fib with RVR. Patient does not have a history of atrial fibrillation. He was started on an IV Cardizem drip. He subsequently converted to sinus mechanism and is maintaining sinus mechanism this morning. He denies any chest pain or pressure. He denies any shortness of breath. Denies any dizziness or lightheadedness. * EKG reveals A. fib with RVR. Repeat EKG revealed sinus mechanism * Chest xray chronic changes and cardiomegaly without acute pulmonary process. * Laboratory data: WBC 8.6. Hemoglobin 14.2. Platelet count 210. D-dimer 0.53. Sodium 139. Potassium 4.1. BUN 31. Creatinine 1.34. TSH 1.750. * Current home cardiac medications include losartan 25 mg twice a day, metoprolol tartrate 50 mg twice a day, Aldactone 25 mg daily, aspirin 81 mg at night, atorvastatin 40 mg at night * Most recent echocardiogram obtained in October 2019 revealed ejection fraction 47% with mild TR and mild AR * Cardiac catheterization history: 2014 revealing patent stents of the LAD and left circumflex. REVIEW OF SYSTEMS: At the time of my exam: CONSTITUTIONAL: Denies fever or chills. HEENT: Denies blurred vision, vision changes, or eye pain. Denies hemoptysis CARDIOVASCULAR: Denies chest pain. Denies orthopnea. Denies PND. Denies palpitations RESPIRATORY: Denies shortness of breath. GASTROINTESTINAL: Denies abdominal pain. Denies nausea or vomiting. HEMATOLOGIC: Denies bleeding disorders. GENITOURINARY: Denies any blood in urine. SKIN: Denies pruitis. Denies rash. PHYSICAL EXAM: VITAL SIGNS: Reviewed. GENERAL: Well-developed in no acute distress. HEENT: Head is normocephalic. Pupils are equal, round. Sclerae anicteric. Mucous membranes of the mouth are moist. Neck supple. No JVD or thyromegaly LUNGS: Respirations even and unlabored. Lungs essentially clear to auscultation bilaterally. HEART: Regular rate and rhythm. S1 and S2 heard. ABDOMEN: Soft. Nondistended. Nontender. EXTREMITIES: Normal range of motion. No clubbing or cyanosis. Peripheral pulses intact. No lower extremity edema NEUROLOGIC: Awake and alert. Oriented x 3. ASSESSMENT: Palpitations New onset paroxysmal atrial fibrillation with RVR, currently maintaining sinus mechanism Coronary artery disease with previous stenting Mild ischemic cardiomyopathy Hypertension Hyperlipidemia Acute kidney injury PLAN: Obtain 2-D echo to assess cardiac structure and function Hold losartan and Aldactone secondary to acute kidney injury. Repeat lab work in a.m. Discontinue aspirin Begin Eliquis 5mg BID Continue current dose of metoprolol Add amio 200mg BID Further recommendations pending patient course Nurse practitioner note has been reviewed by physician. Signing provider agrees with the documented findings, assessment, and plan of care. Past Medical History Past Medical History: Coronary Artery Disease (CAD), Hyperlipidemia, Hypertension, Myocardial Infarction ([place]) Additional Past Medical History / Comment(s): Anterior wall [place] 05/18/14, ischemic cardiomyopathy, spinal stenosis, numbness to bilateral legs and feet, B PH, pt denies hyperlipidemia-takes lipitor. Last Myocardial Infarction Date:: 05/18/2014 History of Any Multi-Drug Resistant Organisms: None Reported Past Surgical History: Heart Catheterization, Heart Catheterization With Stent Additional Past Surgical History / Comment(s): HEART CATH WITH 3 STENTS 05/18/14 (2 stents to LAD) and 06/03/14 (1 stent to obtuse marginal), cardiac cath 2014, colonoscopy-normal Past Anesthesia/Blood Transfusion Reactions: No Reported Reaction Additional Past Anesthesia/Blood Transfusion Reaction / Comment(s): Pt states he has never had general anesthesia. He also has never recieved blood. Date of Last Stent Placement:: 06/03/14 Past Psychological History: No Psychological Hx Reported Additional Psychological History / Comment(s): Pt resides alone. He is independent. He uses a walker to ambulate due to spinal stenosis making bilateral legs and feet numb. He performs his own ADLs and no longer has any home care. He did use [facility] after his [place] discharge 05/19. He drives. Smoking Status: Never smoker Past Alcohol Use History: None Reported Past Drug Use History: None Reported - Past Family History Father Family Medical History: No Reported History Additional Family Medical History / Comment(s): Father in his 80's. Mother Family Medical History: Coronary Artery Disease (CAD) Additional Family Medical History / Comment(s): Mother at age 63yrs and pt believes it may have been due to a heart problem. Medications and Allergies Home Medications Medication Instructions Recorded Confirmed Type Metoprolol Tartrate [Lopressor] 50 mg PO BID #180 tab 05/22/14 05/25/22 Rx Nitroglycerin Sl Tabs [Nitrostat] 0.4 mg SUBLINGUAL Q5M PRN #25 tab 05/22/14 05/25/22 Rx Spironolactone [Aldactone] 25 mg PO DAILY #90 tab 05/22/14 05/25/22 Rx Atorvastatin [Lipitor] 40 mg PO HS 06/06/17 05/25/22 History Losartan Potassium [Cozaar] 25 mg PO BID 03/20/21 05/25/22 History Aspirin EC [Ecotrin Low Dose] 81 mg PO HS 05/25/22 05/25/22 History Cholecalciferol [Vitamin D3 (25 25 mcg PO DAILY 05/25/22 05/25/22 History Mcg = 1000 Iu)] Allergies Allergy/AdvReac Type Severity Reaction Status Date / Time No Known Allergies Allergy Verified 05/25/22 18:12 Physical Exam Vitals: Vital Signs Temp Pulse Pulse Resp BP BP Pulse Ox 05/26/22 08:00 98.4 F 73 18 134/63 96 05/26/22 04:30 98 F 91 18 129/75 93 L 05/25/22 23:10 130 H 18 130/81 96 05/25/22 21:30 97.3 F L 110 H 18 149/93 96 05/25/22 18:00 111 H 20 129/70 97 05/25/22 17:30 112 H 18 132/73 98 05/25/22 17:00 110 H 16 94/75 96 05/25/22 16:31 120 H 20 94/75 98 Intake and Output 05/25/22 05/26/22 05/26/22 22:59 06:59 14:59 Intake Total 1.75 0 Output Total 350 Balance 1.75 -350 Intake: Intake, IV Titration 1.75 Amount Diltiazem 125 mg In 1.75 Sodium Chloride 0.9% 100 ml @ 5 MG/HR 5 mls/hr IV .Q24H [facility] Rx#:[id number] Oral 0 Output: Urine 350 Other: Voiding Method Urinal Urinal Urinal Diaper # Voids 2 2 # Bowel Movements 1 Weight 92.986 kg Results 05/25/22 17:25 05/25/22 17:25 Cardiac Enzymes 05/25/22 05/25/22 Range/Units 17:25 17:25 AST 36 (17-59) U/L Troponin I <0.012 (0.000-0.034) ng/mL Coagulation 05/25/22 Range/Units 17:25 PT 10.6 (9.0-12.0) sec APTT 22.9 (22.0-30.0) sec CBC 05/25/22 Range/Units 17:25 WBC 8.6 (3.8-10.6) k/uL RBC 4.56 (4.30-5.90) m/uL Hgb 14.2 (13.0-17.5) gm/dL Hct 42.4 (39.0-53.0) % Plt Count 210 (150-450) k/uL Comprehensive Metabolic Panel 05/25/22 Range/Units 17:25 Sodium 139 (137-145) mmol/L Potassium 4.1 (3.5-5.1) mmol/L Chloride 101 (98-107) mmol/L Carbon Dioxide 24 (22-30) mmol/L BUN 31 H (9-20) mg/dL Creatinine 1.34 H (0.66-1.25) mg/dL Glucose 159 H (74-99) mg/dL Calcium 9.3 (8.4-10.2) mg/dL AST 36 (17-59) U/L ALT 40 (4-49) U/L Alkaline Phosphatase 84 (38-126) U/L Total Protein 6.7 (6.3-8.2) g/dL Albumin 4.0 (3.5-5.0) g/dL Current Medications Generic Name Dose Route Start Last Admin Trade Name Freq PRN Reason Stop Dose Admin Amiodarone HCl 200 mg 05/26/22 09:45 Amiodarone 200 Mg Tab PO BID [facility] Apixaban 5 mg 05/26/22 09:15 05/26/22 09:14 Apixaban 5 Mg Tab PO 5 mg BID [facility] Administration Protocol Atorvastatin Calcium 40 mg 05/26/22 21:00 Atorvastatin 40 Mg Tab PO HS [facility] Cholecalciferol 25 mcg 05/26/22 09:00 05/26/22 09:14 Cholecalciferol 25 Mcg (1000 Iu) Tablet PO 25 mcg DAILY MARJAN Administration Famotidine 20 mg 05/26/22 09:00 05/26/22 09:23 Famotidine 20 Mg Tab PO Not Given DAILY [facility] Ceftriaxone Sodium 1 gm/ 50 mls @ 100 mls/hr 05/25/22 22:00 05/25/22 22:09 Sodium Chloride IVPB 100 mls/hr Q24H [facility] Administration Protocol Metoprolol Tartrate 50 mg 05/26/22 09:00 05/26/22 09:14 Metoprolol Tartrate 50 Mg Tab PO 50 mg BID MARJAN Administration Naloxone HCl 0.2 mg 05/25/22 18:49 Naloxone 0.4 Mg/Ml 1 Ml Vial IV Q2M PRN Opioid Reversal Nitroglycerin 0.4 mg 05/25/22 21:35 Nitroglycerin Sl Tabs 0.4 Mg Tab SUBLINGUAL Q5M PRN Chest Pain Intake and Output 05/25/22 05/26/22 05/26/22 22:59 06:59 14:59 Intake Total 1.75 0 Output Total 350 Balance 1.75 -350 Intake: Intake, IV Titration 1.75 Amount Diltiazem 125 mg In 1.75 Sodium Chloride 0.9% 100 ml @ 5 MG/HR 5 mls/hr IV .Q24H [facility] Rx#:[id number] Oral 0 Output: Urine 350 Other: Voiding Method Urinal Urinal Urinal Diaper # Voids 2 2 # Bowel Movements 1 Weight 92.986 kg 05/25/22 17:25 05/25/22 17:25
[2022-05-26] MEDS: AMIODARONE 200 MG TAB PO SCH ×2 (14:53→21:40)
[2022-05-26] MEDS ORDERED: ASPIRIN 81 MG PO SCH (21:00)
[2022-05-26] MEDS: ATORVASTATIN 40 MG TAB PO SCH (21:41)
[2022-05-27 08:30] LABS: Calcium 8.4 mg/dL (8.4-10.2)
[2022-05-27] MEDS: AMIODARONE 200 MG TAB PO SCH ×2 (09:21→21:32)
[2022-05-27] MEDS: APIXABAN 5 MG TAB PO SCH ×2 (09:21→21:32)
[2022-05-27] MEDS: METOPROLOL TARTRATE 50 MG TAB PO SCH ×2 (09:21→21:32)
[2022-05-27] MEDS: CHOLECALCIFEROL 25 MCG (1000 IU) TABLET PO SCH (09:21)
--- NOTE | 2022-05-27 13:00 | P.PN ---
Subjective Progress Note Date: 05/27/22 This is a 87-year-old male with a past medical history significant for hypertension, hyperlipidemia, coronary artery disease with previous stenting, and mild cardiomyopathy. Patient follows in the office with Dr. Alford. We have been asked to see the patient in consultation for afib. Patient examined at the bedside. Patient presented to the hospital with a chief complaint of palpitations. Patient was found to be in A. fib with RVR. Patient does not have a history of atrial fibrillation. He was started on an IV Cardizem drip. He subsequently converted to sinus mechanism and is maintaining sinus mechanism this morning. Patient is seen resting comfortably in bed today doing well. He continues to deny shortness of breath, chest pain, or palpitations. He is on Eliquis for anticoagulation. He is on amiodarone 200 mg twice a day and Lopressor 50 mg twice a day he remains sinus rhythm with a controlled ventricle rate. His echocardiogram has been ordered. Objective - Vital Signs Vital signs: Vital Signs Temp 98.4 F 05/27/22 08:00 Pulse 84 05/27/22 11:28 Resp 18 05/27/22 08:00 BP 138/72 05/27/22 08:00 Pulse Ox 97 05/27/22 08:00 FiO2 21 05/26/22 20:07 Intake & Output 05/26/22 05/27/22 05/27/22 18:59 06:59 18:59 Intake Total 476 180 Output Total 150 Balance 476 -150 180 Intake: Oral 476 180 Output: Urine 150 Other: Voiding Method Urinal Urinal Urinal Diaper # Voids 2 2 - Exam PHYSICAL EXAM: VITAL SIGNS: Reviewed. GENERAL: Well-developed in no acute distress. HEENT: Head is normocephalic. Pupils are equal, round. Sclerae anicteric. Mucous membranes of the mouth are moist. NECK: Supple. No JVD or thyromegaly RESPIRATORY: Respirations even and unlabored. Lungs diminished to auscultation bilaterally. CARDIO: Regular rate and rhythm. S1 and S2 heard. No murmur or gallops. EXTREMITIES: Normal range of motion. No clubbing or cyanosis. Peripheral pulses intact. Negative for bilateral lower extremity edema NEURO: Orientated to person, time, mood is appropriate - Labs CBC & Chem 7: 05/25/22 17:25 05/27/22 07:18 Labs: Abnormal Lab Results - Last 24 Hours (Table) 05/27/22 Range/Units 07:18 Carbon Dioxide 21 L (22-30) mmol/L BUN 25 H (9-20) mg/dL Glucose 122 H (74-99) mg/dL Microbiology - Last 24 Hours (Table) 05/25/22 17:25 Urine Culture - Preliminary Urine,Voided Gram Neg Bacilli Assessment and Plan Assessment: Palpitations New onset paroxysmal atrial fibrillation with RVR, currently maintaining sinus mechanism Coronary artery disease with previous stenting Mild ischemic cardiomyopathy Hypertension Hyperlipidemia Acute kidney injury Plan: Continue with Eliquis, amiodarone, and Lopressor. Continue to hold losartan and Aldactone secondary to acute kidney injury Will obtain 2-D echocardiogram Further recommendations based on clinical course The above impression and plan of care have been discussed and directed by the signing physician. Norma Randall, nurse practitioner, acting as scribe for signing physician.
--- NOTE | 2022-05-27 21:27 | P.PN ---
Subjective This is a plea presents with palpitation perry 87 years old male with past medical history of Coronary Artery Disease status post stent, Hyperlipidemia, Hypertension,, ischemic cardiomyopathy, spinal stenosis, numbness to bilateral legs and feet, BPH, he is a patient of Dr. Larios Patient states he came to the hospital because his heart rate was beating fast. Patient says his been having this problem for about a week, yesterday he thought of checking his pulse and noticed that there are skipped beats. He got concerne d and decided to come to the hospital. Patient has mild lightheadedness on admission but no overt dizziness or syncope. No chest pain. Also patient has chronic increased frequency of urination every 2 hours over the last 2 days he notices every 10 minutes he has to go to PE. No dysuria. No abdominal symptoms like pain or vomiting or diarrhea. No fever or weakness or numbness No smoking, alcohol or illicit drugs On admission heart rate was elevated at 120, blood pressure was on the low side thank you 94/75. Currently blood pressure 129/75. On admission creatinine mildly elevated 1.3 compared to baseline 0.8-1.0. Other labs are unremarkable including CBC, INR, liver enzymes and rest of bpm. D-dimer is -0.53. Chest x-ray: Chronic changes with cardiomegaly. No acute process. EKG showing atrial fibrillation's with RVR at 129 05/27/2020 Patient improving clinically, he is sitting on the chair looks happy and smiling with improvement. Distal and ceftriaxone for UTI and culture growing gram-negative bacilli Pleat Patternmaker evaluated the patient for A. fib and currently on Eliquis a blood thinner and amiodarone 200 mg. Also on metoprolol 50 mg twice a day Objective - Vital Signs Vital signs: Vital Signs Temp 98.1 F 05/27/22 16:00 Pulse 81 05/27/22 16:00 Resp 18 05/27/22 16:00 BP 151/71 05/27/22 16:00 Pulse Ox 96 05/27/22 16:00 FiO2 21 05/26/22 20:07 Intake & Output 05/26/22 05/27/22 05/27/22 18:59 06:59 18:59 Intake Total 476 300 Output Total 150 Balance 476 -150 300 Intake: Oral 476 300 Output: Urine 150 Other: Voiding Method Urinal Urinal Urinal Diaper # Voids 2 2 - Exam micsGENERAL: The patient is alert and oriented x3, not in any acute distress. Well developed, well nourished. HEENT: Pupils are round and equally reacting to light. EOMI. No scleral icterus. No conjunctival pallor. Normocephalic, atraumatic. No pharyngeal erythema. No thyromegaly. CARDIOVASCULAR: S1 and S2 present. No murmurs, rubs, or gallops. PULMONARY: Chest is clear to auscultation, no wheezing or crackles. ABDOMEN: Soft, nontender, nondistended, normoactive bowel sounds. No palpable organomegaly. MUSCULOSKELETAL: No joint swelling or deformity. EXTREMITIES: No cyanosis, clubbing, or pedal edema. NEUROLOGICAL: Gross neurological examination did not reveal any focal deficits. SKIN: No rashes. no petechiae. - Labs CBC & Chem 7: 05/25/22 17:25 05/27/22 07:18 Labs: Abnormal Lab Results - Last 24 Hours (Table) 05/27/22 Range/Units 07:18 Carbon Dioxide 21 L (22-30) mmol/L BUN 25 H (9-20) mg/dL Glucose 122 H (74-99) mg/dL Microbiology - Last 24 Hours (Table) 05/25/22 17:25 Urine Culture - Preliminary Urine,Voided Gram Neg Bacilli Assessment and Plan Assessment: A. fib and RVR Acute urinary tract infection Old acute kidney injury History of coronary artery disease status post stenting Disc history of ischemic cardiomyopathy History of spinal stenosis and numbness in bilateral legs and feet History of BPH Start ceftriaxone follow-up urine culture Plan: This is a pleasant 57 years old male who presents with A. fib and RVR, UTI Continue with metoprolol and amiodarone Continue with ceftriaxone follow-up urine culture Cardiology consult Labs and medication were reviewed.. Continue same treatment. Continue with symptomatic treatment. Resume home medication. Monitor lytes and vitals. DVT and GI prophylaxis. Further recommendations as per clinical course of the patient DVT prophylaxis: Eliquis a blood thinner GI Prophylaxis: Pepcid PT/OT: Pending Prognosis is guarded
[2022-05-27] MEDS: ATORVASTATIN 40 MG TAB PO SCH (21:32)
[2022-05-28] MEDS: METOPROLOL TARTRATE 50 MG TAB PO SCH ×2 (08:31→20:08)
[2022-05-28] MEDS: APIXABAN 5 MG TAB PO SCH ×2 (08:31→20:08)
[2022-05-28] MEDS: CHOLECALCIFEROL 25 MCG (1000 IU) TABLET PO SCH (08:31)
[2022-05-28] MEDS: AMIODARONE 200 MG TAB PO SCH ×2 (08:31→20:08)
[2022-05-28] MEDS: FAMOTIDINE 20 MG TAB PO SCH (08:31)
--- NOTE | 2022-05-28 14:11 | P.PN ---
Subjective Progress Note Date: 05/28/22 This is a 87-year-old male with a past medical history significant for hypertension, hyperlipidemia, coronary artery disease with previous stenting, and mild cardiomyopathy. Patient follows in the office with Dr. Alford. We have been asked to see the patient in consultation for afib. Patient examined at the bedside. Patient presented to the hospital with a chief complaint of palpitations. Patient was found to be in A. fib with RVR. Patient does not have a history of atrial fibrillation. He was started on an IV Cardizem drip. He subsequently converted to sinus mechanism and is maintaining sinus mechanism this morning. Patient is doing well today and is seen resting comfortably in the bedside chair in no signs of acute distress. He continues to deny palpitations, chest pain, or increased shortness of breath. He is on Eliquis for anticoagulation. He is on amiodarone 200 mg twice a day and Lopressor 50 mg twice a day he remains sinus rhythm with a controlled ventricle rate. His echocardiogram has been ordered for tomorrow. Possible discharge tomorrow Objective - Vital Signs Vital signs: Vital Signs Temp 98.2 F 05/28/22 12:00 Pulse 67 05/28/22 12:44 Resp 18 05/28/22 12:00 BP 124/78 05/28/22 12:00 Pulse Ox 96 05/28/22 12:00 FiO2 21 05/26/22 20:07 Intake & Output 05/27/22 05/28/22 05/28/22 18:59 06:59 18:59 Intake Total 300 422 Output Total 400 550 Balance 300 -400 -128 Intake: Oral 300 422 Output: Urine 400 550 Other: Voiding Method Urinal Urinal Urinal - Exam PHYSICAL EXAM: VITAL SIGNS: Reviewed. GENERAL: Well-developed in no acute distress. HEENT: Head is normocephalic. Pupils are equal, round. Sclerae anicteric. Mucous membranes of the mouth are moist. NECK: Supple. No JVD or thyromegaly RESPIRATORY: Respirations even and unlabored. Lungs diminished to auscultation bilaterally. CARDIO: Regular rate and rhythm. S1 and S2 heard. No murmur or gallops. EXTREMITIES: Normal range of motion. No clubbing or cyanosis. Peripheral pulses intact. Negative for bilateral lower extremity edema NEURO: Orientated to person, time, mood is appropriate - Labs CBC & Chem 7: 10/20/22 17:25 05/27/22 07:18 Assessment and Plan Assessment: Palpitations New onset paroxysmal atrial fibrillation with RVR, currently maintaining sinus mechanism Coronary artery disease with previous stenting Mild ischemic cardiomyopathy Hypertension Hyperlipidemia Acute kidney injury Plan: Continue with Eliquis, amiodarone, and Lopressor. Continue to hold losartan and Aldactone secondary to acute kidney injury Will obtain 2-D echocardiogram Further recommendations based on clinical course The above impression and plan of care have been discussed and directed by the signing physician. Norma Randall, nurse practitioner, acting as scribe for signing physician.
--- NOTE | 2022-05-28 17:05 | P.PN ---
Subjective This is a plea presents with palpitation perry 87 years old male with past medical history of Coronary Artery Disease status post stent, Hyperlipidemia, Hypertension,, ischemic cardiomyopathy, spinal stenosis, numbness to bilateral legs and feet, BPH, he is a patient of Dr. Larios Patient states he came to the hospital because his heart rate was beating fast. Patient says his been having this problem for about a week, yesterday he thought of checking his pulse and noticed that there are skipped beats. He got concerne d and decided to come to the hospital. Patient has mild lightheadedness on admission but no overt dizziness or syncope. No chest pain. Also patient has chronic increased frequency of urination every 2 hours over the last 2 days he notices every 10 minutes he has to go to PE. No dysuria. No abdominal symptoms like pain or vomiting or diarrhea. No fever or weakness or numbness No smoking, alcohol or illicit drugs On admission heart rate was elevated at 120, blood pressure was on the low side thank you 94/75. Currently blood pressure 129/75. On admission creatinine mildly elevated 1.3 compared to baseline 0.8-1.0. Other labs are unremarkable including CBC, INR, liver enzymes and rest of bpm. D-dimer is -0.53. Chest x-ray: Chronic changes with cardiomegaly. No acute process. EKG showing atrial fibrillation's with RVR at 129 05/27/2020 Patient improving clinically, he is sitting on the chair looks happy and smiling with improvement. Distal and ceftriaxone for UTI and culture growing gram-negative bacilli Rn Cardiac evaluated the patient for A. fib and currently on Eliquis a blood thinner and amiodarone 200 mg. Also on metoprolol 50 mg twice a day 05/28/2022 Patient is asymptomatic and the same as yesterday. No new complaints. new onset A. fib with rate controlled currently. Patient currently on Eliquis, metoprolol 50 mg and amiodarone creatinine improved to 1.1 Urine culture showing gram-negative bacilli. He is on Rocephin Objective - Vital Signs Vital signs: Vital Signs Temp 98.2 F 05/28/22 08:00 Pulse 61 05/28/22 08:00 Resp 16 05/28/22 08:00 BP 138/61 05/28/22 08:00 Pulse Ox 97 05/28/22 08:00 FiO2 21 05/26/22 20:07 Intake & Output 05/27/22 05/28/22 05/28/22 18:59 06:59 18:59 Intake Total 300 422 Output Total 400 550 Balance 300 -400 -128 Intake: Oral 300 422 Output: Urine 400 550 Other: Voiding Method Urinal Urinal Urinal - Exam micsGENERAL: The patient is alert and oriented x3, not in any acute distress. Well developed, well nourished. HEENT: Pupils are round and equally reacting to light. EOMI. No scleral icterus. No conjunctival pallor. Normocephalic, atraumatic. No pharyngeal erythema. No thyromegaly. CARDIOVASCULAR: S1 and S2 present. No murmurs, rubs, or gallops. PULMONARY: Chest is clear to auscultation, no wheezing or crackles. ABDOMEN: Soft, nontender, nondistended, normoactive bowel sounds. No palpable organomegaly. MUSCULOSKELETAL: No joint swelling or deformity. EXTREMITIES: No cyanosis, clubbing, or pedal edema. NEUROLOGICAL: Gross neurological examination did not reveal any focal deficits. SKIN: No rashes. no petechiae. - Labs CBC & Chem 7: 05/25/22 17:25 05/27/22 07:18 Assessment and Plan Assessment: A. fib and RVR Acute urinary tract infection Old acute kidney injury History of coronary artery disease status post stenting Disc history of ischemic cardiomyopathy History of spinal stenosis and numbness in bilateral legs and feet History of BPH Start ceftriaxone follow-up urine culture Plan: This is a pleasant 57 years old male who presents with A. fib and RVR, UTI Continue with metoprolol and amiodarone Continue with ceftriaxone follow-up urine culture Cardiology consult Labs and medication were reviewed.. Continue same treatment. Continue with symptomatic treatment. Resume home medication. Monitor lytes and vitals. DVT and GI prophylaxis. Further recommendations as per clinical course of the patient DVT prophylaxis: Eliquis a blood thinner GI Prophylaxis: Pepcid PT/OT: Pending Prognosis is guarded
[2022-05-28] MEDS ORDERED: ACETAMINOPHEN TAB 325 MG TAB PO PRN (19:59)
[2022-05-28] MEDS: ATORVASTATIN 40 MG TAB PO SCH (20:08)
[2022-05-29] MEDS: AMIODARONE 200 MG TAB PO SCH (10:32)
[2022-05-29] MEDS: METOPROLOL TARTRATE 50 MG TAB PO SCH (10:32)
[2022-05-29] MEDS: APIXABAN 5 MG TAB PO SCH (10:32)
[2022-05-29] MEDS: FAMOTIDINE 20 MG TAB PO SCH (10:32)
[2022-05-29] MEDS: CHOLECALCIFEROL 25 MCG (1000 IU) TABLET PO SCH (10:32)
--- NOTE | 2022-05-29 11:38 | P.PN ---
Subjective This is a 87-year-old male with a past medical history significant for hypertension, hyperlipidemia, coronary artery disease with previous stenting, and mild cardiomyopathy. Patient follows in the office with Dr. Alford. We have been asked to see the patient in consultation for afib. Patient examined at the bedside. Patient presented to the hospital with a chief complaint of palpitations. He reports he has been feeling these over the past week. Patient was found to be in A. fib with RVR. Patient does not have a history of atrial fibrillation. He was started on an IV Cardizem drip. He subsequently converted to sinus mechanism and is maintaining sinus mechanism. Patient seen and examined at bedside, distress. She is maintaining sinus m echanism. He denies any chest pain or shortness of breath. Blood pressure 120/67, heart rate 55, afebrile, saturations 97% on room air He's currently maintained on Eliquis 5 mg twice a day, amiodarone 200 mg twice a day, atorvastatin 40 mg nightly, metoprolol tartrate 50mg BID Labs: BUN 25, serum troponin 1.16 on 05/27. PHYSICAL EXAM: VITAL SIGNS: Reviewed. GENERAL: Well-developed in no acute distress. HEENT: Neck supple. No JVD LUNGS: Respirations even and unlabored. Lungs essentially clear to auscultation bilaterally. HEART: Regular rate and rhythm. S1 and S2 heard. ABDOMEN: Soft. Nondistended. Nontender. EXTREMITIES: Normal range of motion. No clubbing or cyanosis. Peripheral pu lses intact. No lower extremity edema NEUROLOGIC: Awake and alert. Oriented x 3. ASSESSMENT: Palpitations New onset paroxysmal atrial fibrillation with RVR, currently maintaining sinus mechanism Coronary artery disease with previous stenting Mild ischemic cardiomyopathy Hypertension Hyperlipidemia Acute kidney injury, improved PLAN: Continue amiodarone 200mg BID Eliquis 5mg BID Continue current dose of metoprolol From cardiology perspective, patient is stable to be discharged home. Follow up outpatient with Dr. Alford in 12 weeks Nurse practitioner note has been reviewed by physician. Signing provider agrees with the documented findings, assessment, and plan of care. Objective - Vital Signs Vital signs: Vital Signs Temp 98.2 F 05/29/22 04:00 Pulse 55 L 05/29/22 04:00 Resp 12 05/29/22 04:00 BP 120/67 10/24/22 04:00 Pulse Ox 97 05/29/22 04:00 FiO2 21 05/26/22 20:07 Intake & Output 05/28/22 05/29/22 05/29/22 18:59 06:59 18:59 Intake Total 542 Output Total 850 1020 Balance -308 -1020 Intake: Oral 542 Output: Urine 850 1020 Other: Voiding Method Urinal Urinal - Labs CBC & Chem 7: 05/25/22 17:25 05/27/22 07:18 Labs: Microbiology - Last 24 Hours (Table) 05/25/22 17:25 Urine Culture - Final Urine,Voided Escherichia coli
--- NOTE | 2022-05-29 18:02 | CA ---
Transthoracic Echo Report Name: Otis Andres Age: 87 Gender: M : 1935 Exam Date: 05/29/2022 11:10 Exam Location: [facility] Ht (in): 71 Wt (lb): 205 Ordering Physician: Norma Randall Attending/Referring Phys: Box Printing Machine Operator Sanat Yip RDCS Procedure CPT: Indications: new a fib Cardiac Hx: Technical Quality: Poor Contrast 1: Total Dose (mL): Contrast 2: Total Dose (mL): MEASUREMENTS (Male / Female) Normal Values 2D ECHO LV Diastolic Diameter PLAX 4.7 cm 4.2 - 5.9 / 3.9 - 5.3 cm LV Systolic Diameter PLAX 3.1 cm IVS Diastolic Thickness 1.2 cm 0.6 - 1.0 / 0.6 - 0.9 cm LVPW Diastolic Thickness 1.4 cm 0.6 - 1.0 / 0.6 - 0.9 cm LV Relative Wall Thickness 0.6 RV Internal Dim ED PLAX 3.0 cm LA Systolic Diameter LX 4.1 cm 3.0 - 4.0 / 2.7 - 3.8 cm M-MODE Aortic Root Diameter MM 4.1 cm MV E Point Septal Separation 1.7 cm AV Cusp Separation MM 1.9 cm DOPPLER AV Peak Velocity 115.1 cm/s AV Peak Gradient 5.3 mmHg AI Peak Velocity 331.2 cm/s AI Peak Gradient 43.9 mmHg AI Pressure Half Time 680.4 ms MV Area PHT 2.7 cm??? Mitral E Point Velocity 67.3 cm/s Mitral A Point Velocity 120.9 cm/s Mitral E to A Ratio 0.6 MV Deceleration Time 282.4 ms MV E' Velocity 4.8 cm/s Mitral E to MV E' Ratio 13.9 FINDINGS Left Ventricle Left ventricular ejection fraction is estimated at 45-50 %. Left ventricular cavity size normal. Mildly increased septal wall thickness. Apical septum, apical anterior , apical inferior hypokinesis Right Ventricle Normal right ventricular size and function. Unable to estimate the right ventricular systolic pressure. Right Atrium Normal right atrial size. Left Atrium Mild left atrial dilatation. Mitral Valve Mitral valve thickened. Mitral annular calcification. Mild mitral regurgitation. Aortic Valve Trileaflet aortic valve. Mild aortic regurgitation. Tricuspid Valve Structurally normal tricuspid valve. Pulmonic Valve Pulmonic valve not well visualized. Pericardium Normal pericardium. No pericardial effusion. Aorta Moderate aortic dilatation at the level of the sinuses of valsalva (root). 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 Josias Díaz MD (Electronically Signed) Final Date: 29 May 2022 18:01
[2022-05-29 19:10] VITALS: RESP 16; TEMP 98.1
[2022-05-29 19:31] VITALS: BP 129/65; PULSE 59
--- NOTE | 2022-05-30 21:34 | P.DS ---
Providers Date of admission: 05/25/22 20:05 Attending physician: Armando Gabriel MD Consults: 05/25/22 18:49 Consult Physician Routine Consulting Provider: Angelina Alford Consult Reason/Comments: New onset afib RVR Do you want consulting provider notified?: Yes Primary care physician: Travon Larios Hospital Course: Final Diagnosis paroxysmal Atrial fibrillation with RVR new onset Acute urinary tract infection Acute renal injury on admission, resolved History of coronary artery disease status post stenting History of mild ischemic cardiomyopathy History of spinal stenosis and numbness in bilateral legs and feet History of BPH Dyslipidemia Discharge Disposition Patient is stable for discharge home. He will follow up with Dr Alford in 1 to 2 weeks and primary care Dr Larios in 1 to 2 days. He has been started on eliquis and also has converted to normal sinus rhythm and will discharge on oral amiodarone. Patient will complete 3 more days of oral ceftin for acute UTI. Hospital Course This is a pleasant 87 year old male who presents to the hospital with concern for palpitations. Patient states he was checking his pulse as he normally does when is working out. He noticed his heart rate was irregular and then checked his pulse rate and found it to be elevated. Denies chest pain, denies shortnes of breath, no orthopnea. No history of atrial fibrillation. He has history of hypertension, hyperlipidemia, ischemic cardiomyopathy with prior AK and cardiac stenting. He also has history of spinal stenosis, bph. EKG on admission shows atrial fibrillation with rapid ventricular rate about 130 heart rate. He was started on IV cardizem and which he did convert to sinus rhythm with first degree AV block. Echocardiogram was performed showing an ejection fraction of 45 to 50% with apical hypokinesis, mild MR, mild AR. He was started on oral amiodarone, maintined on metoprolol, aldactone which will be continued. Patient has also been started on eliquis. He also presents with mild acute renal injury of 1.34 which did improve and also possible uti with small blood noted. Urine culture was positive for E.Coli and patient received IV antibiotics while inpatient and will receive 3 additional days on discharge. Blood pressure stable at 129/65. 05/29/2022 Patient evaluated sitting up in chair. He would like to go home today. No complaints of nausea, vomiting, diarrhea, no dysuria. He denies chest pain, no shortness of breath. No palpitations and is maintaining sinus mechanism. Lungs are clear. Creatinine today 1.16. Cardiology has cleared patient for discharge. Please see medication reconciliation for a list of current medication. Thank you for allowing us to participate in the care of this patient. The impression and plan of care has been dictated by Mansi Rowell, Nurse Practitioner as directed. Dr. Fatou MD I have performed a history and physical examination and medical decision making of this patient, discussed the same with the dictator, and agree with the dictators assessment and plan as written, documented as a scribe. Based on total visit time, I have performed more than 50% of this visit. Patient Condition at Discharge: Stable Plan - Discharge Summary Discharge Rx Participant: No New Discharge Prescriptions: New Apixaban [Eliquis] 5 mg PO BID #60 tab Amiodarone [Cordarone] 200 mg PO BID #60 tab Famotidine [Pepcid] 20 mg PO DAILY #30 tab Acetaminophen Tab [Tylenol] 650 mg PO Q6HR PRN tab PRN Reason: Fever and/ or Mild Pain cefUROXime axetiL [Ceftin] 500 mg PO BID 3 Days #6 tab Continue Metoprolol Tartrate [Lopressor] 50 mg PO BID #180 tab Nitroglycerin Sl Tabs [Nitrostat] 0.4 mg SUBLINGUAL Q5M PRN #25 tab PRN Reason: Chest Pain Spironolactone [Aldactone] 25 mg PO DAILY #90 tab Atorvastatin [Lipitor] 40 mg PO HS Cholecalciferol [Vitamin D3 (25 Mcg = 1000 Iu)] 25 mcg PO DAILY Changed Losartan Potassium [Cozaar] 25 mg PO DAILY #0 Discontinued Aspirin EC [Ecotrin Low Dose] 81 mg PO HS Discharge Medication List Metoprolol Tartrate [Lopressor] 50 mg PO BID #180 tab 05/22/14 [Rx] Nitroglycerin Sl Tabs [Nitrostat] 0.4 mg SUBLINGUAL Q5M PRN #25 tab 05/22/14 [Rx] Spironolactone [Aldactone] 25 mg PO DAILY #90 tab 05/22/14 [Rx] Atorvastatin [Lipitor] 40 mg PO HS 06/06/17 [History] Cholecalciferol [Vitamin D3 (25 Mcg = 1000 Iu)] 25 mcg PO DAILY 05/25/22 [History] Apixaban [Eliquis] 5 mg PO BID #60 tab 05/26/22 [Rx] Acetaminophen Tab [Tylenol] 650 mg PO Q6HR PRN tab 05/29/22 [Rx] Amiodarone [Cordarone] 200 mg PO BID #60 tab 05/29/22 [Rx] Famotidine [Pepcid] 20 mg PO DAILY #30 tab 05/29/22 [Rx] Losartan Potassium [Cozaar] 25 mg PO DAILY #0 05/29/22 [Rx] cefUROXime axetiL [Ceftin] 500 mg PO BID 3 Days #6 tab 05/29/22 [Rx] Follow up Appointment(s)/Referral(s): Travon Larios MD [Primary Care Provider] - 1-2 days (Please call office to schedule follow up. ) Angelina Alford MD [STAFF PHYSICIAN] - 1 Week (Please call office to schedule follow up. ) Ambulatory/Diagnostic Orders: Comprehensive Metabolic Panel [LAB.AMB] Time Frame: 3 Days, Location: None Selected Patient Instructions/Handouts: A-fib (Atrial Fibrillation) (DC) Activity/Diet/Wound Care/Special Instructions: Continue on amiodarone and follow up with cardiology Discharge Disposition: HOME SELF-CARE
== END 2022-05-29 19:01 | disposition home or self-care (01) | DRG 309 ==
LOC: EC 16:30 → 3SCARD 20:05
PROVIDERS: ADMIT Internal Medicine; ATTEND Internal Medicine
DX: I48.0 Paroxysmal atrial fibrillation (principal); N17.9 Acute kidney failure, unspecified; N39.0 Urinary tract infection, site not specified; B96.20 Unspecified Escherichia coli [E. coli] as the cause of diseases classified elsewhere; I77.810 Thoracic aortic ectasia; I08.0 Rheumatic disorders of both mitral and aortic valves; E86.0 Dehydration; I44.0 Atrioventricular block, first degree; I25.10 Atherosclerotic heart disease of native coronary artery without angina pectoris; I10 Essential (primary) hypertension; I25.5 Ischemic cardiomyopathy; E78.5 Hyperlipidemia, unspecified; N40.0 Benign prostatic hyperplasia without lower urinary tract symptoms; M48.00 Spinal stenosis, site unspecified; I25.2 Old myocardial infarction; Z95.5 Presence of coronary angioplasty implant and graft; Z79.899 Other long term (current) drug therapy; Z82.49 Family history of ischemic heart disease and other diseases of the circulatory system; Z79.01 Long term (current) use of anticoagulants
CPT/HCPCS: 36415; 71046; 80048; 80053; 81001; 83735; 84443; 84484; 85025; 85379; 85610; 85730; 87077; 87086; 87186; 93005; 93306; 94760; 96365; 96366; 96372; 99285

== ENCOUNTER → 2023-03-27 | Outpatient (CLI) | payer MEDICARE, BC ==
[2023-03-27 15:32] LABS: HGB 11.7 d/dL (13.0-17.0); MCH 30.5 pg (27.0-32.0); MCHC 31.6 d/dL (32.0-37.0); MCV 96.6 FL (80.0-97.0); Mean Platelet Volume 10.6 FL (9.5-12.2); NRBC Per 100 WBC 0 X 10*3/uL (0.00-0.01); Platelet Count 245 X 10*3/uL (140-440); RBC 3.83 X 10*6/uL (4.40-5.60); RDW 13.8 % (11.5-14.5); WBC 9.75 X 10*3/uL (4.50-10.00)
[2023-03-27 15:57] LABS: ALT 22 U/L (10-49); AST 22 U/L (14-35); Albumin 3.6 d/dL (3.8-4.9); Alkaline Phosphatase 93 U/L (41-126); BUN/Creat Ratio 20.38 Ratio (12.00-20.00); Blood Urea Nitrogen 32.6 mg/dL (9.0-27.0); Calcium 9.2 mg/dL (8.7-10.3); Carbon Dioxide 23.2 mmol/L (21.6-31.8); Chloride 105 mmol/L (96-109); Chol/HDL Ratio 2.49 Ratio; Globulin 2.4 d/dL (1.6-3.3); Glucose 98 mg/dL (70-110); LDL Cholesterol,Calculated 30.9 mg/dL (0.0-131.0); Potassium 4.7 mmol/L (3.5-5.5); Sodium 137 mmol/L (135-145); T4, Free (Free Thyroxine) 1.84 ng/dL (0.80-1.80); Total Bilirubin 0.4 mg/dL (0.3-1.2)
== END | disposition home or self-care (01) ==
LOC: LABWHC1 10:40
PROVIDERS: ATTEND Internal Medicine Interventional Cardiology
DX: I48.0 Paroxysmal atrial fibrillation (principal); E78.2 Mixed hyperlipidemia
CPT/HCPCS: 36415; 80053; 80061; 84439; 84443; 85027

== ENCOUNTER 2023-04-18 08:17 | Inpatient (IN) | payer MEDICARE, BC ==
[2023-04-18] MEDS ORDERED: ONDANSETRON 4 MG/2 ML VIAL IVP STA (08:57)
[2023-04-18] MEDS ORDERED: MORPHINE SULFATE 2 MG/ML SYRINGE IVP ONE (08:57)
[2023-04-18 09:03] LABS: Appearance,Urine Clear (Clear); Bilirubin,Urine Negative (Negative); Blood,Urine Trace (Negative); Color,Urine Colorless; Glucose,Urine (UA) Negative (Negative); Ketones,Urine Negative (Negative); Leukocyte Esterase,Urine Trace (Negative); Nitrite,Urine Negative (Negative); PH, Urine 6.5 (5.0-8.0); Protein,Urine Negative (Negative); RBC,Urine 6 /hpf (0-5); Squamous Epithelial Cell,Urine <1 /hpf (0-4); Urobilinogen,Urine <2.0 mg/dL (<2.0); WBC,Urine 9 /hpf (0-5)
--- NOTE | 2023-04-18 09:06 | ED ---
General Adult HPI - General Chief complaint: Urogenital Stated complaint: Bladder pain Time Seen by Provider: 04/18/23 08:23 Source: patient, family, EMS, RN notes reviewed Mode of arrival: EMS Limitations: no limitations - History of Present Illness Initial comments: 87-year-old male presents emergency Department chief complaint of urinary frequency, dysuria, right flank pain. Patient states that he seen here a few days ago noted have blood in his urine at that time. He is treated for UTI. He states symptoms have not improved other than his urine has become more light in color than it was. Patient denies any reported fever states that he's up every few minutes to urinate. Patient is very weak has had multiple falls patient is laying in his bed with urine per family - Related Data Home Medications Medication Instructions Recorded Confirmed Atorvastatin [Lipitor] 40 mg PO HS 06/06/17 04/18/23 Amiodarone [Cordarone] 200 mg PO DAILY 04/18/23 04/18/23 Finasteride [Proscar] 5 mg PO DAILY 04/18/23 04/18/23 Losartan Potassium [Cozaar] 25 mg PO BID 04/18/23 04/18/23 Previous Rx's Medication Instructions Recorded Metoprolol Tartrate [Lopressor] 50 mg PO BID #180 tab 05/22/14 Spironolactone [Aldactone] 25 mg PO DAILY #90 tab 05/22/14 Apixaban [Eliquis] 5 mg PO BID #60 tab 05/26/22 Famotidine [Pepcid] 20 mg PO DAILY #30 tab 05/29/22 Cephalexin [Keflex] 500 mg PO BID #14 cap 04/14/23 Tamsulosin [Flomax] 0.4 mg PO DAILY #7 cap 04/18/23 Allergies Allergy/AdvReac Type Severity Reaction Status Date / Time No Known Allergies Allergy Verified 04/18/23 09:27 Review of Systems ROS Statement: Those systems with pertinent positive or pertinent negative responses have been documented in the HPI. ROS Other: All systems not noted in ROS Statement are negative. Past Medical History Past Medical History: Coronary Artery Disease (CAD), Hyperlipidemia, Hypertension, Myocardial Infarction ([place]) Additional Past Medical History / Comment(s): Anterior wall [place] 05/18/14, ischemic cardiomyopathy, spinal stenosis, numbness to bilateral legs and feet, BPH, pt denies hyperlipidemia-takes lipitor. Last Myocardial Infarction Date:: 05/18/2014 History of Any Multi-Drug Resistant Organisms: None Reported Past Surgical History: Heart Catheterization, Heart Catheterization With Stent Additional Past Surgical History / Comment(s): HEART CATH WITH 3 STENTS 05/18/14 (2 stents to LAD) and 06/03/14 (1 stent to obtuse marginal), cardiac cath 2014, colonoscopy-normal Past Anesthesia/Blood Transfusion Reactions: No Reported Reaction Additional Past Anesthesia/Blood Transfusion Reaction / Comment(s): Pt states he has never had general anesthesia. He also has never recieved blood. Date of Last Stent Placement:: 06/03/14 Past Psychological History: No Psychological Hx Reported Smoking Status: Never smoker Past Alcohol Use History: None Reported Past Drug Use History: None Reported - Past Family History Father Family Medical History: No Reported History Additional Family Medical History / Comment(s): Father in his 80's. Mother Family Medical History: Coronary Artery Disease (CAD) Additional Family Medical History / Comment(s): Mother at age 63yrs and pt believes it may have been due to a heart problem. General Exam Limitations: no limitations General appearance: alert, in no apparent distress Head exam: Present: atraumatic, normocephalic, normal inspection Respiratory exam: Present: normal lung sounds bilaterally. Absent: respiratory distress, wheezes, rales, rhonchi, stridor Cardiovascular Exam: Present: regular rate, normal rhythm, normal heart sounds. Absent: systolic murmur, diastolic murmur, rubs, gallop, clicks GI/Abdominal exam: Present: soft, normal bowel sounds. Absent: distended, tenderness, guarding, rebound, rigid Back exam: Present: CVA tenderness (R). Absent: CVA tenderness (L) Course Vital Signs 04/18/23 04/18/23 04/18/23 08:18 09:48 11:09 Temperature 98.6 F Pulse Rate 65 65 81 Respiratory 18 18 18 Rate Blood Pressure 186/74 175/96 164/81 O2 Sat by Pulse 96 96 97 Oximetry Medical Decision Making - Medical Decision Making Was pt. sent in by a medical professional or institution (, PA, PROFESSOR IN FAMILY STUDIES, urgent care, hospital, or residential...) When possible be specific @ -No Did you speak to anyone other than the patient for history (EMS, parent, family, police, friend...)? What history was obtained from this source @ -No Did you review nursing and triage notes (agree or disagree)? Why? @ -I reviewed and agree with nursing and triage notes Were old charts reviewed (outside hosp., previous admission, EMS record, old EKG, old radiological studies, urgent care reports/EKG's, residential records)? Report findings @ -No old charts were reviewed Differential Diagnosis (chest pain, altered mental status, abdominal pain women, abdominal pain men, vaginal bleeding, weakness, fever, dyspnea, syncope, headache, dizziness, GI bleed, back pain, seizure, CVA, palpatations, mental health, musculoskeletal)? @ -UTI, kidney stone, generalized weakness EKG interpreted by me (3pts min.). @ -Non- X-rays interpreted by me (1pt min.). @ -None done CT interpreted by me (1pt min.). @ -[CT and pelvis showing a left ureteral calculi, mild hydronephrosis U/S interpreted by me (1pt. min.). @ -None done What testing was considered but not performed or refused? (CT, X-rays, U/S, labs)? Why? @ -None What meds were considered but not given or refused? Why? @ -None Did you discuss the management of the patient with other professionals (professionals i.e. , PA, PROFESSOR IN FAMILY STUDIES, lab, RT, psych nurse, social services technician, product builder, teacher, founder and chief executive officer, mental health case manager)? Give summary @ -Dr. Dunham for admission given patient's extreme weakness, multiple falls and may need for rehab Was smoking cessation discussed for >3mins.? @ -No Was critical care preformed (if so, how long)? @ -No Were there social determinants of health that impacted care today? How? (Homelessness, low income, unemployed, alcoholism, drug addiction, transportation, low edu. Level, literacy, decrease access to med. care, skilled nursing, r ehab)? @ -No Was there de-escalation of care discussed even if they declined (Discuss DNR or withdrawal of care, Hospice)? DNR status @ -No What co-morbidities impacted this encounter? (DM, HTN, Smoking, COPD, CAD, Cancer, CVA, ARF, Chemo, Hep., AIDS, mental health diagnosis, sleep apnea, morbid obesity)? @ -None Was patient admitted / discharged? Hospital course, mention meds given and route, prescriptions, significant lab abnormalities, going to OR and other pertinent info. @ -Patient had recent UTI urine culture shows 2 organisms was some resistance. Patient was given antibiotics based on this urinalysis, urine culture patient CT does show kidney stone causing patient's pain patient is extremely weak and unable to get out of bed patient be admitted for rehab. Undiagnosed new problem with uncertain prognosis? @ -No Drug Therapy requiring intensive monitoring for toxicity (Heparin, Nitro, Insul in, Cardizem)? @ -No Were any procedures done? @ -No Diagnosis/symptom? @ -Kidney stone, UTI, weakness, falls Acute, or Chronic, or Acute on Chronic? @ -acute Uncomplicated (without systemic symptoms) or Complicated (systemic symptoms)? @ -[complicated Side effects of treatment? @ -No Exacerbation, Progression, or Severe Exacerbation? @ -No Poses a threat to life or bodily function? How? (Chest pain, [place], [place], pneumonia, PE, COPD, DKA, ARF, appy, cholecystitis, CVA, Diverticulitis, Homicidal, Suicidal, threat to staff... and all critical care pts) @ -No - Lab Data Result diagrams: 04/18/23 08:49 04/18/23 08:49 Lab Results 04/18/23 04/18/23 04/18/23 Range/Units 08:49 08:49 08:49 WBC 9.4 (3.8-10.6) k/uL RBC 3.93 L (4.30-5.90) m/uL Hgb 12.3 L (13.0-17.5) gm/dL Hct 37.4 L (39.0-53.0) % MCV 95.1 (80.0-100.0) fL MCH 31.2 (25.0-35.0) pg MCHC 32.8 (31.0-37.0) g/dL RDW 14.2 (11.5-15.5) % Plt Count 212 (150-450) k/uL MPV 8.3 Neutrophils % 68 % Lymphocytes % 18 % Monocytes % 8 % Eosinophils % 3 % Basophils % 0 % Neutrophils # 6.3 (1.3-7.7) k/uL Lymphocytes # 1.7 (1.0-4.8) k/uL Monocytes # 0.7 (0-1.0) k/uL Eosinophils # 0.3 (0-0.7) k/uL Basophils # 0.0 (0-0.2) k/uL Sodium 137 (137-145) mmol/L Potassium 4.5 (3.5-5.1) mmol/L Chloride 106 (98-107) mmol/L Carbon Dioxide 26 (22-30) mmol/L Anion Gap 5 mmol/L BUN 32 H (9-20) mg/dL Creatinine 1.38 H (0.66-1.25) mg/dL Est GFR (CKD-EPI)AfAm 52 (>60 ml/min/1.73 sqM) Est GFR (CKD-EPI)NonAf 45 (>60 ml/min/1.73 sqM) Glucose 122 H (74-99) mg/dL Plasma Lactic Acid Geraldo (0.7-2.0) mmol/L Calcium 9.0 (8.4-10.2) mg/dL Total Bilirubin 0.6 (0.2-1.3) mg/dL AST 31 (17-59) U/L ALT 33 (4-49) U/L Alkaline Phosphatase 89 (38-126) U/L Total Protein 6.2 L (6.3-8.2) g/dL Albumin 3.2 L (3.5-5.0) g/dL Lipase 98 (23-300) U/L Urine Color Colorless Urine Appearance Clear (Clear) Urine pH 6.5 (5.0-8.0) Ur Specific [place] 1.010 (1.001-1.035) Urine Protein Negative (Negative) Urine Glucose (UA) Negative (Negative) Urine Ketones Negative (Negative) Urine Blood Trace H (Negative) Urine Nitrite Negative (Negative) Urine Bilirubin Negative (Negative) Urine Urobilinogen <2.0 (<2.0) mg/dL Ur Leukocyte Esterase Trace H (Negative) Urine RBC 6 H (0-5) /hpf Urine WBC 9 H (0-5) /hpf Ur Squamous Epith Cells <1 (0-4) /hpf 04/18/23 Range/Units 08:49 WBC (3.8-10.6) k/uL RBC (4.30-5.90) m/uL Hgb (13.0-17.5) gm/dL Hct (39.0-53.0) % MCV (80.0-100.0) fL MCH (25.0-35.0) pg MCHC (31.0-37.0) g/dL RDW (11.5-15.5) % Plt Count (150-450) k/uL MPV Neutrophils % % Lymphocytes % % Monocytes % % Eosinophils % % Basophils % % Neutrophils # (1.3-7.7) k/uL Lymphocytes # (1.0-4.8) k/uL Monocytes # (0-1.0) k/uL Eosinophils # (0-0.7) k/uL Basophils # (0-0.2) k/uL Sodium (137-145) mmol/L Potassium (3.5-5.1) mmol/L Chloride (98-107) mmol/L Carbon Dioxide (22-30) mmol/L Anion Gap mmol/L BUN (9-20) mg/dL Creatinine (0.66-1.25) mg/dL Est GFR (CKD-EPI)AfAm (>60 ml/min/1.73 sqM) Est GFR (CKD-EPI)NonAf (>60 ml/min/1.73 sqM) Glucose (74-99) mg/dL Plasma Lactic Acid Geraldo 1.9 (0.7-2.0) mmol/L Calcium (8.4-10.2) mg/dL Total Bilirubin (0.2-1.3) mg/dL AST (17-59) U/L ALT (4-49) U/L Alkaline Phosphatase (38-126) U/L Total Protein (6.3-8.2) g/dL Albumin (3.5-5.0) g/dL Lipase (23-300) U/L Urine Color Urine Appearance (Clear) Urine pH (5.0-8.0) Ur Specific [place] (1.001-1.035) Urine Protein (Negative) Urine Glucose (UA) (Negative) Urine Ketones (Negative) Urine Blood (Negative) Urine Nitrite (Negative) Urine Bilirubin (Negative) Urine Urobilinogen (<2.0) mg/dL Ur Leukocyte Esterase (Negative) Urine RBC (0-5) /hpf Urine WBC (0-5) /hpf Ur Squamous Epith Cells (0-4) /hpf Disposition Clinical Impression: Ureteral calculi, Weakness, UTI (urinary tract infection) Disposition: ADMITTED IP TO THIS HOSP Condition: Fair Instructions (If sedation given, give patient instructions): Kidney Stones (ED) Additional Instructions: Please return to the Emergency Department if symptoms worsen or any other concerns. Prescriptions: Tamsulosin [Flomax] 0.4 mg PO DAILY #7 cap Is patient prescribed a controlled substance at d/c from ED?: No Referrals: Travon Larios MD [Primary Care Provider] - 1-2 days Time of Disposition: 10:56
[2023-04-18 09:09] LABS: Basophils % (A) 0 %; Eosinophils # (A) 0.3 k/uL (0-0.7); Eosinophils % (A) 3 %; HCT 37.4 % (39.0-53.0); HGB 12.3 gm/dL (13.0-17.5); Lymphocytes # (A) 1.7 k/uL (1.0-4.8); Lymphocytes % (A) 18 %; MCH 31.2 pg (25.0-35.0); MCHC 32.8 g/dL (31.0-37.0); MCV 95.1 fL (80.0-100.0); Mean Platelet Volume 8.3; Monocytes # (A) 0.7 k/uL (0-1.0); Monocytes % (A) 8 %; Neutrophils # (A) 6.3 k/uL (1.3-7.7); Neutrophils % (A) 68 %; Platelet Count 212 k/uL (150-450); RBC 3.93 m/uL (4.30-5.90); RDW 14.2 % (11.5-15.5); WBC 9.4 k/uL (3.8-10.6)
[2023-04-18 09:20] LABS: ALT 33 U/L (4-49); AST 31 U/L (17-59); African American GFR (CKD) 52 (>60 ml/min/1.73 sqM); Albumin 3.2 g/dL (3.5-5.0); Alkaline Phosphatase 89 U/L (38-126); Anion Gap 5 mmol/L; Blood Urea Nitrogen 32 mg/dL (9-20); Carbon Dioxide 26 mmol/L (22-30); Chloride 106 mmol/L (98-107); Glucose 122 mg/dL (74-99); Lipase 98 U/L (23-300); Non-African American GFR(CKD) 45 (>60 ml/min/1.73 sqM); Potassium 4.5 mmol/L (3.5-5.1); Sodium 137 mmol/L (137-145); Total Bilirubin 0.6 mg/dL (0.2-1.3); Total Protein 6.2 g/dL (6.3-8.2)
--- NOTE | 2023-04-18 10:00 | CT ---
EXAMINATION TYPE: CT abdomen pelvis wo con CT DLP: 1087.4 mGycm, Automated exposure control for dose reduction was used. DATE OF EXAM: 04/18/2023 9:23 AM COMPARISON: CT abdomen pelvis most recent from 03/20/2021 CLINICAL INDICATION:Male, 87 years old with history of joint pain; Flank pain TECHNIQUE: Axial CT of the abdomen and pelvis. Sagittal and coronal reformats were created on a [employer] workstation. Contrast used: mL of , (none if empty) Oral contrast used: without Oral Contrast (none if empty) FINDINGS: LOWER CHEST: Heart is enlarged for size. Moderate coronary artery cusp patient's. Mild bilateral gyne comastia changes. ABDOMEN LIVER: Unremarkable GALLBLADDER AND BILE DUCTS: Unremarkable. PANCREAS: Unremarkable. SPLEEN: Unremarkable. ADRENAL GLANDS: Unremarkable. KIDNEYS AND URETERS: Minimal left hydronephrosis secondary obstructing 4 mm calculus at the ureterove sicular junction. PELVIS BLADDER: Unremarkable REPRODUCTIVE: Prostate is enlarged in size measuring 5.3 cm in transverse dimension. ABDOMEN & PELVIS STOMACH AND BOWEL: No evidence of bowel obstruction. Scattered colonic diverticula. Moderate stool bu rden throughout the colon. Small hiatal hernia. PERITONEUM/RETROPERITONEUM: No evidence of pneumoperitoneum or free fluid. VASCULATURE: No evidence of aortic aneurysm. MUSCULOSKELETAL: No acute osseous abnormalities. Moderate disc degeneration changes are present throu ghout the thoracolumbar spine. LYMPH NODES: No gross evidence for lymphadenopathy. SOFT TISSUE/ABDOMINAL WALL: Unremarkable IMPRESSION: 1. Minimal left hydronephrosis secondary obstructing 4 mm calculus at the ureterovesicular junction. 2. Colonic diverticulosis. 3. Prostatomegaly correlate with serum PSA. 4. Small hiatal hernia. 5. Moderate cardiomegaly. 6. Moderate coronary artery cusp patient's.
[2023-04-18] MEDS ORDERED: ACET/COD 300 MG/30 MG STARTER PACK 6 TAB BTL PO STA (10:57)
[2023-04-18] MEDS ORDERED: ONDANSETRON 4 MG/2 ML VIAL IVP PRN (11:47)
[2023-04-18] MEDS ORDERED: NALOXONE 0.4 MG/ML 1 ML VIAL IV PRN (11:47)
[2023-04-18] MEDS ORDERED: LEVOFLOXACIN 500MG-D5W PMX 500 MG in DEXTROSE/WATER 1 100ML.BAG IVPB STA (11:48)
[2023-04-18] MEDS: SODIUM CHLORIDE 0.9% 1,000 ML IV SCH (12:23)
[2023-04-18] MEDS: HYDROcodone/APAP 5-325MG 1 EACH TAB PO PRN (18:49)
[2023-04-18] MEDS: LOSARTAN 25 MG TAB PO SCH (21:27)
[2023-04-18] MEDS: METOPROLOL TARTRATE 50 MG TAB PO SCH (21:27)
[2023-04-18] MEDS: ATORVASTATIN 40 MG TAB PO SCH (21:27)
--- NOTE | 2023-04-18 23:23 | P.HPIM ---
History of Present Illness H&P Date: 04/18/23 Chief Complaint: Generalized weakness Patient is a 87-year-old male with a past medical history of hypertension, hyperlipidemia, history of [place], coronary artery disease history of stent placement, mild ischemic cardiomyopathy and paroxysmal atrial fibrillation on anticoagulation with Eliquis presents to ER with complaints of blood in the urine for the past 1 week. Patient is also having right flank pain for the past 2 days. Also having increased frequency of urination. Patient was seen in the ER on 04/14/2023. Urine culture was sent and patient was discharged home on antibiotics Keflex for 1 week. Patient is still having increased frequency and left flank pain. Urine is more light-colored currently. Denies any fever. Patient is also having generalized weakness and multiple falls and unable to get out of bed. Patient has been lying in the bed with urine as per family. Was brought to the ER for further evaluation. CT of the abdomen pelvis showed minimal left hydronephrosis secondary to obstructing 4 mm calculus at the ureterovesicular junction. Prostamegaly. Moderate cardiomegaly and small hiatal hernia. Laboratory data showed WBC 9.4 hemoglobin 12.3 and platelets 212. BUN 32 and creatinine 1.38 and blood sugar 122. Urinalysis showed colorless and trace blood and trace leukocyte esterase with elevated WBCs 9. Review of Systems Constitutional: Patient denies any fever or chills . Generalized weakness and unable to get out of bed.. Abdomen: Patient denied any nausea or vomiting or abd. pain, Left flank pain. Cardiovascular: Patient denies any chest pain or short of breath no palpitations. Respiratory: patient denied any cough . no sputum production. No shortness of breath Neurologic: Patient denied any numbness or tingling headache. Musculoskeletal: Patient denies any complaints of joint swelling or deformity. Skin: Negative Psychiatric: Negative Endocrine: No heat or cold intolerance. No recent weight gain. Genitourinary: dysuria and blood in the urine. All other 14 point ROS negative except the above Past Medical History Past Medical History: Coronary Artery Disease (CAD), Hyperlipidemia, Hypertension, Myocardial Infarction ([place]) Additional Past Medical History / Comment(s): Anterior wall [place] 05/18/14, ischemic cardiomyopathy, spinal stenosis, numbness to bilateral legs and feet, BPH, pt denies hyperlipidemia-takes lipitor. Last Myocardial Infarction Date:: 05/18/2014 History of Any Multi-Drug Resistant Organisms: None Reported Past Surgical History: Heart Catheterization, Heart Catheterization With Stent Additional Past Surgical History / Comment(s): HEART CATH WITH 3 STENTS 05/18/14 (2 stents to LAD) and 06/03/14 (1 stent to obtuse marginal), cardiac cath 2014, colonoscopy-normal Past Anesthesia/Blood Transfusion Reactions: No Reported Reaction Additional Past Anesthesia/Blood Transfusion Reaction / Comment(s): Pt states he has never had general anesthesia. He also has never recieved blood. Date of Last Stent Placement:: 06/03/14 Past Psychological History: No Psychological Hx Reported Smoking Status: Never smoker Past Alcohol Use History: None Reported Past Drug Use History: None Reported - Past Family History Father Family Medical History: No Reported History Additional Family Medical History / Comment(s): Father in his 80's. Mother Family Medical History: Coronary Artery Disease (CAD) Additional Family Medical History / Comment(s): Mother at age 63yrs and pt believes it may have been due to a heart problem. Medications and Allergies Home Medications Medication Instructions Recorded Confirmed Type Metoprolol Tartrate [Lopressor] 50 mg PO BID #180 tab 05/22/14 04/18/23 Rx Spironolactone [Aldactone] 25 mg PO DAILY #90 tab 05/22/14 04/18/23 Rx Atorvastatin [Lipitor] 40 mg PO HS 06/06/17 04/18/23 History Apixaban [Eliquis] 5 mg PO BID #60 tab 05/26/22 04/18/23 Rx Famotidine [Pepcid] 20 mg PO DAILY #30 tab 05/29/22 04/18/23 Rx Cephalexin [Keflex] 500 mg PO BID #14 cap 04/14/23 04/18/23 Rx Amiodarone [Cordarone] 200 mg PO DAILY 04/18/23 04/18/23 History Finasteride [Proscar] 5 mg PO DAILY 04/18/23 04/18/23 History Losartan Potassium [Cozaar] 25 mg PO BID 04/18/23 04/18/23 History Tamsulosin [Flomax] 0.4 mg PO DAILY #7 cap 04/18/23 Rx Allergies Allergy/AdvReac Type Severity Reaction Status Date / Time No Known Allergies Allergy Verified 04/18/23 09:27 Physical Exam Vitals: Vital Signs Temp Pulse Resp BP Pulse Ox 04/18/23 11:09 81 18 164/81 97 04/18/23 09:48 65 18 175/96 96 04/18/23 08:18 98.6 F 65 18 186/74 96 Intake and Output 04/18/23 04/18/23 04/18/23 06:59 14:59 22:59 Other: Voiding Method Toilet Weight 92.986 kg PHYSICAL EXAMINATION: Patient is lying in the bed comfortably, no acute distress, awake alert and oriented.. HEENT: Normocephalic. Neck is supple. Pupils reactive. Nostrils clear. Oral cavity is moist. Neck reveals no JVD, carotid bruits, or thyromegaly. CHEST EXAMINATION: Trachea is central. Symmetrical expansion. Lung lopez clear to auscultation and percussion. CARDIAC: Normal S1, S2 with no gallops. No murmurs ABDOMEN: Soft. Bowel sounds present. Nontender. No organomegaly. No abdominal bruits. Extremities: reveal no edema. No clubbing or cyanosis Neurologically awake, alert, oriented x3 with well-coordinated movements. No focal deficits noted Skin: No rash or skin lesions. Psychiatric: Coperative. Nonsuicidal, Musculoskeletal: No joint swelling or deformity. Normal range of motion. Results CBC & Chem 7: 04/18/23 08:49 04/18/23 08:49 Labs: Abnormal Lab Results - Last 24 Hours (Table) 04/18/23 04/18/23 04/18/23 Range/Units 08:49 08:49 08:49 RBC 3.93 L (4.30-5.90) m/uL Hgb 12.3 L (13.0-17.5) gm/dL Hct 37.4 L (39.0-53.0) % BUN 32 H (9-20) mg/dL Creatinine 1.38 H (0.66-1.25) mg/dL Glucose 122 H (74-99) mg/dL Total Protein 6.2 L (6.3-8.2) g/dL Albumin 3.2 L (3.5-5.0) g/dL Urine Blood Trace H (Negative) Ur Leukocyte Esterase Trace H (Negative) Urine RBC 6 H (0-5) /hpf Urine WBC 9 H (0-5) /hpf Thrombosis Risk Factor Assmnt - DVT/VTE Prophylaxis DVT/VTE Prophylaxis: Pharmacologic Prophylaxis ordered Assessment and Plan Assessment: Left flank pain with minimal hydronephrosis secondary to obstructing 4 mm calculus at the UVJ Hematuria secondary to above Acute urinary tract infection with recent cultures showing E. coli and Proteus. Paroxysmal atrial fibrillation on anticoagulation with Eliquis Coronary artery disease history of stent placement Stroke [place] Hypertension Hyperlipidemia Mild ischemic cardiomyopathy BPH DVT prophylaxis. Plan: Patient will be continued on IV hydration with normal saline and antibiotics levofloxaci as per patient urine cultures. Eliquis is on hold due to hematuria and possible intervention by urology. Urology consult for evaluation. Continue with other home medications and follow-up closely. Continue with pain management. PT OT consult Time with Patient: Greater than 30
[2023-04-19] MEDS: HYDROcodone/APAP 5-325MG 1 EACH TAB PO PRN ×2 (04:52→16:51)
[2023-04-19] MEDS: SODIUM CHLORIDE 0.9% 1,000 ML IV SCH ×2 (05:59→11:04)
[2023-04-19] MEDS: LEVOFLOXACIN 500MG-D5W PMX 500 MG in DEXTROSE/WATER 1 100ML.BAG IVPB SCH (08:33)
[2023-04-19] MEDS: LOSARTAN 25 MG TAB PO SCH ×2 (08:33→20:30)
[2023-04-19] MEDS: FAMOTIDINE 20 MG TAB PO SCH (08:33)
[2023-04-19] MEDS: FINASTERIDE 5 MG TAB PO SCH (08:33)
[2023-04-19] MEDS: ATORVASTATIN 40 MG TAB PO SCH (08:33)
[2023-04-19] MEDS: METOPROLOL TARTRATE 50 MG TAB PO SCH ×2 (08:33→20:30)
[2023-04-19] MEDS: AMIODARONE 200 MG TAB PO SCH (08:33)
[2023-04-19 10:52] LABS: Basophils # (A) 0.07 X 10*3/uL (0.00-0.10); Basophils % (A) 0.7 %; HCT 37.4 % (39.6-50.0); HGB 11.9 d/dL (13.0-17.0); Lymphocytes % (A) 12.4 %; MCH 30.3 pg (27.0-32.0); MCHC 31.8 d/dL (32.0-37.0); MCV 95.2 FL (80.0-97.0); Mean Platelet Volume 10.6 FL (9.5-12.2); Monocytes # (A) 0.98 X 10*3/uL (0.20-1.00); Monocytes % (A) 10.1 %; NRBC Per 100 WBC 0 X 10*3/uL (0.00-0.01); Neutrophils % (A) 75.4 %; Platelet Count 226 X 10*3/uL (140-440); RBC 3.93 X 10*6/uL (4.40-5.60); RDW 14.1 % (11.5-14.5); WBC 9.69 X 10*3/uL (4.50-10.00)
[2023-04-19 11:07] LABS: BUN/Creat Ratio 19.58 Ratio (12.00-20.00); Blood Urea Nitrogen 23.5 mg/dL (9.0-27.0); Calcium 9.1 mg/dL (8.7-10.3); Carbon Dioxide 25.5 mmol/L (21.6-31.8); Chloride 103 mmol/L (96-109); Glucose 134 mg/dL (70-110); Potassium 5.3 mmol/L (3.5-5.5); Sodium 138 mmol/L (135-145)
[2023-04-20] MEDS: HYDROcodone/APAP 5-325MG 1 EACH TAB PO PRN ×3 (01:03→20:01)
[2023-04-20] MEDS: SODIUM CHLORIDE 0.9% 1,000 ML IV SCH ×2 (01:04→20:03)
[2023-04-20] MEDS: LEVOFLOXACIN 500MG-D5W PMX 500 MG in DEXTROSE/WATER 1 100ML.BAG IVPB SCH (09:17)
[2023-04-20] MEDS: LOSARTAN 25 MG TAB PO SCH ×2 (09:19→20:01)
[2023-04-20] MEDS: FAMOTIDINE 20 MG TAB PO SCH (09:19)
[2023-04-20] MEDS: AMIODARONE 200 MG TAB PO SCH (09:19)
[2023-04-20] MEDS: FINASTERIDE 5 MG TAB PO SCH (09:19)
[2023-04-20] MEDS: METOPROLOL TARTRATE 50 MG TAB PO SCH ×2 (09:38→20:01)
--- NOTE | 2023-04-20 12:54 | P.GSCN ---
History of Present Illness Consult date: 04/20/23 Reason for Consult: left ureteral stone History of present illness: this is an 87-year-old male admitted to the hospital with a 4 mm left-sided ureteral stone, was having intractable pain. No previous history of kidney stones. Today on evaluation he indicates pain has improved significantly, he only has mild left lower quadrant abdominal pain and urinary frequency. He denies any dysuria or gross hematuria. No previous bladder or renal surgeries Past Medical History Past Medical History: Coronary Artery Disease (CAD), Hyperlipidemia, Hypertension, Myocardial Infarction ([place]) Additional Past Medical History / Comment(s): Anterior wall [place] 05/18/14, ischemic cardiomyopathy, spinal stenosis, numbness to bilateral legs and feet, BPH, Last Myocardial Infarction Date:: 05/18/2014 History of Any Multi-Drug Resistant Organisms: None Reported Past Surgical History: Heart Catheterization, Heart Catheterization With Stent Additional Past Surgical History / Comment(s): HEART CATH WITH 3 STENTS 05/18/14 (2 stents to LAD) and 06/03/14 (1 stent to obtuse marginal), cardiac cath 2014, colonoscopy-normal Past Anesthesia/Blood Transfusion Reactions: No Reported Reaction Additional Past Anesthesia/Blood Transfusion Reaction / Comm: Pt states he has never had general anesthesia. He also has never recieved blood. Date of Last Stent Placement:: 06/03/14 Past Psychological History: No Psychological Hx Reported Additional Psychological History / Comment(s): Pt resides alone. He uses a walker to ambulate due to spinal stenosis making bilateral legs and feet numb. He performs his own ADLs and no longer has any home care. He did use [facility] after his [place] discharge 05/19. Smoking Status: Never smoker Past Alcohol Use History: None Reported Past Drug Use History: None Reported - Past Family History Father Family Medical History: No Reported History Additional Family Medical History / Comment(s): Father in his 80's. Mother Family Medical History: Coronary Artery Disease (CAD) Additional Family Medical History / Comment(s): Mother at age 63yrs and pt believes it may have been due to a heart problem. Medications and Allergies Home Medications Medication Instructions Recorded Confirmed Type Metoprolol Tartrate [Lopressor] 50 mg PO BID #180 tab 05/22/14 04/18/23 Rx Spironolactone [Aldactone] 25 mg PO DAILY #90 tab 05/22/14 04/18/23 Rx Atorvastatin [Lipitor] 40 mg PO HS 06/06/17 04/18/23 History Apixaban [Eliquis] 5 mg PO BID #60 tab 05/26/22 04/18/23 Rx Famotidine [Pepcid] 20 mg PO DAILY #30 tab 05/29/22 04/18/23 Rx Cephalexin [Keflex] 500 mg PO BID #14 cap 04/14/23 04/18/23 Rx Amiodarone [Cordarone] 200 mg PO DAILY 04/18/23 04/18/23 History Finasteride [Proscar] 5 mg PO DAILY 04/18/23 04/18/23 History Losartan Potassium [Cozaar] 25 mg PO BID 04/18/23 04/18/23 History Tamsulosin [Flomax] 0.4 mg PO DAILY #7 cap 04/18/23 Rx Allergies Allergy/AdvReac Type Severity Reaction Status Date / Time No Known Allergies Allergy Verified 04/18/23 09:27 Surgical - Exam Vital Signs Temp Pulse Resp BP Pulse Ox 98.6 F 65 18 186/74 96 04/18/23 08:18 04/18/23 08:18 04/18/23 08:18 04/18/23 08:18 04/18/23 08:18 - General no distress, no pain - Respiratory normal expansion, normal respiratory effort - Abdomen Abdomen: soft, non tender - Psychiatric oriented to time, oriented to person, no oriented to place Results - Labs 04/19/23 06:59 04/19/23 06:59 Assessment and Plan Assessment: this is an 87-year-old male with history of a 4 mm left-sided UVJ stone. Minimally symptomatic now. Discussed with him given the minimal symptoms and the size of the stone a recommend continued with attempted to pass the stone spontaneously. Discussed that if his pain does worsen then we can proceed with left-sided ureteroscopy holmium laser. if pain is controlled this afternoon then he is okay for discharge and follow-up as an outpatient in 1 week, but if pain recurs then patient can be kept nothing by mouth past midnight and I'll go to the OR tomorrow to proceed with left-sided ureteroscopy and holmium laser
[2023-04-20] MEDS: ATORVASTATIN 40 MG TAB PO SCH (20:01)
[2023-04-21] MEDS: HYDROcodone/APAP 5-325MG 1 EACH TAB PO PRN ×2 (02:16→21:16)
[2023-04-21] MEDS: SODIUM CHLORIDE 0.9% 1,000 ML IV SCH (05:42)
--- NOTE | 2023-04-21 06:50 | P.PN ---
Subjective Progress Note Date: 04/19/23 Patient is a 87-year-old male with a past medical history of hypertension, hyperlipidemia, history of [place], coronary artery disease history of stent placement, mild ischemic cardiomyopathy and paroxysmal atrial fibrillation on anticoagulation with Eliquis presents to ER with complaints of blood in the uri ne for the past 1 week. Patient is also having right flank pain for the past 2 days. Also having increased frequency of urination. Patient was seen in the ER on 04/14/2023. Urine culture was sent and patient was discharged home on antibiotics Keflex for 1 week. Patient is still having increased frequency and left flank pain. Urine is more light-colored currently. Denies any fever. Patient is also having generalized weakness and multiple falls and unable to get out of bed. Patient has been lying in the bed with urine as per family. Was brought to the ER for further evaluation. CT of the abdomen pelvis showed minimal left hydronephrosis secondary to obstructing 4 mm calculus at the ureterovesicular junction. Prostamegaly. Moderate cardiomegaly and small hiatal hernia. Laboratory data showed WBC 9.4 hemoglobin 12.3 and platelets 212. BUN 32 and creatinine 1.38 and blood sugar 122. Urinalysis showed colorless and trace blood and trace leukocyte esterase with elevated WBCs 9. 04/19/2023 Patient is seen and evaluated in follow-up this morning with continued frequency in urination and pain although somewhat improved from yesterday. Patient with significant weakness awaiting physical therapy evaluation. Patient is currently afebrile with no reports of chest pain or shortness of breath. Patient reports to tolerating diet with no reported nausea or vomiting. Patient will likely need rehab and will consult discuss further with case management. Review of systems: Constitutional: No reports of fatigue, fever, or chills Cardiovascular: No reports of chest pain or palpitations Respiratory: No reports of shortness of breath or cough GI: No reports of nausea, vomiting, or diarrhea : No reports of dysuria or retention, reports frequency Neurovascular: reports of generalized weakness All medications have been reviewed PHYSICAL EXAMINATION: Patient is lying in the bed comfortably, no acute distress, awake alert and oriented.. HEENT: Normocephalic. Neck is supple. Pupils reactive. Nostrils clear. Oral cavity is moist. Neck reveals no JVD, carotid bruits, or thyromegaly. CHEST EXAMINATION: Trachea is central. Symmetrical expansion. Lung lopez clear to auscultation and percussion. CARDIAC: Normal S1, S2 with no gallops. No murmurs ABDOMEN: Soft. Bowel sounds present. Nontender. No organomegaly. No abdominal bruits. Extremities: reveal no edema. No clubbing or cyanosis Neurologically awake, alert, oriented x3 with well-coordinated movements. No focal deficits noted, generalized weakness Skin: No rash or skin lesions. Psychiatric: Cooperative. Non-suicidal Musculoskeletal: No joint swelling or deformity. Normal range of motion. Assessment: Left flank pain with minimal hydronephrosis secondary to obstructing 4 mm calculus at the UVJ Hematuria secondary to above, improving Acute urinary tract infection with recent cultures showing E. coli and Proteus. Paroxysmal atrial fibrillation on anticoagulation with Eliquis Coronary artery disease history of stent placement Stroke [place] Hypertension Hyperlipidemia Mild ischemic cardiomyopathy Gait dysfunction with generalized weakness BPH DVT prophylaxis. GI prophylaxis Full code Plan: Patient will be continued on IV hydration with normal saline and antibiotics in the form of Levaquin. Eliquis is on hold due to hematuria and possible intervention by urology. Urology evaluated the patient recommending conservative management at this time and if patient has continued pain may consider surgery Home medications reviewed and resumed PT OT for evaluation this patient may require ECF due to significant weakness Will follow-up with repeat labs Consult case management The impression and plan of care has been dictated by Zahra Dumont, Nurse Practitioner as directed. Dr. Roly MD I have performed a history and examination and MDM of this patient, discussed the same with the dictator, and agree with the dictator's assessment and plan as written ,documented as a scribe. Based on total visit time, I have performed more than 50% of the visit. Objective - Vital Signs Vital signs: Vital Signs Temp 97.9 F 04/20/23 07:55 Pulse 58 L 04/20/23 07:55 Resp 16 04/20/23 07:55 BP 143/54 04/20/23 07:55 Pulse Ox 92 L 04/20/23 07:55 FiO2 Intake & Output 04/19/23 04/20/23 04/20/23 18:59 06:59 18:59 Intake Total 500 Output Total 1000 600 700 Balance -1000 -100 -700 Weight 92.986 kg Intake: Oral 500 Output: Urine 1000 600 700 Other: Voiding Method External Catheter External Catheter - Labs CBC & Chem 7: 04/19/23 06:59 04/19/23 06:59 Labs: Abnormal Lab Results - Last 24 Hours (Table) 04/19/23 04/19/23 Range/Units 06:59 06:59 RBC 3.93 L (4.40-5.60) X 10*6/uL Hgb 11.9 L (13.0-17.0) d/dL Hct 37.4 L (39.6-50.0) % MCHC 31.8 L (32.0-37.0) d/dL Est GFR (CKD-EPI) 58 L (>=60) Glucose 134 H (70-110) mg/dL
--- NOTE | 2023-04-21 06:55 | P.PN ---
Subjective Progress Note Date: 04/20/23 Patient is a 87-year-old male with a past medical history of hypertension, hyperlipidemia, history of [place], coronary artery disease history of stent placement, mild ischemic cardiomyopathy and paroxysmal atrial fibrillation on anticoagulation with Eliquis presents to ER with complaints of blood in the uri ne for the past 1 week. Patient is also having right flank pain for the past 2 days. Also having increased frequency of urination. Patient was seen in the ER on 04/14/2023. Urine culture was sent and patient was discharged home on antibiotics Keflex for 1 week. Patient is still having increased frequency and left flank pain. Urine is more light-colored currently. Denies any fever. Patient is also having generalized weakness and multiple falls and unable to get out of bed. Patient has been lying in the bed with urine as per family. Was brought to the ER for further evaluation. CT of the abdomen pelvis showed minimal left hydronephrosis secondary to obstructing 4 mm calculus at the ureterovesicular junction. Prostamegaly. Moderate cardiomegaly and small hiatal hernia. Laboratory data showed WBC 9.4 hemoglobin 12.3 and platelets 212. BUN 32 and creatinine 1.38 and blood sugar 122. Urinalysis showed colorless and trace blood and trace leukocyte esterase with elevated WBCs 9. 04/19/2023 Patient is seen and evaluated in follow-up this morning with continued frequency in urination and pain although somewhat improved from yesterday. Patient with significant weakness awaiting physical therapy evaluation. Patient is currently afebrile with no reports of chest pain or shortness of breath. Patient reports to tolerating diet with no reported nausea or vomiting. Patient will likely need rehab and will consult discuss further with case management. 04/20/2023 Patient is seen in follow-up this morning currently sitting up in the chair. Patient was able to work with physical therapy reporting extreme weakness and almost difficulty with ambulation and getting up out of the bed. Patient reports he felt like he was going to fall trying to transfer to the chair. Patient reports he does live at home and was independent in ADLs and gait prior to this. Patient will benefit from ECF and will discuss further with case management about discharge planning. Urology following with no plans for immediate surgical intervention although patient continues to be symptomatic or having worsening pain that may require intervention at this admission. Continue to hold anticoagulation for now. Hematuria is improved and patient reports continued frequency but not having pain. Patient denies chest pain, shortness of breath, or palpitations. Patient reports to tolerating diet with no reports of nausea or vomiting noted. Review of systems: Constitutional: No reports of fatigue, fever, or chills Cardiovascular: No reports of chest pain or palpitations Respiratory: No reports of shortness of breath or cough GI: No reports of nausea, vomiting, or diarrhea : No reports of dysuria or retention, reports continued frequency Neurovascular: reports of generalized weakness All medications have been reviewed PHYSICAL EXAMINATION: Patient is sitting up in the chair, no acute distress, awake alert and oriented.. HEENT: Normocephalic. Neck is supple. Pupils reactive. Nostrils clear. Oral cavity is moist. Neck reveals no JVD, carotid bruits, or thyromegaly. CHEST EXAMINATION: Trachea is central. Symmetrical expansion. Lung lopez clear to auscultation and percussion. CARDIAC: Normal S1, S2 with no gallops. No murmurs ABDOMEN: Soft. Bowel sounds present. Nontender. No organomegaly. No abdominal bruits. Extremities: reveal no edema. No clubbing or cyanosis Neurologically awake, alert, oriented x3 with well-coordinated movements. No focal deficits noted, generalized weakness Skin: No rash or skin lesions. Psychiatric: Cooperative. Non-suicidal Musculoskeletal: No joint swelling or deformity. Normal range of motion. Assessment: Left flank pain with minimal hydronephrosis secondary to obstructing 4 mm calculus at the UVJ Hematuria secondary to above, improving Acute urinary tract infection with recent cultures showing E. coli and Proteus. Paroxysmal atrial fibrillation on anticoagulation with Eliquis Coronary artery disease history of stent placement Stroke [place] Hypertension Hyperlipidemia Mild ischemic cardiomyopathy Gait dysfunction with generalized weakness BPH DVT prophylaxis. GI prophylaxis Full code Plan: Patient will be continued on gentle IV hydration and antibiotics in the form of Levaquin. Urinalysis slightly positive although white count was low and no cultures were obtained Eliquis is on hold due to hematuria and possible intervention by urology. Urology evaluated the patient recommending conservative management at this time and if patient has continued pain may consider surgery Home medications reviewed and resumed PT OT evaluated the patient recommending rehab. Patient reports he was having difficulty even getting up out of the bed and standing and he was normally independent prior to this Encouraged increased activity as tolerated and will discuss with case management about discharge planning and insurance authorization for ECF Will follow-up with repeat labs The impression and plan of care has been dictated by Zahra Dumont, Nurse Practitioner as directed. Dr. Roly MD I have performed a history and examination and MDM of this patient, discussed the same with the dictator, and agree with the dictator's assessment and plan as written ,documented as a scribe. Based on total visit time, I have performed more than 50% of the visit. Objective - Vital Signs Vital signs: Vital Signs Temp 97.0 F L 04/21/23 01:33 Pulse 88 04/21/23 01:33 Resp 18 04/21/23 01:33 BP 152/74 04/21/23 01:33 Pulse Ox 95 04/21/23 01:33 FiO2 Intake & Output 04/20/23 04/20/23 04/21/23 06:59 18:59 06:59 Intake Total 500 1400 Output Total 600 1200 1400 Balance -100 -1200 0 Intake: Intake, IV Titration 900 Amount Sodium Chloride 0.9% 1, 900 000 ml @ 75 mls/hr IV . [id number] [facility] Rx#:[id number] Oral 500 500 Output: Urine 600 1200 1400 Other: Voiding Method External Catheter Indwelling Catheter Indwelling Catheter - Labs CBC & Chem 7: 04/19/23 06:59 04/19/23 06:59
[2023-04-21] MEDS: FINASTERIDE 5 MG TAB PO SCH (09:41)
[2023-04-21] MEDS: FAMOTIDINE 20 MG TAB PO SCH (09:41)
[2023-04-21] MEDS: LEVOFLOXACIN 500MG-D5W PMX 500 MG in DEXTROSE/WATER 1 100ML.BAG IVPB SCH (09:41)
[2023-04-21] MEDS: METOPROLOL TARTRATE 50 MG TAB PO SCH (09:41)
[2023-04-21] MEDS: AMIODARONE 200 MG TAB PO SCH (09:41)
[2023-04-21] MEDS: LOSARTAN 25 MG TAB PO SCH ×2 (09:41→21:19)
[2023-04-21 11:25] LABS: Basophils # (A) 0.07 X 10*3/uL (0.00-0.10); Basophils % (A) 0.8 %; Eosinophils # (A) 0.27 X 10*3/uL (0.04-0.35); Eosinophils % (A) 3.1 %; HCT 35.1 % (39.6-50.0); HGB 11.3 d/dL (13.0-17.0); Lymphocytes # (A) 1.33 X 10*3/uL (0.90-5.00); MCH 30.3 pg (27.0-32.0); MCHC 32.2 d/dL (32.0-37.0); MCV 94.1 FL (80.0-97.0); Mean Platelet Volume 10.6 FL (9.5-12.2); Monocytes # (A) 1.02 X 10*3/uL (0.20-1.00); Monocytes % (A) 11.5 %; NRBC Per 100 WBC 0 X 10*3/uL (0.00-0.01); Neutrophils # (A) 6.05 X 10*3/uL (1.80-7.70); Neutrophils % (A) 68.4 %; Platelet Count 234 X 10*3/uL (140-440); RBC 3.73 X 10*6/uL (4.40-5.60); WBC 8.85 X 10*3/uL (4.50-10.00)
[2023-04-21 11:29] LABS: BUN/Creat Ratio 16.71 Ratio (12.00-20.00); Blood Urea Nitrogen 23.4 mg/dL (9.0-27.0); Calcium 8.7 mg/dL (8.7-10.3); Carbon Dioxide 22.7 mmol/L (21.6-31.8); Chloride 102 mmol/L (96-109); Glucose 129 mg/dL (70-110); Magnesium 1.7 mg/dL (1.5-2.4); Potassium 4.6 mmol/L (3.5-5.5); Sodium 133 mmol/L (135-145)
--- NOTE | 2023-04-21 13:13 | P.PN ---
Subjective This morning on evaluation is having some left flank pain, continues to have urinary frequency. Did require pain medications overnight Objective - Vital Signs Vital signs: Vital Signs Temp 97.9 F 04/21/23 08:08 Pulse 70 04/21/23 08:08 Resp 18 04/21/23 08:08 BP 180/78 04/21/23 08:08 Pulse Ox 92 L 04/21/23 08:08 FiO2 Intake & Output 04/20/23 04/21/23 04/21/23 18:59 06:59 18:59 Intake Total 1400 Output Total 1200 1400 900 Balance -1200 0 -900 Intake: Intake, IV Titration 900 Amount Sodium Chloride 0.9% 1, 900 000 ml @ 75 mls/hr IV . [id number] MARJAN Rx#:[id number] Oral 500 Output: Urine 1200 1400 900 Other: Voiding Method Indwelling Catheter Indwelling Catheter External Catheter - Constitutional General appearance: Present: no acute distress - Gastrointestinal General gastrointestinal: Present: soft. Absent: distended, tenderness - Psychiatric Psychiatric: Present: A&O x's 3 - Labs CBC & Chem 7: 04/21/23 06:22 04/21/23 06:22 Labs: Abnormal Lab Results - Last 24 Hours (Table) 04/21/23 04/21/23 Range/Units 06:22 06:22 RBC 3.73 L (4.40-5.60) X 10*6/uL Hgb 11.3 L (13.0-17.0) d/dL Hct 35.1 L (39.6-50.0) % Monocytes # 1.02 H (0.20-1.00) X 10*3/uL Sodium 133 L (135-145) mmol/L Est GFR (CKD-EPI) 48 L (>=60) Glucose 129 H (70-110) mg/dL Assessment and Plan Assessment: this is an 87-year-old male with history of a 4 mm left-sided UVJ stone. Patient is symptomatically from his stone this morning. Discussed with him given the persistent symptoms at this time recommend proceeding with surgical intervention for the stone -Or tomorrow for left-sided ureteroscopy with holmium laser lithotripsy stone basketing and stent -NPO past MN
[2023-04-21] MEDS: ATORVASTATIN 40 MG TAB PO SCH (21:16)
[2023-04-22] MEDS ORDERED: ePHEDrine 50 MG/ML 1 ML VIAL ONE (08:18)
[2023-04-22] MEDS ORDERED: PROPOFOL 10 MG/ML 20 ML VIAL IV ONE (08:18)
[2023-04-22] MEDS ORDERED: fentaNYL (PF) 50 MCG/ML 2 ML AMP ONE (08:18)
[2023-04-22] MEDS ORDERED: LACTATED RINGERS 1,000 ML IV ONE (08:18)
[2023-04-22] MEDS ORDERED: SODIUM CHLORIDE 0.9% 50 ML with ceFAZolin 2,000 MG IV ONE ×2 (08:43)
--- NOTE | 2023-04-22 09:51 | FL ---
Fluoroscopy History: Ureteral Stent Insertion Left side lithotripsy with stent insertion 16sec fluoro time [id number] DAP
--- NOTE | 2023-04-22 10:04 | P.PN ---
Subjective Still having this pain this morning t Objective - Vital Signs Vital signs: Vital Signs Temp 97.2 F L 04/22/23 09:01 Pulse 85 04/22/23 09:30 Resp 20 04/22/23 09:30 BP 141/69 04/22/23 09:30 Pulse Ox 94 L 04/22/23 09:30 FiO2 Intake & Output 04/21/23 04/22/23 04/22/23 18:59 06:59 18:59 Intake Total 0 750 Output Total 1700 800 Balance -1700 -800 750 Intake: IV 750 Oral 0 Output: Urine 1700 800 Other: Voiding Method External Catheter External Catheter External Catheter - Constitutional General appearance: Present: no acute distress - Gastrointestinal General gastrointestinal: Present: soft. Absent: distended, tenderness - Psychiatric Psychiatric: Present: A&O x's 3 - Labs CBC & Chem 7: 04/21/23 06:22 04/21/23 06:22 Labs: Abnormal Lab Results - Last 24 Hours (Table) 04/21/23 04/21/23 Range/Units 06:22 06:22 RBC 3.73 L (4.40-5.60) X 10*6/uL Hgb 11.3 L (13.0-17.0) d/dL Hct 35.1 L (39.6-50.0) % Monocytes # 1.02 H (0.20-1.00) X 10*3/uL Sodium 133 L (135-145) mmol/L Est GFR (CKD-EPI) 48 L (>=60) Glucose 129 H (70-110) mg/dL Assessment and Plan Assessment: this is an 87-year-old male with history of a 4 mm left-sided UVJ stone. Patient is still symptomatic this morning. -Or today for left-sided ureteroscopy with holmium laser lithotripsy stone basketing and stent
--- NOTE | 2023-04-22 10:11 | P.OP ---
Date of Procedure: 04/22/23 Preoperative Diagnosis: Left ureteral stone Postoperative Diagnosis: same Procedure(s) Performed: Cystoscopy left ureteroscopy, holmium laser lithotripsy, stone basketing and stent insertion Implants: 4.8 FR X 26 cm stent Anesthesia: DM Surgeon: Russell Tomas Estimated Blood Loss (ml): 5 Pathology: other (left ureteral stone) Condition: stable Disposition: PACU Indications for Procedure: This is a 87-year-old male with history of a 4 mm left-sided UVJ stone, patient was admitted to the hospital for pain secondary to stone. Continues to have pain from his stone. Option of left-sided ureteroscopy with holmium laser was discussed with him. The risk which includes but not limited to bleeding, infection, injury to the ureter was discussed Description of Procedure: Patient brought to the operating room, general anesthesia was induced. He was draped and in sterile fashion and placed in dorsal lithotomy position. Cystoscopy inserted with a 22-Welsh sheath was inserted per urethra, cystoscopy was performed which showed no abnormality within the bladder. Of note patient did have any enlarged median lobe with slight intravesical extension. The bladder was heavily trabeculated. At this time attention was carried to the left ureteral orifice, semirigid ureteroscope was inserted per urethra and advanced up the left ureteral orifice, stone was encountered in the distal ureter. using the holmium laser the stone was fragmented, stone fragment were removed using the stone basket. At this time the ureteroscope was advanced all the way up to the proximal ureter which showed no additional stones. Pullback ureteroscopy was performed which showed no injury to the ureter or any ureteral stone fragments. There was some edema at the site of the stone. At this time a sensor wire was advanced through and into the kidney. The ureteroscope was withdrawn with the wire in place. Next a ureteral stent was passed over the wire, the proximal curl was visualized on fluoroscopy and the distal curl was visualized using the cystoscope. The stent was left on a string and taped to the patient penis. Patient tolerated procedure was taken to recovery in stable condition. He will follow-up in 1 week for stent removal
[2023-04-22 10:45] LABS: BUN/Creat Ratio 16.83 Ratio (12.00-20.00); Blood Urea Nitrogen 20.2 mg/dL (9.0-27.0); Carbon Dioxide 20.6 mmol/L (21.6-31.8); Chloride 99 mmol/L (96-109); Glucose 124 mg/dL (70-110); Potassium 4.6 mmol/L (3.5-5.5); Sodium 131 mmol/L (135-145)
[2023-04-22] MEDS: LOSARTAN 25 MG TAB PO SCH ×2 (11:24→20:39)
[2023-04-22] MEDS: FINASTERIDE 5 MG TAB PO SCH (11:24)
[2023-04-22] MEDS: FAMOTIDINE 20 MG TAB PO SCH (11:25)
--- NOTE | 2023-04-22 11:33 | P.CRDCN ---
History of Present Illness Consult date: 04/22/23 History of present illness: HISTORY OF PRESENTING ILLNESS 87-year-old with past medical history of hypertension, hyperlipidemia, coronary artery disease with prior stenting, mild cardiomyopathy with EF of 45% with apical hypokinesia is known to Dr. Alford. Patient had a renal stone and underwent a cystoscopy procedure. Yesterday on telemetry it was noticed that patient had a transient heart rate in 30s for which cardiology was consulted. Patient has chronic atrial fibrillation managed on amiodarone and metoprolol. Currently he is postop cystoscopy and is drowsy. He tolerated the procedure very well. He denied having any lightheadedness or dizziness chest pain shortness of breath. Currently he is in atrial fibrillation with controlled rate. He is hemodynamically stable. REVIEW OF SYSTEMS 14 point review of system is negative except what is mentioned above in HPI. PHYSICAL EXAMINATION Vital signs reviewed. Head: Normocephalic. Eyes: Sclerae nonicteric. Neck: Brisk carotid upstroke, no jugular venous distention. Lungs: Clear to auscultation. Heart: Regular rate and rhythm, S1-S2, no S3, no murmur or rub. Abdomen: Soft nontender, positive bowel sounds no organomegaly. Extremities: No edema, intact distal pulses. ASSESSMENT Transient bradycardia, resolved Chronic atrial fibrillation on amiodarone and metoprolol Renal calculi status post cystoscopy Essential hypertension CAD status post PCI Cardio myopathy with EF of 45% with apical hypokinesia PLAN Continue his current cardiac medications without any changes. Resume his amiodarone and metoprolol today. Continue to monitor him on telemetry. No evidence of further bradycardias. Obtain 12-lead ECG Resume Eliquis, tomorrow if okay by urologist Past Medical History Past Medical History: Coronary Artery Disease (CAD), Hyperlipidemia, Hypertension, Myocardial Infarction ([place]) Additional Past Medical History / Comment(s): Anterior wall [place] 05/18/14, ischemic cardiomyopathy, spinal stenosis, numbness to bilateral legs and feet, BPH, Last Myocardial Infarction Date:: 05/18/2014 History of Any Multi-Drug Resistant Organisms: None Reported Past Surgical History: Heart Catheterization, Heart Catheterization With Stent Additional Past Surgical History / Comment(s): HEART CATH WITH 3 STENTS 05/18/14 (2 stents to LAD) and 06/03/14 (1 stent to obtuse marginal), cardiac cath 2015, colonoscopy-normal Past Anesthesia/Blood Transfusion Reactions: No Reported Reaction Additional Past Anesthesia/Blood Transfusion Reaction / Comment(s): Pt states he has never had general anesthesia. He also has never recieved blood. Date of Last Stent Placement:: 06/03/14 Past Psychological History: No Psychological Hx Reported Additional Psychological History / Comment(s): Pt resides alone. He uses a walker to ambulate due to spinal stenosis making bilateral legs and feet numb. He performs his own ADLs and no longer has any home care. He did use [facility] after his [place] discharge 05/19. Smoking Status: Never smoker Past Alcohol Use History: None Reported Past Drug Use History: None Reported - Past Family History Father Family Medical History: No Reported History Additional Family Medical History / Comment(s): Father in his 80's. Mother Family Medical History: Coronary Artery Disease (CAD) Additional Family Medical History / Comment(s): Mother at age 63yrs and pt believes it may have been due to a heart problem. Medications and Allergies Home Medications Medication Instructions Recorded Confirmed Type Metoprolol Tartrate [Lopressor] 50 mg PO BID #180 tab 05/22/14 04/18/23 Rx Spironolactone [Aldactone] 25 mg PO DAILY #90 tab 05/22/14 04/18/23 Rx Atorvastatin [Lipitor] 40 mg PO HS 06/06/17 04/18/23 History Apixaban [Eliquis] 5 mg PO BID #60 tab 05/26/22 04/18/23 Rx Famotidine [Pepcid] 20 mg PO DAILY #30 tab 05/29/22 04/18/23 Rx Cephalexin [Keflex] 500 mg PO BID #14 cap 04/14/23 04/18/23 Rx Amiodarone [Cordarone] 200 mg PO DAILY 04/18/23 04/18/23 History Finasteride [Proscar] 5 mg PO DAILY 04/18/23 04/18/23 History Losartan Potassium [Cozaar] 25 mg PO BID 04/18/23 04/18/23 History Tamsulosin [Flomax] 0.4 mg PO DAILY #7 cap 04/18/23 Rx Allergies Allergy/AdvReac Type Severity Reaction Status Date / Time No Known Allergies Allergy Verified 04/18/23 09:27 Physical Exam Vitals: Vital Signs Temp Pulse Resp BP Pulse Ox 04/22/23 09:30 85 20 141/69 94 L 04/22/23 09:15 83 20 146/70 93 L 04/22/23 09:01 97.2 F L 80 20 135/61 93 L 04/22/23 01:05 98.3 F 65 18 168/68 93 L 04/21/23 20:00 18 04/21/23 19:09 97.5 F L 59 L 18 158/76 96 04/21/23 14:29 97.7 F 56 L 18 159/73 91 L Intake and Output 04/21/23 04/22/23 04/22/23 22:59 06:59 14:59 Intake Total 0 750 Output Total 800 800 Balance -800 -800 750 Intake: IV 750 Oral 0 Output: Urine 800 800 Other: Voiding Method External Catheter External Catheter Results 04/21/23 06:22 04/22/23 05:56 Comprehensive Metabolic Panel 04/22/23 Range/Units 05:56 Sodium 131 L (135-145) mmol/L Potassium 4.6 (3.5-5.5) mmol/L Chloride 99 (96-109) mmol/L Carbon Dioxide 20.6 L (21.6-31.8) mmol/L BUN 20.2 (9.0-27.0) mg/dL Creatinine 1.2 (0.6-1.5) mg/dL Glucose 124 H (70-110) mg/dL Calcium 9.0 (8.7-10.3) mg/dL Current Medications Generic Name Dose Route Start Last Admin Trade Name Freq PRN Reason Stop Dose Admin Hydrocodone Bitart/Acetaminophen 1 each 04/18/23 11:47 04/21/23 21:16 Hydrocodone/Apap 5-325mg 1 Each Tab PO 1 each Q4HR PRN Administration Moderate Pain (Scale 4 to 6) Atorvastatin Calcium 40 mg 04/18/23 21:00 04/21/23 21:16 Atorvastatin 40 Mg Tab PO 40 mg HS MARJAN Administration Famotidine 20 mg 04/19/23 09:00 04/22/23 11:25 Famotidine 20 Mg Tab PO 20 mg DAILY MARJAN Administration Finasteride 5 mg 04/19/23 09:00 04/22/23 11:24 Finasteride 5 Mg Tab PO 5 mg DAILY MARJAN Administration Levofloxacin 500 mg/ IV 100 mls @ 100 mls/hr 04/23/23 09:00 Solution IVPB Q48H MARJAN Protocol Losartan Potassium 25 mg 04/18/23 21:00 04/22/23 11:24 Losartan 25 Mg Tab PO 25 mg BID MARJAN Administration Naloxone HCl 0.2 mg 04/18/23 11:47 Naloxone 0.4 Mg/Ml 1 Ml Vial IV Q2M PRN Opioid Reversal Intake and Output 04/21/23 04/22/23 04/22/23 22:59 06:59 14:59 Intake Total 0 750 Output Total 800 800 Balance -800 -800 750 Intake: IV 750 Oral 0 Output: Urine 800 800 Other: Voiding Method External Catheter External Catheter 04/21/23 06:22 04/22/23 05:56
[2023-04-22] MEDS: HYDROcodone/APAP 5-325MG 1 EACH TAB PO PRN ×2 (13:29→23:46)
[2023-04-22] MEDS: METOPROLOL TARTRATE 50 MG TAB PO SCH ×2 (15:02→20:39)
[2023-04-22] MEDS: AMIODARONE 200 MG TAB PO SCH (15:02)
[2023-04-22] MEDS: ATORVASTATIN 40 MG TAB PO SCH (20:39)
[2023-04-22] MEDS ORDERED: METOPROLOL TARTRATE 50 MG TAB PO SCH (21:00)
--- NOTE | 2023-04-23 02:57 | P.PN ---
Subjective Progress Note Date: 04/22/23 Patient is a 87-year-old male with a past medical history of hypertension, hyperlipidemia, history of [place], coronary artery disease history of stent placement, mild ischemic cardiomyopathy and paroxysmal atrial fibrillation on anticoagulation with Eliquis presents to ER with complaints of blood in the urine for the past 1 week. Patient is also having right flank pain for the past 2 days. Also having increased frequency of urination. Patient was seen in the ER on 04/14/2023. Urine culture was sent and patient was discharged home on antibiotics Keflex for 1 week. Patient is still having increased frequency and left flank pain. Urine is more light-colored currently. Denies any fever. Patient is also having generalized weakness and multiple falls and unable to get out of bed. Patient has been lying in the bed with urine as per family. Was brought to the ER for further evaluation. CT of the abdomen pelvis showed minimal left hydronephrosis secondary to obstructing 4 mm calculus at the ureterovesicular junction. Prostamegaly. Moderate cardiomegaly and small hiatal hernia. Laboratory data showed WBC 9.4 hemoglobin 12.3 and platelets 212. BUN 32 and creatinine 1.38 and blood sugar 122. Urinalysis showed colorless and trace blood and trace leukocyte esterase with elevated WBCs 9. 04/19/2023 Patient is seen and evaluated in follow-up this morning with continued frequency in urination and pain although somewhat improved from yesterday. Patient with significant weakness awaiting physical therapy evaluation. Patient is currently afebrile with no reports of chest pain or shortness of breath. Patient reports to tolerating diet with no reported nausea or vomiting. Patient will likely need rehab and will consult discuss further with case management. 04/20/2023 Patient is seen in follow-up this morning currently sitting up in the chair. Patient was able to work with physical therapy reporting extreme weakness and almost difficulty with ambulation and getting up out of the bed. Patient reports he felt like he was going to fall trying to transfer to the chair. Patient reports he does live at home and was independent in ADLs and gait prior to this. Patient will benefit from ECF and will discuss further with case management about discharge planning. Urology following with no plans for immediate surgical intervention although patient continues to be symptomatic or having worsening pain that may require intervention at this admission. Continue to hold anticoagulation for now. Hematuria is improved and patient reports continued frequency but not having pain. Patient denies chest pain, shortness of breath, or palpitations. Patient reports to tolerating diet with no reports of nausea or vomiting noted. Review of systems: Constitutional: No reports of fatigue, fever, or chills Cardiovascular: No reports of chest pain or palpitations Respiratory: No reports of shortness of breath or cough GI: No reports of nausea, vomiting, or diarrhea : No reports of dysuria or retention, reports continued frequency Neurovascular: reports of generalized weakness All medications have been reviewed PHYSICAL EXAMINATION: Patient is sitting up in the chair, no acute distress, awake alert and oriented.. HEENT: Normocephalic. Neck is supple. Pupils reactive. Nostrils clear. Oral cavity is moist. Neck reveals no JVD, carotid bruits, or thyromegaly. CHEST EXAMINATION: Trachea is central. Symmetrical expansion. Lung lopez clear to auscultation and percussion. CARDIAC: Normal S1, S2 with no gallops. No murmurs ABDOMEN: Soft. Bowel sounds present. Nontender. No organomegaly. No abdominal bruits. Extremities: reveal no edema. No clubbing or cyanosis Neurologically awake, alert, oriented x3 with well-coordinated movements. No focal deficits noted, generalized weakness Skin: No rash or skin lesions. Psychiatric: Cooperative. Non-suicidal Musculoskeletal: No joint swelling or deformity. Normal range of motion. Assessment: Left flank pain with minimal hydronephrosis secondary to obstructing 4 mm calculus at the UVJ Hematuria secondary to above, improving Acute urinary tract infection with recent cultures showing E. coli and Proteus. Paroxysmal atrial fibrillation on anticoagulation with Eliquis Coronary artery disease history of stent placement Stroke IA Hypertension Hyperlipidemia Mild ischemic cardiomyopathy Gait dysfunction with generalized weakness BPH DVT prophylaxis. GI prophylaxis Full code Plan: Patient will be continued on gentle IV hydration and antibiotics in the form of Levaquin. Urinalysis slightly positive although white count was low and no cultures were obtained Eliquis is on hold due to hematuria and possible intervention by urology. Urology evaluated the patient recommending conservative management at this time and if patient has continued pain may consider surgery Home medications reviewed and resumed PT OT evaluated the patient recommending rehab. Patient reports he was having difficulty even getting up out of the bed and standing and he was normally independent prior to this Encouraged increased activity as tolerated and will discuss with case management about discharge planning and insurance authorization for ECF Will follow-up with repeat labs Objective - Vital Signs Vital signs: Vital Signs Temp 97.2 F L 04/22/23 09:01 Pulse 111 H 04/22/23 11:48 Resp 20 04/22/23 09:30 BP 169/92 04/22/23 11:48 Pulse Ox 94 L 04/22/23 09:30 FiO2 Intake & Output 04/22/23 04/22/23 04/23/23 06:59 18:59 06:59 Intake Total 0 750 Output Total 800 700 Balance -800 50 Intake: IV 750 Oral 0 Output: Urine 800 700 Other: Voiding Method External Catheter External Catheter - Labs CBC & Chem 7: 04/21/23 06:22 04/22/23 05:56 Labs: Abnormal Lab Results - Last 24 Hours (Table) 04/22/23 Range/Units 05:56 Sodium 131 L (135-145) mmol/L Carbon Dioxide 20.6 L (21.6-31.8) mmol/L Est GFR (CKD-EPI) 58 L (>=60) Glucose 124 H (70-110) mg/dL
--- NOTE | 2023-04-23 02:57 | P.PN ---
Subjective Progress Note Date: 04/21/23 Patient is a 87-year-old male with a past medical history of hypertension, hyperlipidemia, history of [place], coronary artery disease history of stent placement, mild ischemic cardiomyopathy and paroxysmal atrial fibrillation on anticoagulation with Eliquis presents to ER with complaints of blood in the urine for the past 1 week. Patient is also having right flank pain for the past 2 days. Also having increased frequency of urination. Patient was seen in the ER on 04/14/2023. Urine culture was sent and patient was discharged home on antibiotics Keflex for 1 week. Patient is still having increased frequency and left flank pain. Urine is more light-colored currently. Denies any fever. Patient is also having generalized weakness and multiple falls and unable to get out of bed. Patient has been lying in the bed with urine as per family. Was brought to the ER for further evaluation. CT of the abdomen pelvis showed minimal left hydronephrosis secondary to obstructing 4 mm calculus at the ureterovesicular junction. Prostamegaly. Moderate cardiomegaly and small hiatal hernia. Laboratory data showed WBC 9.4 hemoglobin 12.3 and platelets 212. BUN 32 and creatinine 1.38 and blood sugar 122. Urinalysis showed colorless and trace blood and trace leukocyte esterase with elevated WBCs 9. 04/19/2023 Patient is seen and evaluated in follow-up this morning with continued frequency in urination and pain although somewhat improved from yesterday. Patient with significant weakness awaiting physical therapy evaluation. Patient is currently afebrile with no reports of chest pain or shortness of breath. Patient reports to tolerating diet with no reported nausea or vomiting. Patient will likely need rehab and will consult discuss further with case management. 04/20/2023 Patient is seen in follow-up this morning currently sitting up in the chair. Patient was able to work with physical therapy reporting extreme weakness and almost difficulty with ambulation and getting up out of the bed. Patient reports he felt like he was going to fall trying to transfer to the chair. Patient reports he does live at home and was independent in ADLs and gait prior to this. Patient will benefit from ECF and will discuss further with case management about discharge planning. Urology following with no plans for immediate surgical intervention although patient continues to be symptomatic or having worsening pain that may require intervention at this admission. Continue to hold anticoagulation for now. Hematuria is improved and patient reports continued frequency but not having pain. Patient denies chest pain, shortness of breath, or palpitations. Patient reports to tolerating diet with no reports of nausea or vomiting noted. Review of systems: Constitutional: No reports of fatigue, fever, or chills Cardiovascular: No reports of chest pain or palpitations Respiratory: No reports of shortness of breath or cough GI: No reports of nausea, vomiting, or diarrhea : No reports of dysuria or retention, reports continued frequency Neurovascular: reports of generalized weakness All medications have been reviewed PHYSICAL EXAMINATION: Patient is sitting up in the chair, no acute distress, awake alert and oriented.. HEENT: Normocephalic. Neck is supple. Pupils reactive. Nostrils clear. Oral cavity is moist. Neck reveals no JVD, carotid bruits, or thyromegaly. CHEST EXAMINATION: Trachea is central. Symmetrical expansion. Lung lopez clear to auscultation and percussion. CARDIAC: Normal S1, S2 with no gallops. No murmurs ABDOMEN: Soft. Bowel sounds present. Nontender. No organomegaly. No abdominal bruits. Extremities: reveal no edema. No clubbing or cyanosis Neurologically awake, alert, oriented x3 with well-coordinated movements. No focal deficits noted, generalized weakness Skin: No rash or skin lesions. Psychiatric: Cooperative. Non-suicidal Musculoskeletal: No joint swelling or deformity. Normal range of motion. Assessment: Left flank pain with minimal hydronephrosis secondary to obstructing 4 mm calculus at the UVJ Hematuria secondary to above, improving Acute urinary tract infection with recent cultures showing E. coli and Proteus. Paroxysmal atrial fibrillation on anticoagulation with Eliquis Coronary artery disease history of stent placement Stroke [place] Hypertension Hyperlipidemia Mild ischemic cardiomyopathy Gait dysfunction with generalized weakness BPH DVT prophylaxis. GI prophylaxis Full code Plan: Patient will be continued on gentle IV hydration and antibiotics in the form of Levaquin. Urinalysis slightly positive although white count was low and no cultures were obtained Eliquis is on hold due to hematuria and possible intervention by urology. Urology evaluated the patient recommending conservative management at this time and if patient has continued pain may consider surgery Home medications reviewed and resumed PT OT evaluated the patient recommending rehab. Patient reports he was having difficulty even getting up out of the bed and standing and he was normally independent prior to this Encouraged increased activity as tolerated and will discuss with case management about discharge planning and insurance authorization for ECF Will follow-up with repeat labs Objective - Vital Signs Vital signs: Vital Signs Temp 97.7 F 04/21/23 14:29 Pulse 56 L 04/21/23 14:29 Resp 18 04/21/23 14:29 BP 159/73 04/21/23 14:29 Pulse Ox 91 L 04/21/23 14:29 FiO2 Intake & Output 04/21/23 04/21/23 04/22/23 06:59 18:59 06:59 Intake Total 1400 Output Total 1400 1700 Balance 0 -1700 Intake: Intake, IV Titration 900 Amount Sodium Chloride 0.9% 1, 900 000 ml @ 75 mls/hr IV . [id number] MARJAN Rx#:[id number] Oral 500 Output: Urine 1400 1700 Other: Voiding Method Indwelling Catheter External Catheter - Labs CBC & Chem 7: 04/21/23 06:22 04/22/23 05:56 Labs: Abnormal Lab Results - Last 24 Hours (Table) 04/21/23 04/21/23 Range/Units 06:22 06:22 RBC 3.73 L (4.40-5.60) X 10*6/uL Hgb 11.3 L (13.0-17.0) d/dL Hct 35.1 L (39.6-50.0) % Monocytes # 1.02 H (0.20-1.00) X 10*3/uL Sodium 133 L (135-145) mmol/L Est GFR (CKD-EPI) 48 L (>=60) Glucose 129 H (70-110) mg/dL
[2023-04-23] MEDS: METOPROLOL TARTRATE 50 MG TAB PO SCH ×2 (08:37→20:49)
[2023-04-23] MEDS: LOSARTAN 25 MG TAB PO SCH ×2 (08:37→20:49)
[2023-04-23] MEDS: FINASTERIDE 5 MG TAB PO SCH (08:37)
[2023-04-23] MEDS: FAMOTIDINE 20 MG TAB PO SCH (08:37)
[2023-04-23] MEDS: AMIODARONE 200 MG TAB PO SCH (08:38)
[2023-04-23] MEDS ORDERED: LEVOFLOXACIN 500MG-D5W PMX 500 MG in DEXTROSE/WATER 1 100ML.BAG IVPB SCH (09:00)
[2023-04-23] MEDS ORDERED: AMIODARONE 200 MG TAB PO SCH (09:00)
--- NOTE | 2023-04-23 09:40 | P.PN ---
Subjective Progress Note Date: 04/23/23 The 87-year-old male patient is in the hospital with the ureteral calculus. did a left ureteroscopy and laser lithotripsy with stent placement yesterday. He states that he is still weak today. Objective - Vital Signs Vital signs: Vital Signs Temp 97.7 F 04/23/23 06:58 Pulse 59 L 04/23/23 06:58 Resp 18 04/23/23 06:58 BP 144/64 04/23/23 06:58 Pulse Ox 95 04/23/23 06:58 FiO2 Intake & Output 04/22/23 04/23/23 04/23/23 18:59 06:59 18:59 Intake Total 750 600 Output Total 700 800 Balance 50 -200 Intake: IV 750 Oral 600 Output: Urine 700 800 Other: Voiding Method External Catheter Indwelling Catheter - Genitourinary Genitourinary Comment(s): The stent was pulled out at the urethral meatus on the string - Labs CBC & Chem 7: 04/21/23 06:22 04/22/23 05:56 Labs: Abnormal Lab Results - Last 24 Hours (Table) 04/22/23 Range/Units 05:56 Sodium 131 L (135-145) mmol/L Carbon Dioxide 20.6 L (21.6-31.8) mmol/L Est GFR (CKD-EPI) 58 L (>=60) Glucose 124 H (70-110) mg/dL Assessment and Plan Assessment: Impression: Status post left ureteroscopy with laser lithotripsy. Recommendations: The stent has been removed as he actually pull it out himself. I will remove his Kaiser. When he is able to ambulate and tolerate fluids he can be discharged home and follow-up in 1 week with
[2023-04-23 10:57] LABS: Basophils # (A) 0.05 X 10*3/uL (0.00-0.10); Basophils % (A) 0.5 %; Eosinophils # (A) 0.44 X 10*3/uL (0.04-0.35); Eosinophils % (A) 4.7 %; HCT 35.3 % (39.6-50.0); HGB 11.3 d/dL (13.0-17.0); Lymphocytes # (A) 1.07 X 10*3/uL (0.90-5.00); Lymphocytes % (A) 11.5 %; MCH 30.2 pg (27.0-32.0); MCV 94.4 FL (80.0-97.0); Mean Platelet Volume 10.2 FL (9.5-12.2); Monocytes # (A) 0.96 X 10*3/uL (0.20-1.00); Monocytes % (A) 10.3 %; NRBC Per 100 WBC 0 X 10*3/uL (0.00-0.01); Neutrophils # (A) 6.73 X 10*3/uL (1.80-7.70); Neutrophils % (A) 72.2 %; Platelet Count 222 X 10*3/uL (140-440); RBC 3.74 X 10*6/uL (4.40-5.60); RDW 14.2 % (11.5-14.5); WBC 9.32 X 10*3/uL (4.50-10.00)
[2023-04-23 11:03] LABS: BUN/Creat Ratio 14.93 Ratio (12.00-20.00); Blood Urea Nitrogen 20.9 mg/dL (9.0-27.0); Glucose 112 mg/dL (70-110)
[2023-04-23 11:04] LABS: Calcium 8.9 mg/dL (8.7-10.3); Carbon Dioxide 24.4 mmol/L (21.6-31.8); Chloride 100 mmol/L (96-109); Potassium 4.8 mmol/L (3.5-5.5); Sodium 132 mmol/L (135-145)
--- NOTE | 2023-04-23 14:52 | P.PN ---
Subjective Progress Note Date: 04/23/23 HISTORY OF PRESENTING ILLNESS 87-year-old with past medical history of hypertension, hyperlipidemia, coronary artery disease with prior stenting, mild cardiomyopathy with EF of 45% with apical hypokinesia is known to Dr. Alford. Patient had a renal stone and underwent a cystoscopy procedure. Yesterday on telemetry it was noticed that patient had a transient heart rate in 30s for which cardiology was consulted. Patient has chronic atrial fibrillation managed on amiodarone and metoprolol. Currently he is postop cystoscopy and is drowsy. He tolerated the procedure very well. He denied having any lightheadedness or dizziness chest pain shortness of breath. Currently he is in atrial fibrillation with controlled rate. He is hemodynamically stable. 04/23 Patient is seen today in follow-up. He states he has no pain, no Kaiser catheter. He denies having any chest pain or pressure. No lightheadedness or dizziness. He states he has not been walking due to extreme weakness since he's been in the hospital. He states he normally checks his heart rate at home 3-4 times a day and he is always runs around 60. His heart rate today is 59-64. B lood pressure 122/51, pulse ox 95% on room air. Telemetry is sinus rhythm. Repeat lab work reveals hemoglobin 11.3, potassium 4.8, creatinine 1.4. We will plan to resume eliquis tonight if it's okay with urology. PHYSICAL EXAMINATION Vital signs reviewed. Head: Normocephalic. Eyes: Sclerae nonicteric. Neck: Brisk carotid upstroke, no jugular venous distention. Lungs: Clear to auscultation. Heart: Regular rate and rhythm, S1-S2, no S3, no murmur or rub. Abdomen: Soft nontender, positive bowel sounds no organomegaly. Extremities: No edema, intact distal pulses. ASSESSMENT Transient bradycardia, resolved Chronic atrial fibrillation on amiodarone and metoprolol Renal calculi status post cystoscopy Essential hypertension CAD status post PCI Cardio myopathy with EF of 45% with apical hypokinesia PLAN Continue his current cardiac medications without any changes. Resume his amiodarone and metoprolol resume eliquis today if okay with urology. Cardiology will sign off this case and follow on an as-needed basis. Please reconsult for any new concerns. Patient may follow-up in the office in one to 2 weeks. Nurse practitioner note has been reviewed, I agree with the documented findings and plan of care. Patient was seen and examined. Objective - Vital Signs Vital signs: Vital Signs Temp 97.5 F L 04/23/23 12:11 Pulse 64 04/23/23 12:11 Resp 18 04/23/23 12:11 BP 122/51 04/23/23 12:11 Pulse Ox 95 04/23/23 12:11 FiO2 Intake & Output 04/22/23 04/23/23 04/23/23 18:59 06:59 18:59 Intake Total 750 600 Output Total 700 800 475 Balance 50 -200 -475 Intake: IV 750 Oral 600 Output: Urine 700 800 475 Uretheral (Kaiser) 475 Other: Voiding Method External Catheter Indwelling Catheter Indwelling Catheter - Labs CBC & Chem 7: 04/23/23 06:27 04/23/23 06:27 Labs: Abnormal Lab Results - Last 24 Hours (Table) 04/23/23 04/23/23 Range/Units 06:27 06:27 RBC 3.74 L (4.40-5.60) X 10*6/uL Hgb 11.3 L (13.0-17.0) d/dL Hct 35.3 L (39.6-50.0) % Eosinophils # 0.44 H (0.04-0.35) X 10*3/uL Sodium 132 L (135-145) mmol/L Est GFR (CKD-EPI) 48 L (>=60) Glucose 112 H (70-110) mg/dL
[2023-04-23] MEDS: HYDROcodone/APAP 5-325MG 1 EACH TAB PO PRN ×2 (16:45→22:36)
[2023-04-23] MEDS: APIXABAN 5 MG TAB PO SCH (20:49)
[2023-04-23] MEDS: ATORVASTATIN 40 MG TAB PO SCH (20:49)
--- NOTE | 2023-04-24 02:36 | P.PN ---
Subjective Progress Note Date: 04/23/23 Patient is a 87-year-old male with a past medical history of hypertension, hyperlipidemia, history of PR, coronary artery disease history of stent placement, mild ischemic cardiomyopathy and paroxysmal atrial fibrillation on anticoagulation with Eliquis presents to ER with complaints of blood in the uri ne for the past 1 week. Patient is also having right flank pain for the past 2 days. Also having increased frequency of urination. Patient was seen in the ER on 04/14/2023. Urine culture was sent and patient was discharged home on antibiotics Keflex for 1 week. Patient is still having increased frequency and left flank pain. Urine is more light-colored currently. Denies any fever. Patient is also having generalized weakness and multiple falls and unable to get out of bed. Patient has been lying in the bed with urine as per family. Was brought to the ER for further evaluation. CT of the abdomen pelvis showed minimal left hydronephrosis secondary to obstructing 4 mm calculus at the ureterovesicular junction. Prostamegaly. Moderate cardiomegaly and small hiatal hernia. Laboratory data showed WBC 9.4 hemoglobin 12.3 and platelets 212. BUN 32 and creatinine 1.38 and blood sugar 122. Urinalysis showed colorless and trace blood and trace leukocyte esterase with elevated WBCs 9. 04/19/2023 Patient is seen and evaluated in follow-up this morning with continued frequency in urination and pain although somewhat improved from yesterday. Patient with significant weakness awaiting physical therapy evaluation. Patient is currently afebrile with no reports of chest pain or shortness of breath. Patient reports to tolerating diet with no reported nausea or vomiting. Patient will likely need rehab and will consult discuss further with case management. 04/20/2023 Patient is seen in follow-up this morning currently sitting up in the chair. Patient was able to work with physical therapy reporting extreme weakness and almost difficulty with ambulation and getting up out of the bed. Patient reports he felt like he was going to fall trying to transfer to the chair. Patient reports he does live at home and was independent in ADLs and gait prior to this. Patient will benefit from ECF and will discuss further with case management about discharge planning. Urology following with no plans for immediate surgical intervention although patient continues to be symptomatic or having worsening pain that may require intervention at this admission. Continue to hold anticoagulation for now. Hematuria is improved and patient reports continued frequency but not having pain. Patient denies chest pain, shortness of breath, or palpitations. Patient reports to tolerating diet with no reports of nausea or vomiting noted. 04/23/2023 Patient is seen in follow-up this morning status post urology placing the stent along with indwelling Kaiser catheter. Apparently patient removed the stent and Kaiser catheter is being removed for trial void and any further retention. Oral anticoagulation has been resumed and cardiology has evaluated the patient recommending outpatient follow-up. Patient continues with significant weakness and planning on ECF. Patient is currently afebrile with no reports of chest pain or shortness of breath. Patient is tolerating diet with no reported nausea or vomiting. Will follow-up with case management in the morning about discharge planning. Review of systems: Constitutional: No reports of fatigue, fever, or chills Cardiovascular: No reports of chest pain or palpitations Respiratory: No reports of shortness of breath or cough GI: No reports of nausea, vomiting, or diarrhea : No reports of dysuria Neurovascular: reports of generalized weakness All medications have been reviewed PHYSICAL EXAMINATION: Patient is sitting up in the chair, elderly male, awake alert and oriented.. HEENT: Normocephalic. Neck is supple. Pupils reactive. Nostrils clear. Oral cavity is moist. Neck reveals no JVD, carotid bruits, or thyromegaly. CHEST EXAMINATION: Trachea is central. Symmetrical expansion. Lung lopez clear to auscultation and percussion. CARDIAC: Normal S1, S2 with no gallops. No murmurs ABDOMEN: Soft. Bowel sounds present. Nontender. No organomegaly. No abdominal bruits. Extremities: reveal no edema. No clubbing or cyanosis Neurologically awake, alert, oriented x3 with well-coordinated movements. No focal deficits noted, generalized weakness Skin: No rash or skin lesions. Psychiatric: Cooperative. Non-suicidal Musculoskeletal: No joint swelling or deformity. Normal range of motion. Assessment: Left flank pain with minimal hydronephrosis secondary to obstructing 4 mm calculus at the UVJ status post ureteral stent placement with subsequent removal Hematuria secondary to above, improving Acute urinary tract infection with recent cultures showing E. coli and Proteus. Paroxysmal atrial fibrillation on anticoagulation with Eliquis Coronary artery disease history of stent placement Stroke PR Hypertension Hyperlipidemia Mild ischemic cardiomyopathy Gait dysfunction with generalized weakness BPH DVT prophylaxis. GI prophylaxis Full code Plan: Patient will be continued on gentle IV hydration and is status post ureteral stent placement with urology. Apparently patient removed the stent and Kaiser ca theter is being removed for trial void. Patient to follow-up with urology outpatient Home medications reviewed and resumed PT OT evaluated the patient recommending rehab. Patient reports he was having difficulty even getting up out of the bed and standing and he was normally independent prior to this. Case management/social work following and will follow-up with them in the a.m. about discharge planning to the [facility]. Encouraged increased activity as tolerated Encouraged oral intake Will follow-up with repeat labs Due to multiple complex medical issues, prognosis is guarded Possible discharge in the next 24 hours The impression and plan of care has been dictated by Zahra Dumont, Nurse Practitioner as directed. Dr. Mushtaq MD I have performed a history and examination and MDM of this patient, discussed the same with the dictator, and agree with the dictator's assessment and plan as written ,documented as a scribe. Based on total visit time, I have performed more than 50% of the visit. Objective - Vital Signs Vital signs: Vital Signs Temp 97.5 F L 04/23/23 12:11 Pulse 64 04/23/23 12:11 Resp 18 04/23/23 12:11 BP 122/51 04/23/23 12:11 Pulse Ox 95 04/23/23 12:11 FiO2 Intake & Output 04/22/23 04/23/23 04/23/23 18:59 06:59 18:59 Intake Total 750 600 Output Total 700 800 475 Balance 50 -200 -475 Intake: IV 750 Oral 600 Output: Urine 700 800 475 Uretheral (Kaiser) 475 Other: Voiding Method External Catheter Indwelling Catheter Indwelling Catheter - Labs CBC & Chem 7: 04/23/23 06:27 04/23/23 06:27 Labs: Abnormal Lab Results - Last 24 Hours (Table) 04/23/23 04/23/23 Range/Units 06:27 06:27 RBC 3.74 L (4.40-5.60) X 10*6/uL Hgb 11.3 L (13.0-17.0) d/dL Hct 35.3 L (39.6-50.0) % Eosinophils # 0.44 H (0.04-0.35) X 10*3/uL Sodium 132 L (135-145) mmol/L Est GFR (CKD-EPI) 48 L (>=60) Glucose 112 H (70-110) mg/dL
[2023-04-24] MEDS: HYDROcodone/APAP 5-325MG 1 EACH TAB PO PRN ×2 (05:44→12:54)
[2023-04-24] MEDS: FAMOTIDINE 20 MG TAB PO SCH (08:52)
[2023-04-24] MEDS: AMIODARONE 200 MG TAB PO SCH (08:52)
[2023-04-24] MEDS: APIXABAN 5 MG TAB PO SCH (08:52)
[2023-04-24] MEDS: LOSARTAN 25 MG TAB PO SCH (08:52)
[2023-04-24] MEDS: METOPROLOL TARTRATE 50 MG TAB PO SCH (08:52)
[2023-04-24] MEDS: FINASTERIDE 5 MG TAB PO SCH (08:52)
[2023-04-24 11:17] LABS: BUN/Creat Ratio 18.36 Ratio (12.00-20.00); Blood Urea Nitrogen 25.7 mg/dL (9.0-27.0); Calcium 8.8 mg/dL (8.7-10.3); Carbon Dioxide 23.4 mmol/L (21.6-31.8); Chloride 98 mmol/L (96-109); Glucose 117 mg/dL (70-110); Magnesium 1.8 mg/dL (1.5-2.4); Potassium 4.4 mmol/L (3.5-5.5); Sodium 130 mmol/L (135-145)
[2023-04-24 13:13] VITALS: BP 125/71; PULSE 59; RESP 18; TEMP 97.5
--- NOTE | 2023-04-24 13:55 | P.DS ---
Providers Date of admission: 04/18/23 14:15 Expected date of discharge: 04/24/23 Attending physician: Marialuisa Dunham Consults: 04/18/23 20:03 Consult Physician Routine Consulting Provider: Keyon Jennings Consult Reason/Comments: UVJ stone Do you want consulting provider notified?: Yes 04/21/23 14:29 Consult Physician Routine Consulting Provider: Demarcus Leal Consult Reason/Comments: bradycardia Do you want consulting provider notified?: Yes Primary care physician: Travon Larios Hospital Course: Final diagnosis Left flank pain with minimal hydronephrosis secondary to obstructing 4 mm calculus at the UVJ status post ureteral stent placement with subsequent removal Hematuria secondary to above, improving Acute urinary tract infection with recent cultures showing E. coli and Proteus. Urinary retention requiring indwelling Kaiser catheter Paroxysmal atrial fibrillation on anticoagulation with Eliquis Coronary artery disease history of stent placement Stroke AK Hypertension Hyperlipidemia Mild ischemic cardiomyopathy Gait dysfunction with generalized weakness BPH DVT prophylaxis. GI prophylaxis Full code Discharge disposition Patient is being discharged in a stable condition with guarded prognosis to [facility]. Patient will follow-up with Dr. Larios in the outpatient setting upon discharge. Patient is to continue with indwelling Kaiser catheter and outpatient follow-up with urology as scheduled. Total time taken is greater than 35 minutes. Hospital course This is a 87-year-old male who was recently admitted with hematuria noted in the blood and also some right flank pain and frequency of urination. Patient was in the ER on the ninth and urine culture showing some abnormalities and patient was continued on a week of antibiotics. Patient had follow-up CT abdomen and pelvis showing minimal left hydronephrosis secondary to an obstructing 4 mm calculus at the ureterovesicular junction. Patient did undergo stent placement and sub sequent removal and hematuria has resolved. Patient has been resumed on oral anticoagulation and will need outpatient follow-up with urology. Patient did have trial void although showing some retention requiring straight catheterization and patient will continue with indwelling Kaiser catheter and close outpatient follow-up with urology in the next week. Patient has been cleared by consultations for discharge. Please refer to consultation notes for further HPI. Patient also to continue on Flomax. Currently no reports of chest pain, shortness of breath, or palpitations. Patient is afebrile. No reports of nausea or vomiting and patient is tolerating diet. Patient will be going [facility] [place] [facility]. Guarded prognosis Physical exam: Gen: This is a 87-year-old male who is awake, alert and oriented 3, hard of hearing, well-developed, well-nourished, elderly-appearing HEENT: Head is atraumatic, normocephalic. Pupils equal, round. Sclerae is anicteric. NECK: Supple. No JVD. No lymphadenopathy. No thyromegaly. LUNGS: Clear to auscultation. No wheezes or rhonchi. No intercostal retractions. HEART: Regular rate and rhythm. No murmur. ABDOMEN: Soft. Obese. Bowel sounds are present. No masses. No tenderness. EXTREMITIES: No pedal edema. No calf tenderness. NEUROLOGICAL: Patient is awake, alert and oriented x3. Cranial nerves 2 through 12 are grossly intact. Diffusely weak Please refer to medication reconciliation sheet for a list of medications. The impression and plan of care has been dictated by Zahra Dumont, Nurse Practitioner as directed. Dr. Mushtaq MD I have performed a history and examination and MDM of this patient, discussed the same with the dictator, and agree with the dictator's assessment and plan as written ,documented as a scribe. Based on total visit time, I have performed more than 50% of the visit. Patient Condition at Discharge: Fair Plan - Discharge Summary Discharge Rx Participant: No New Discharge Prescriptions: New Tamsulosin [Flomax] 0.4 mg PO DAILY #7 cap Continue Metoprolol Tartrate [Lopressor] 50 mg PO BID #180 tab Atorvastatin [Lipitor] 40 mg PO HS Apixaban [Eliquis] 5 mg PO BID #60 tab Losartan Potassium [Cozaar] 25 mg PO BID Finasteride [Proscar] 5 mg PO DAILY Famotidine [Pepcid] 20 mg PO DAILY #30 tab Amiodarone [Cordarone] 200 mg PO DAILY Discontinued Spironolactone [Aldactone] 25 mg PO DAILY #90 tab Cephalexin [Keflex] 500 mg PO BID #14 cap Discharge Medication List Metoprolol Tartrate [Lopressor] 50 mg PO BID #180 tab 05/22/14 [Rx] Atorvastatin [Lipitor] 40 mg PO HS 06/06/17 [History] Apixaban [Eliquis] 5 mg PO BID #60 tab 05/26/22 [Rx] Famotidine [Pepcid] 20 mg PO DAILY #30 tab 05/29/22 [Rx] Amiodarone [Cordarone] 200 mg PO DAILY 04/18/23 [History] Finasteride [Proscar] 5 mg PO DAILY 04/18/23 [History] Losartan Potassium [Cozaar] 25 mg PO BID 04/18/23 [History] Tamsulosin [Flomax] 0.4 mg PO DAILY #7 cap 04/18/23 [Rx] Follow up Appointment(s)/Referral(s): Travon Larios MD [Primary Care Provider] - 1-2 days Russell Tomas MD [STAFF PHYSICIAN] - 1 Week Patient Instructions/Handouts: Kidney Stones (ED) Activity/Diet/Wound Care/Special Instructions: Please return to the Emergency Department if symptoms worsen or any other concerns. Discharge/Stand Alone Forms: Who Do I Call?, Help In The Home, Personal Router Machine Operator Discharge Disposition: TRANSFER TO SNF/ECF
== END 2023-04-24 13:55 | DRG 660 ==
LOC: EC 08:17 → 5NMEDONC 14:15
PROVIDERS: ADMIT Internal Medicine; ATTEND Internal Medicine
PROC: 0TC78ZZ Extirpation of Matter from Left Ureter, Via Natural or Artificial Opening Endoscopic (ICD-10-PCS; principal; 2023-04-22 08:00)
PROC: 0T778DZ Dilation of Left Ureter with Intraluminal Device, Via Natural or Artificial Opening Endoscopic (ICD-10-PCS; principal; 2023-04-22 08:00)
DX: N13.6 Pyonephrosis (principal); I48.20 Chronic atrial fibrillation, unspecified; N20.2 Calculus of kidney with calculus of ureter; R00.1 Bradycardia, unspecified; I25.10 Atherosclerotic heart disease of native coronary artery without angina pectoris; I25.5 Ischemic cardiomyopathy; N40.0 Benign prostatic hyperplasia without lower urinary tract symptoms; B96.20 Unspecified Escherichia coli [E. coli] as the cause of diseases classified elsewhere; B96.4 Proteus (mirabilis) (morganii) as the cause of diseases classified elsewhere; Z79.01 Long term (current) use of anticoagulants; I48.0 Paroxysmal atrial fibrillation; I10 Essential (primary) hypertension; E78.5 Hyperlipidemia, unspecified; I25.2 Old myocardial infarction; R31.9 Hematuria, unspecified; K44.9 Diaphragmatic hernia without obstruction or gangrene; R29.6 Repeated falls; Z79.899 Other long term (current) drug therapy; Z87.442 Personal history of urinary calculi; Z82.49 Family history of ischemic heart disease and other diseases of the circulatory system; Z95.5 Presence of coronary angioplasty implant and graft; Z91.81 History of falling
CPT/HCPCS: 36415; 51798; 74176; 80048; 80053; 81001; 82365; 83605; 83690; 83735; 84443; 85025; 93005; 96361; 96365; 96366; 96375; 99285